=== PATIENT | female | born 1995 | race Caucasian/White ===

== ENCOUNTER 2024-12-03 14:04 | Outpatient (OUT) | payer MEDICAID, SELFPAY ==
[2024-12-03 14:57] LABS: Basophils Absolute Auto 0.1 10^3/uL (0.0-0.1); Basophils Percent Auto 0.5 % (0.2-2.0); Eosinophils Absolute Auto 0.1 10^3/uL (0.0-0.7); Eosinophils Percent Auto 0.5 % (0.9-7.0); Hematocrit 40.4 % (36.0-48.0); Hemoglobin 13.7 g/dL (12.0-16.0); Immature Granulocytes Abs Auto 0.03 10^3/uL (0.00-0.03); Immature Granulocytes Pct Auto 0.3 % (0.0-0.5); Lymphocytes Absolute Auto 2.5 10^3/uL (1.2-3.8); Lymphocytes Percent Auto 26.3 % (20.5-60.0); Mean Corpuscular HGB Conc 33.9 g/dL (29.9-35.2); Mean Corpuscular Hemoglobin 31.1 pg (26.7-34.0); Mean Corpuscular Volume 91.6 fL (81.0-99.0); Mean Platelet Volume 10.9 fL (9.5-13.5); Monocytes Absolute Auto 0.6 10^3/uL (0.3-0.8); Monocytes Percent Auto 6.2 % (1.7-12.0); Neutrophils Absolute Auto 6.2 10^3/uL (1.4-6.5); Neutrophils Percent Auto 66.2 % (43.0-75.0); Platelet Count 264 10^3/uL (150-450); Red Blood Count 4.41 10^6/uL (4.20-5.40); Red Cell Distribution Width 11.9 % (11.0-15.0); White Blood Count 9.4 10^3/uL (4.0-11.0)
[2024-12-03 15:10] LABS: Estimated Average Glucose 120 mg/dL; Glycohemoglobin A1C 5.8 % (4.5-6.2)
[2024-12-03 15:41] LABS: Thyroid Stimulating Hormone 0.869 uIU/mL (0.358-3.740)
[2024-12-03 15:42] LABS: HCG Quantitative <1 mIU/mL
[2024-12-03 15:48] LABS: Free T4 1.06 ng/dL (0.76-1.46)
[2024-12-04 04:07] LABS: FSH 3.6 mIU/mL (.); Luteinizing Hormone(LH) 10.1 mIU/mL (.)
[2024-12-07 02:07] LABS: Anti-Mullerian Hormone (AMH) 3.98 ng/mL (.)
== END 2024-12-03 14:05 | disposition home or self-care (01) ==
LOC: LAB 14:10
PROVIDERS: Visit Provider Obstetrics & Gynecology
DX: Z31.89 Encounter for other procreative management (principal); N97.0 Female infertility associated with anovulation
CPT/HCPCS: 36415; 82397; 82626; 82627; 83001; 83002; 83036; 84439; 84443; 84702; 85025

== ENCOUNTER 2024-12-09 13:02 | Outpatient (OUT) | payer MEDICAID, SELFPAY ==
[2024-12-10 04:08] LABS: Progesterone 12.5 ng/mL (.)
== END 2024-12-09 13:03 | disposition home or self-care (01) ==
LOC: LAB 13:02
PROVIDERS: Visit Provider Obstetrics & Gynecology
DX: N97.0 Female infertility associated with anovulation (principal); Z31.89 Encounter for other procreative management
CPT/HCPCS: 36415; 84144

== ENCOUNTER 2025-01-20 13:19 | Outpatient (OUT) | payer MEDICAID, SELFPAY ==
--- OUTSIDE RECORDS SUMMARY | 2025-01-20 11:10 | XMS_ITS | Encounter Summary ---
Author Organization [facility] Address [address] [place] [address] Care Team Providers Care Tight Barrel Inspector Name Role Phone Virginia Oviedo MD Primary Care Provider [phone] Reason for Visit * Reason Comments Pre-op Visit Encounter Details Date Type Department Care Team (Late st Contact Info) Description 01/20/2025 11:10 AM EDT Consult [facility] [address] [facility] [place] [address] Hung Thompson [address] [place], [facility]11 Pre-op examination; PCOS (polycystic ovarian syndrome); Anovulation; Endometrial polyp Social History Tobacco Use Types Packs/Day Years Used Date Smoking Tobacco: Never Assessed Comments Unknown Sex and Gender Information Value Date Recorded Sex Assigned at Not on file Legal Sex Female 7:28 PM EDT Gender Identity Not on file Sexual Orientation Not on file documented as of this encounter Last Filed Vital Signs Vital Sign Reading Time Taken Comments Blood Pressure 118/70 01/20/2025 11:52 AM EDT Pulse - - Temperature - - Respiratory Rate - - Oxygen Saturation - - Inhaled Oxygen Concentration - - Weight 71.6 kg (157 lb 12.8 oz) 11:52 AM EDT Height - - Body Mass Index 24.71 11/17/2022 12:00 PM EDT documented in this encounter Plan of Treatment Upcoming Encounters Date Type Department Care Team (Late st Contact Info) Description 02/16/2025 2:20 PM EDT Office Visit [facility] [address] [facility] [id number] Hung Thompson, DO [address] [facility] [address] [place], [place] [id number] documented as of this encounter Visit Diagnoses Diagnosis Pre-op examination PCOS (polycystic ovarian syndrome) Polycystic ovaries Anovulation Female infertility associated with anovulation Endometrial polyp Polyp of corpus uteri documented in this encounter Care Teams Tight Barrel Inspector Relationship Specialty Start Date End Date Virginia Oviedo MD [address] [place] [address] PCP - General Family Medicine 11/17/24 documented as of this encounter
--- OUTSIDE RECORDS SUMMARY | 2025-01-20 13:21 | XMS_ITS | Encounter Summary ---
Author Organization [facility] [employer] [facility] tem Address [id number] [address] [place] [address] Care Team Providers Care Government Contracts Manager Name Role Phone Tg Vicente APRN-[facility] Primary Care Provider [phone] Reason for Referral * Diagnostic Imaging (Routine) - Closed Specialty Diagnoses / Procedures Referred By Contac t Referred To Contact Maternal and Medicine Diagnoses Pyelectasis of fetus on ultrasound Procedures US MFM with or without consult Zion Hunter MD [address] [address] Phone: tel: fax: Maternal- Medicine at [address] [address] Phone: tel: fax: Referral ID Status Reason Start Date Expiration Date Visits Re quested Visits Authorized [id number] Closed 11/16/2020 11/16/2021 1 1 Encounter Details Date Type Department Care Team (Late st Contact Info) Description 11/16/2020 Orders Only Maternal- Medicine at [facility] [address] [place] [id number] Zion Hunter MD [address] [address] Pyelectasis of fetus on ultrasound (Primary Dx) Social History Tobacco Use Types Packs/Day Years Used Date Smoking Tobacco: Never Childcare Answer Date Recorded Childcare Unknown 09/28/2020 Employment Answer Date Recorded Employment Unknown 09/28/2020 Purpose - Life Answer Date Recorded Purpose and direction in life Unknown Comments Yes Sex and Gender Information Value Date Recorded Sex Assigned at Not on file Legal Sex Female 2:55 PM EST Gender Identity Not on file Sexual Orientation Not on file COVID-19 Exposure Response Date Recorded In the last month, have you been in contact with someone who was confirmed or suspected to have Coronavirus / COVID-19? No / Unsure 11/16/2020 12:42 PM EDT documented as of this encounter Plan of Treatment Not on file documented as of this encounter Results * [facility] OB FOLLOW-UP, 1 FETUS (02/08/2021 4:26 PM EDT) Anatomical Region Laterality Modality Pelvis Ultrasound 02/08/2021 4:08 PM EDT Impressions 02/08/2021 4:29 PM EDT IMPRESSION: 1. Single intrauterine gestation with EFW at the 87th percentile. AC measures at the 94th percentile. 2. Amniotic fluid volume assessment is normal. 3. Previously identified left pyelectasis not seen on today's exam. Narrative 02/08/2021 4:29 PM EDT OBSTETRICS REPORT (Signed Final 02/08/2021 16:29) PATIENT INFO: ID #: [id number] : [birth year] (25 yrs)(F) Name: JOSE MARIA CORONA Visit Date: 02/08/2021 16:08 PERFORMED BY: Performed By: Arlene Farooq RDMS Attending: Hema Harding MD Referred By: Hung Thompson DO Ref. Address: [address] [place] [address] [place] [address] Location: Maternal Medicine [facility] SERVICE(S) PROVIDED: OB Follow-up, 1 fetus [id number] INDICATIONS: Screening for follow-up survey Z36.2 EVALUATION: Num Of Fetuses: 1 Heart Rate(bpm): 155 Cardiac Activity: Present & appears normal Presentation: Cephalic Placenta: Posterior, away from cervical os Amniotic Fluid EDUAR FV: Subjectively within normal limits EDUAR Sum(cm) %Tile Largest Pocket(cm) 19.96 75 5.88 RUQ(cm) RLQ(cm) LUQ(cm) LLQ(cm) 4.64 5.4 5.88 4.04 BIOMETRY: BPD: 91.5 mm G.Age: 37w 1d > 99 % OFD: 110.9 mm HC: 322.8 mm G.Age: 36w 3d 97 % AC: 304.8 mm G.Age: 34w 3d 94 % FL: 60.1 mm G.Age: 31w 2d 12 % HUM: 54.9 mm G.Age: 32w 0d 44 % CER: 43 mm G.Age: 33w 6d 77 % LV: 3.6 mm CM: 9.3 mm TIB: 55.9 mm G.Age: 32w 6d 65 % CI: 82.5 % 70 - 86 FL/HC: 18.6 % 19.1 - 21.3 HC/AC: 1.06 0.96 - 1.17 FL/BPD: 65.7 % 71 - 87 FL/AC: 19.7 % 20 - 24 Est. FW: 2330 gm 5 lb 2 oz 87 % OB HISTORY: : 1 GESTATIONAL AGE: LMP: 32w 3d Date: 06/26/20 OSCAR: 04/02/21 U/S Today: 34w 6d OSCAR: 03/16/21 Best: 32w 3d Det. By: LMP (06/26/20) OSCAR: 04/02/21 ANATOMY: Cranium: Appears normal Cavum: Appears normal Ventricles: Appear normal Cerebellum: Appears normal Posterior Fossa: Appears normal Heart: Not well visualized RVOT: Not well visualized LVOT: Not well visualized Diaphragm: Appears normal Stomach: Appears normal, left sided Abdomen: Appears normal Cord Vessels: Appears normal (3 vessel cord) Kidneys: Appear normal Bladder: Appears normal CERVIX UTERUS ADNEXA: Cervix Not visualized due to late gest. age Uterus Gravid uterus Left Ovary Not visualized Right Ovary Not visualized Adnexa No adnexal masses identified RECOMMENDATIONS: 1. Subsequent follow up or other follow up as clinically determined by primary OB provider unless otherwise specified by MFM. 2. Results forwarded to ordering provider so they can follow up with the patient as necessary. Hema Harding MD Electronically Signed Final Report 02/08/2021 16:29 Procedure Hema Huffman MD - 02/08/2021 OBSTETRICS REPORT (Signed Final 02/08/2021 16:29) PATIENT INFO: ID #: [id number] : [birth year] (25 yrs)(F) Name: JOSE MARIA Reyna CJ Visit Date: 02/08/2021 16:08 PERFORMED BY: Performed By: Arlene Farooq RDMS Attending: Hema Harding MD Referred By: Hung Thompson DO Ref. Address: [address] [place] [address] [place] [address] Location: Maternal Medicine [facility] SERVICE(S) PROVIDED: OB Follow-up, 1 fetus [id number] INDICATIONS: Screening for follow-up survey Z36.2 EVALUATION: Num Of Fetuses: 1 Heart Rate(bpm): 155 Cardiac Activity: Present & appears normal Presentation: Cephalic Placenta: Posterior, away from cervical os Amniotic Fluid EDUAR FV: Subjectively within normal limits EDUAR Sum(cm) %Tile Largest Pocket(cm) 19.96 75 5.88 RUQ(cm) RLQ(cm) LUQ(cm) LLQ(cm) 4.64 5.4 5.88 4.04 BIOMETRY: BPD: 91.5 mm G.Age: 37w 1d > 99 % OFD: 110.9 mm HC: 322.8 mm G.Age: 36w 3d 97 % AC: 304.8 mm G.Age: 34w 3d 94 % FL: 60.1 mm G.Age: 31w 2d 12 % HUM: 54.9 mm G.Age: 32w 0d 44 % CER: 43 mm G.Age: 33w 6d 77 % LV: 3.6 mm CM: 9.3 mm TIB: 55.9 mm G.Age: 32w 6d 65 % CI: 82.5 % 70 - 86 FL/HC: 18.6 % 19.1 - 21.3 HC/AC: 1.06 0.96 - 1.17 FL/BPD: 65.7 % 71 - 87 FL/AC: 19.7 % 20 - 24 Est. FW: 2330 gm 5 lb 2 oz 87 % OB HISTORY: : 1 GESTATIONAL AGE: LMP: 32w 3d Date: 06/26/20 OSCAR: 04/02/21 U/S Today: 34w 6d OSCAR: 03/16/21 Best: 32w 3d Det. By: LMP (06/26/20) OSCAR: 04/02/21 ANATOMY: Cranium: Appears normal Cavum: Appears normal Ventricles: Appear normal Cerebellum: Appears normal Posterior Fossa: Appears normal Heart: Not well visualized RVOT: Not well visualized LVOT: Not well visualized Diaphragm: Appears normal Stomach: Appears normal, left sided Abdomen: Appears normal Cord Vessels: Appears normal (3 vessel cord) Kidneys: Appear normal Bladder: Appears normal CERVIX UTERUS ADNEXA: Cervix Not visualized due to late gest. age Uterus Gravid uterus Left Ovary Not visualized Right Ovary Not visualized Adnexa No adnexal masses identified RECOMMENDATIONS: 1. Subsequent follow up or other follow up as clinically determined by primary OB provider unless otherwise specified by MFM. 2. Results forwarded to ordering provider so they can follow up with the patient as necessary. Hema Harding MD Electronically Signed Final Report 02/08/2021 16:29 IMPRESSION: IMPRESSION: 1. Single intrauterine gestation with EFW at the 87th percentile. AC measures at the 94th percentile. 2. Amniotic fluid volume assessment is normal. 3. Previously identified left pyelectasis not seen on today's exam. us Zion Hunter MD IMG US ORDERABLES Final Resul t documented in this encounter Visit Diagnoses Diagnosis Pyelectasis of fetus on ultrasound- Primary Pyelectasis of fetus on ultrasound Encounter for other screening follow-up documented in this encounter Care Teams Government Contracts Manager Relationship Specialty Start Date End Date Tg Vicente APRN-[facility] [address] [place] [address] PCP - General Nurse Practitioner 11/16/20 documented as of this encounter
--- OUTSIDE RECORDS SUMMARY | 2025-01-20 13:21 | XMS_ITS | Clinical Summary ---
Author Organization [facility] Address [address] [place] [address] Care Team Providers Care Sr. Strategic Sourcing Manager Name Role Phone Virginia Oviedo MD Primary Care Provider [phone] Allergies Active Allergy Reactions Criticality Noted Date Comments Doxycycline Hives Medium 08/25/2023 Other Reaction(s): hives Tetracycline 09/29/2020 Medications metFORMIN XR (Glucophage-XR) 500 MG 24 hr tabletIndication s:Anovulation,In sulin resistance Take 1 tablet (500 mg) by mouth in the evening. Take with meals Do not crush, chew, or split. 30 tablet 11 12/05/2024 Active Encounters Date Type Department Care Team Description 01/20/2025 11:10 AM EDT Consult [facility] [address] [place] [address] Hung Thompson DO Pre-op examination; PCOS (polycystic ovarian syndrome); Anovulation; Endometrial polyp 12/11/2024 Results Follow-Up [facility] [address] [place] [address] Nelli Felipe LPN 12/09/2024 Clinisync Result Encounter [facility] External Department Unsolicited Hung Thompson DO 12/05/2024 Telephone [facility] [address] [place] [address] Felicita Pinto LPN 12/03/2024 1:00 PM EDT Ancillary Procedure [facility] [address] [place] [phone] Encounter for fertility planning; Anovulation 12/03/2024 Clinisync Result Encounter [facility] External Department Unsolicited Hung Thompson DO 11/24/[address] [facility] [address] [place] [phone] Felicita Pinto LPN Follow-up 11/17/2024 11:20 AM EDT Office Visit [facility] [address] [place] [phone] Hung Thompson DO Encounter for fertility planning; PCOS (polycystic ovarian syndrome); Anovulation 11/17/2024 Bamboo flowsheet [facility] [address] [place] [phone] Hung Thompson DO from Last 3 Months Social History Tobacco Use Types Packs/Day Years Used Date Smoking Tobacco: Never Assessed Comments Unknown Sex and Gender Information Value Date Recorded Sex Assigned at Not on file Legal Sex Female 7:28 PM EDT Gender Identity Not on file Sexual Orientation Not on file Last Filed Vital Signs Vital Sign Reading Time Taken Comments Blood Pressure 118/70 01/20/2025 11:52 AM EDT Pulse - - Temperature - - Respiratory Rate - - Oxygen Saturation - - Inhaled Oxygen Concentration - - Weight 71.6 kg (157 lb 12.8 oz) 025 11:52 AM EDT Height 170.2 cm (5' 7 ) 11/17/2022 12:0 0 PM EDT Body Mass Index 24.71 11/17/2022 12:00 PM EDT Plan of Treatment Upcoming Encounters Date Type Department Care Team (Late st Contact Info) Description 02/16/2025 2:20 PM EDT Office Visit [facility] [address] [place] [phone] Hung Thompson, [address] [place] [address] [place] [address] Health Maintenance Due Date Last Done Comments Influenza Vaccine (#1) 2025 04/20/2008, 2006 Procedures Procedure Name Priority Date/Time Associated Diagnosis Comments ALL PROGESTERONE Routine 12/09/2024 1:11 PM EDT ALL DEHYDROEPIANDROSTERONE Routine 12/03 2:28 PM EDT ALL ANTI-MULLERIAN HORMONE Routine 12/03 2:28 PM EDT ALL FOLLICLE STIMULATING HORMONE Routine 12/03/2024 2:28 PM EDT ALL LUTEINIZING HORMONE Routine 12/04/19 2:28 PM EDT ALL DHEA SULFATE Routine 12/03/2024 2:28 PM EDT ALL THYROXINE (T4) FREE Routine 12/04/19 2:28 PM EDT [facility] PREG QUANT HCG Routine 12/03/2024 2: 28 PM EDT ALL THYROID STIM HORMONE Routine 025 2:28 PM EDT MLR HEMOGLOBIN A1C Routine 12/03/2024 2: 28 PM EDT ALL CBC WITH AUTO DIFF Routine 2:28 PM EDT US PELVIC COMPLETE W/ TV Routine 025 1:42 PM EDT Encounter for fertility planning Anovulation from Last 3 Months Results * ALL PROGESTERONE (12/09/2024 1:11 PM EDT) PROGESTERONE 12.5 . ng/mL [facility] Comment: Follicular phase 0.1 - 0.9 Luteal phase 1.8 - 23.9 Ovulation phase 0.1 - 12.0 First trimester 11.0 - 44.3 Second trimester 25.4 - 83.3 Third trimester 58.7 - 214.0 Postmenopausal 0.0 - 0.1 Performed at: [facility] [id number] Snow Plow Operator: Barrington Reyes PhD, Phone: [phone] 12/09/2024 1:11 PM EDT 12/09/2024 1:14 PM EDT Narrative CLINISYNC - 12/10/2024 4:08 AM EDT Hung Jay DO CLINISYNC Final Result Performing Organization Address [facility] Co de Phone Number [facility] * [facility] PREG QUANT HCG (12/03/2024 2:28 PM EDT) Pathologist [facility] HCG QUANTITATIVE <1 mIU/mL [facility] Comment: 5-50 0.2-1 WEEK 50-500 1-2 WEEKS 100-5,000 2-3 WEEKS 500-10,000 3-4 WEEKS 1,000-50,000 4-5 WEEKS 10,000-100,000 5-6 WEEKS 15,000-200,000 6-8 WEEKS 10,000-100,000 2-3 MONTHS 12/03/2024 2:28 PM EDT 12/03/2024 2:30 PM EDT Narrative CLINISYNC - 12/03/2024 3:42 PM EDT Hung Jay DO CLINISYNC Final Result Performing Organization Address [facility] Co de Phone Number [facility] * MLR HEMOGLOBIN A1C (12/03/2024 2:28 PM EDT) [facility] GLYCOHEMOGLOBIN A1C 5.8 4.5 - 6.2 % [facility] Comment: ADA RECOMMENDED LIMIT 4.0 - 6.0 ADA THERAPEUTIC TARGET < 7.0 ACTION SUGGESTED > 7.0 ESTIMATED AVERAGE GLUCOSE 120 mg/dL TB 12/03/2024 2:28 PM EDT 12/03/2024 2:30 PM EDT Narrative CLINISYNC - 12/03/2024 3:18 PM EDT [facility] Jay DO CLINISYNC Final Result Performing Organization Address [facility] Co de Phone Number [facility] * ALL THYROXINE (T4) FREE (12/03/2024 2:28 PM EDT) FREE T4 1.06 0.76 - 1.46 ng/dL [facility] 12/03/2024 2:28 PM EDT 12/03/2024 2:30 PM EDT Narrative CLINISYNC - 12/03/2024 3:51 PM EDT Hung Jay DO CLINISYNC Final Result Performing Organization Address [facility] Phone Number [facility] * ALL THYROID STIM HORMONE (12/03/2024 2:28 PM EDT) THYROID STIMULATING HORMONE 0.869 0.358 - 3.740 uIU/mL [facility] 12/03/2024 2:28 PM EDT 12/03/2024 2:30 PM EDT Narrative CLINISYNC - 12/03/2024 3:42 PM EDT Hunghuong Ayalao DO CLINISYNC Final Result Performing Organization Address [facility] Number [facility] * ALL LUTEINIZING HORMONE (12/03/2024 2:28 PM EDT) LUTEINIZING HORMONE(LH) 10.1 . mIU/mL [facility] Comment: Adult Female Range Follicular phase 2.4 - 12.6 Ovulation phase 14.0 - 95.6 Luteal phase 1.0 - 11.4 Postmenopausal 7.7 - 58.5 12/03/2024 2:28 PM EDT 12/03/2024 2:30 PM EDT Narrative CLINISYNC - 12/04/2024 4:07 AM EDT Hung Jay DO CLINISYNC Final Result Performing Organization Address [facility] Co de Phone Number [facility] * ALL FOLLICLE STIMULATING HORMONE (12/03/2024 2:28 PM EDT) FSH 3.6 . mIU/mL [facility] Comment: Adult Female Range Follicular phase 3.5 - 12.5 Ovulation phase 4.7 - 21.5 Luteal phase 1.7 - 7.7 Postmenopausal 25.8 - 134.8 Performed at: [address] [id number] Snow Plow Operator: Barrington Reyes PhD, Phone: [phone] 12/03/2024 2:28 PM EDT 12/03/2024 2:30 PM EDT Narrative CLINISYNC - 12/04/2024 4:07 AM EDT Hung Jay DO CLINISYNC Final Result [facility] * ALL DHEA SULFATE (12/03/2024 2:28 PM EDT) DHEA-SULFATE 211.0 84.8 - 378.0 ug/dL [facility] 12/03/2024 2:28 PM EDT 12/03/2024 2:30 PM EDT Narrative CLINISYNC - 12/04/2024 4:07 AM EDT [facility] Jay DO CLINISYNC Final Result [facility] * ALL DEHYDROEPIANDROSTERONE (12/03/2024 2:28 PM EDT) DHEA, SERUM 256 31 - 701 ng/dL [facility] Comment: This test was developed and its performance characteristics determined by [facility]. It has not been cleared or approved by the Food and Drug Administration. Performed at: [address] [id number] Snow Plow Operator: Nilo Campbell MD, Phone: [phone] 12/03/2024 2:28 PM EDT 12/03/2024 2:30 PM EDT Narrative CLINISYNC - 12/12/2024 10:07 PM EDT us Hung Jay DO CLINISYNC Final Result [facility] * (ABNORMAL) ALL CBC WITH AUTO DIFF (12/03/2024 2:28 PM EDT) [facility] WBC 9.4 4.0 - 11.0 10 3/uL [facility] TBH RBC 4.41 4.20 - 5.40 10 6/uL [facility] TBH HGB 13.7 12.0 - 16.0 g/dL [facility] TBH HCT 40.4 36.0 - 48.0 % [facility] TBH MCV 91.6 81.0 - 99.0 fL TBH TBH MCH 31.1 26.7 - 34.0 pg TBH TBH MCHC 33.9 29.9 - 35.2 g/dL [facility] TBH RDW 11.9 11.0 - 15.0 % TBH TBH PLT 264 150 - 450 10 3/uL TBH TBH MPV 10.9 9.5 - 13.5 fL [facility]H NEUTROPHILS PERCENT AUTO 66.2 43.0 - 75.0 % TB[facility] LYMPHOCYTES PERCENT AUTO 26.3 20.5 - 60.0 % TB[facility] MONOCYTES PERCENT AUTO 6.2 1.7 - 12.0 % [facility] TBH EO % 0.5(L) 0.9 - 7.0 % [facility]H BASOPHILS PERCENT AUTO 0.5 0.2 - 2.0 % [facility] IMMATURE GRANULOCYTES PCT AUTO 0.3 0.0 - 0.5 % TBH NEUTROPHILS ABSOLUTE AUTO 6.2 1.4 - 6.5 10 3/uL TB[facility] LYMPHOCYTES ABSOLUTE AUTO 2.5 1.2 - 3.8 10 3/uL TB[facility] MONOCYTES ABSOLUTE AUTO 0.6 0.3 - 0.8 10 3/uL [facility] TBH EO # 0.1 0.0 - 0.7 10 3/uL TBH BASOPHILS ABSOLUTE AUTO 0.1 0.0 - 0.1 10 3/uL [facility] IMMATURE GRANULOCYTES ABS AUTO 0.03 0.00 - 0.03 10 3/uL [facility] 12/03/2024 2:28 PM EDT 12/03/2024 2:30 PM EDT Narrative CLINISYNC - 12/03/2024 2:58 PM EDT [facility] Jay DO CLINISYNC Final Result Performing Organization Address City/[facility] Co de Phone Number [facility] * ALL ANTI-MULLERIAN HORMONE (12/03/2024 2:28 PM EDT) ANTI-MULLERIAN HORMONE (AMH) 3.98 . ng/mL [facility] Comment: For assays employing antibodies, the possibility exists for interference by heterophile antibodies in the samples.1 1.Rona Mello Interferences in Immunoassays - still a threat. Clin. Chem. 2000; 46: 7986-0934. This test was developed and its performance characteristics determined by [facility]. It has not been cleared or approved by the Food and Drug Administration. Reference Range: Females 26 - 30y: 1.03 - 11.10 Median 4.20 AMH concentrations of >= 1.06 ng/mL is correlated with a better response to ovarian stimulation, produced more retrievable oocytes and higher odds of live according to Alexer et al. Fertility and Sterility. 2010: 94:5136-2104. The current AMH test method correlates with the study method with a slope of 0.94. Females at risk of ovarian hyperstimulation syndrome or polycystic ovarian syndrome (PCOS) may exhibit elevated serum AMH concentrations. AMH levels from PCOS patients may be 2 to 5 fold higher than age-appropriate reference interval values. Granulosa cell tumors of the ovary may secrete AMH along with other tumor markers. Elevated AMH is not specific for malignancy, and the assay should not be used exclusively to diagnose or exclude an AMH-secreting ovarian tumor. Performed at: [facility] [address] [place] [id number] Snow Plow Operator: Loco Gill MD, Phone: [phone] 12/03/2024 2:28 PM EDT 12/03/2024 2:30 PM EDT Narrative CLINISYNC - 12/07/2024 2:07 AM EDT Hung Jay DO CLINISYNC Final Result CLINISYNC [facility] * US Pelvis w/ TV (12/03/2024 1:42 PM EDT) Anatomical Region Laterality Modality Pelvis Ultrasound 12/06/2024 8:55 AM EDT Narrative 12/06/2024 8:55 AM EDT EXAM: Pelvic Ultrasound, Transabdominal and Transvaginal: REASON FOR EXAM: Anovulation. COMPARISON: None. TECHNIQUE: Longitudinal and transverse grayscale, and color Doppler images of the pelvis obtained transabdominally and endovaginally. FINDINGS: The bladder is normal where visualized. No pelvic free fluid. The uterus is of normal size and position. The endometrium is prominent near the uterine fundus. Trilaminar heterogeneous appearance. There is a bulbous hypoechoic/hyperechoic nodule anterior body adjacent to the fundal endometrium measuring 1.22 x 1.54 cm. The ovaries are of normal size and morphology. Scattered follicles present in both ovaries. Color Doppler in both ovaries noted. Measurements: Uterus: 9.0 x 4.3 x 6.3 cm Volume: 129.8 mL EM: 4 mm Right Ovary: 3.6 x 2.1 x 3.8 cm Volume: 15.3 mL Left Ovary: 2.6 x 1.7 x 3.3 cm Volume: 7.8 mL IMPRESSION, Transabdominal Exam: Asymmetric echogenic and hypoechoic nodule anterior to the endometrium. IMPRESSION, Endovaginal Exam: There is an asymmetric area of altered echogenicity of the anterior submucosal endometrium. Not classic for a polyp. The differential includes focal endometrial thickening, endometrial polyp, submucosal fibroid or arcuate uterine morphology. Correlate with hysterosonography. This report is generated using voice recognition reporting ([employer]). On occasion, [employer] erroneously drops words from the report or replaces the spoken word with a similar sounding word. Please call with any questions/concerns regarding the report. Dictated and transcribed 12/05/2024/[email or web address] This report has been electronically signed and approved by the interpreting radiologist. Procedure Note Mendez Zaldivar MD - 12/06/2024 EXAM: Pelvic Ultrasound, Transabdominal and Transvaginal: REASON FOR EXAM: Anovulation. COMPARISON: None. TECHNIQUE: Longitudinal and transverse grayscale, and color Doppler imagesof the pelvis obtained transabdominally and endovaginally. FINDINGS: The bladder is normal where visualized. No pelvic free fluid. The uterus is of normal size and position. The endometrium is prominent near the uterine fundus. Trilaminarheterogeneous appearance. There is a bulbous hypoechoic/hyperechoic noduleanterior body adjacent to the fundal endometrium measuring 1.22 x 1.54cm. The ovaries are of normal size and morphology. Scattered follicles present in both ovaries. Color Doppler in both ovariesnoted. Measurements: Uterus: 9.0 x 4.3 x 6.3 cm Volume: 129.8 mL EM: 4 mm Right Ovary: 3.6 x 2.1 x 3.8 cm Volume: 15.3 mL Left Ovary: 2.6 x 1.7 x 3.3 cm Volume: 7.8 mL IMPRESSION, Transabdominal Exam: Asymmetric echogenic and hypoechoic nodule anterior to the endometrium. IMPRESSION, Endovaginal Exam: There is an asymmetric area of altered echogenicity of the anteriorsubmucosal endometrium. Not classic for a polyp. The differential includesfocal endometrial thickening, endometrial polyp, submucosal fibroid orarcuate uterine morphology. Correlate with hysterosonography. This report is generated using voice recognition reporting ([employer]).On occasion, [employer] erroneously drops words from the report orreplaces the spoken word with a similar sounding word. Please call withany questions/concerns regarding the report. Dictated and transcribed 12/05/2024/[email or web address] This report has been electronically signed and approved by theinterpreting radiologist. Hung Thompson DO [facility] US PROCEDURES Final Result from Last 3 Months Insurance [facility] MEDICAID [place] Care Teams Sr. Strategic Sourcing Manager Relationship Specialty Start Date End Date Virginia Oviedo MD [address] [place] [address] PCP - General Family Medicine 11/17/24
--- OUTSIDE RECORDS SUMMARY | 2025-01-20 13:21 | XMS_ITS | Clinical Summary ---
Author Organization [facility] Address [address] [place] [address] Care Team Providers Care Software Technical Lead Name Role Phone Virginia Oviedo MD Primary Care Provider [phone] Allergies Active Allergy Reactions Criticality Noted Date Comments Doxycycline Hives Medium 08/25/2023 Medications pantoprazole (PROTONIX) 20 MG tablet Take 1 tablet by mouth every morning (before breakfast) 90 tablet 1 08/28/2023 Active naproxen (NAPROSYN) 375 MG tablet Take 1 tablet 2 times a days with food for 5 days, then 1 tablet 2 times a day as needed for pain 40 tablet 09/19/2023 Active Active Problems Problem Noted Date Diagnosed Date Transaminitis 08/25/2023 Resolved Problems Problem Noted Date Diagnosed Date Resolved Date Cholecystitis 08/27/2023 09/18/2023 Acute biliary pancreatitis w ithout infection or necrosis 08/25/2023 10/04/2023 Leukocytosis 08/25/2023 09/18/2023 Social History Tobacco Use Types Packs/Day Years Used Date Smoking Tobacco: Never Smokeless Tobacco: Never Tobacco Cessation:Counseling Given: Not Answered Alcohol Use Standard Drinks/Week Comments Never 0 (1 standard drink = 0.6 oz pur e alcohol) AUDIT-C Answer Date Recorded Q1: How often do you have a drink containing alcohol? Never 08/25/2023 Q2: How many drinks containi ng alcohol do you have on a typical day when you are drinking? Patient does not drink Q3: How often do you have si x or more drinks on one occasion? Never 08/25/2023 Interpersonal Safety Domain Source: IP Abuse Scr eening Answer Date Recorded Read-Only, Retired: Physical Abuse Denies 09/19/2023 Read-Only, Retired: Verbal Abuse Denies 09/19/2023 Read-Only, Retired: Emotional abuse Denies 09/19/2023 Read-Only, Retired: Financial Abuse Denies 09/19/2023 Read-Only, Retired: Sexual abuse Denies 09/19/2023 Comments No Sex and Gender Information Value Date Recorded Sex Assigned at Not on file Legal Sex Female 3:23 AM EST Gender Identity Not on file Sexual Orientation Not on file Last Filed Vital Signs Vital Sign Reading Time Taken Comments Blood Pressure 105/69 10/04/2023 9:11 AM EDT Pulse 100 10/04/2023 9:11 AM EDT Temperature 36.8 C (98.3 F) 10/04/2023 9:11 AM EDT Respiratory Rate 17 09/19/2023 4:00 PM EST Oxygen Saturation 99% 09/19/2023 4:00 PM EST Inhaled Oxygen Concentration - - Weight 65.3 kg (144 lb) 10/04/2023 9:11 AM EDT Height 172.7 cm (5' 8 ) 09/03/2023 1:21 PM EST Body Mass Index 21.9 09/03/2023 1:21 PM EST Plan of Treatment Health Maintenance Due Date Last Done Comments Depression Screen 2009 HIV screen 2012 Hepatitis C screen 2015 Pap smear 2018 COVID-19 Vaccine ( season) 2024 DTaP/Tdap/Td vaccine (8 - Td or Tdap) 11/14/2024 11/14/2014, 04/20/2008, 12/11/2001, Additional history exists Flu vaccine (#1) 02/20/2025 05/10/2009 Hepatitis B vaccine Completed 1997, 1997, 1997 Hib vaccine Completed 08/18/1998, 02/1998, 1997, Additional history exists Polio vaccine Completed 12/11/2001, 07/24, 1997, Additional history exists Varicella vaccine Completed 04/20/2008, 08/18/1998 HPV vaccine Completed 10/29/2008, 10/2007, 04/20/2008 Meningococcal (ACWY) vaccine Completed 01/08/2014, 04/20/2008 Hepatitis A vaccine Aged Out No longe r eligible based on patient's age to complete this topic Meningococcal B vaccine Aged Out No l onger eligible based on patient's age to complete this topic Pneumococcal 0-49 years Vaccine Aged Out No longer eligible based on patient's age to complete this topic Insurance MEDICAID [place] Advance Directives * Full Code (Latest Code Status on File) Date Activated Date Inactivated Comments 08/25/2023 3:03 PM 08/28/2023 6:07 PM Care Teams Software Technical Lead Relationship Specialty Start Date End Date Virginia Oviedo MD [address] [place] [address] PCP - General Family Medicine 08/25/23
--- OUTSIDE RECORDS SUMMARY | 2025-01-20 13:21 | XMS_ITS | Encounter Summary ---
Author Organization [facility] tem Address [id number] [address] [place] [address] Care Team Providers Care Oil House Attendant Name Role Phone Tg Vicente APRN-DIAMOND SORTER Primary Care Provider [phone] Encounter Details Date Type Department Care Team (Late st Contact Info) Description 09/29/2020 Orders Only Maternal- Medicine at [facility] [address] [facility] [place] [address] External, Scanning Provider Social History Tobacco Use Types Packs/Day Years [...] on file documented as of this encounter Plan of Treatment Not on file documented as of this encounter Procedures Procedure Name Priority Date/Time Associated Diagnosis Comments US PREG LMTD 1 OR MORE FETUS Routine 08/26/2020 documented in this encounter Results * Ultrasound limited 1 or more fetus (08/26/2020) Anatomical Region Laterality Modality OB-DATA PROCESSING CONTROL CLERK Ultrasound Narrative 08/26/2020 See attached report us Scanning Provider External IMG US ORDERABLES Oswald johnny Result - Final documented in this encounter Visit Diagnoses Not on filedocumented in this encounter Care Teams Oil House Attendant Relationship Specialty Start Date End Date Tg Vicente APRN-DIAMOND SORTER [address] [place] [address] PCP - General Nurse Practitioner 11/16/20 documented as of this encounter
--- OUTSIDE RECORDS SUMMARY | 2025-01-20 13:21 | XMS_ITS | Clinical Summary ---
Author Organization [facility] tem Address [facility] [id number] [address] [place] [address] Care Team Providers Care Datacap Developer Name Role Phone VicenteDavidash MARTINEZ-HUMAN RESOURCE ADVISER Primary Care Provider [phone] Allergies Active Allergy Reactions Criticality Noted Date Comments Tetracyclines 09/29/2020 Medications ondansetron ODT (ZOFRAN-ODT) 4 mg disintegrating tablet Dissolve 4 mg on tongue every 6 (six) hours as needed for nausea or vomiting. Active vit no.[id number] ( VITAMIN) 27 mg iron- 800 mcg tablet Take 1 tablet by mouth daily. Active Family History Medical History Relation Name Comments Diabetes Father Hypertension Father Aneurysm Maternal Grandmother brain Hypertension Mother Heart disease Sister Relation Name Status Comments Father Maternal Grandmother Mother Sister Social History Tobacco Use Types Packs/Day Years Used Date Smoking Tobacco: Never Childcare Answer Date Recorded Childcare Unknown 09/28/2020 Employment Answer Date Recorded Employment Unknown 09/28/2020 Purpose - Life Answer Date Recorded Purpose and direction in life Unknown Comments No Sex and Gender Information Value Date Recorded Sex Assigned at Not on file Legal Sex Female 2:55 PM EST Gender Identity Not on file Sexual Orientation Not on file Plan of Treatment Health Maintenance Due Date Last Done Comments Depression Screening 2009 Tobacco Screening 2009 Adult BMI Screening 2015 Pap Smear 2018 DTaP,Tdap and Td Vaccines (2 - Td or Tdap) 11/14/2024 11/14/2014 Influenza Vaccine 03/23/2025 Medical Devices [place] [address] [employer] Care Teams Datacap Developer Relationship Specialty Start Date End Date Tg Vicente APRN-RONALD [address] [place], [place] [id number] PCP - General Nurse Practitioner 11/16/20
--- NOTE | 2025-01-20 13:52 | PM.PRESUREVA ---
History of Present Illness History of Present Illness Chief complaint: Endometrial Polyp, Thickened Endometrium Narrative: Patient presents for presurgical testing. The patient states she had a visit with Dr. Thompson because she is having trouble conceiving. She had an ultrasound which demonstrated an endometrial thickening which could be a polyp. The patient denies any abdominal pain, abnormal uterine bleeding, dysuria, hematuria, fever, or any other complaints. Review of Systems ROS Narrative REVIEW OF SYSTEMS: Negative except as stated in HPI, ten or more systems reviewed. Constitutional: No fever, chills, weakness ENT: No sore throat or epistaxis Cardiovascular: No edema, chest pain, palpitations, or activity intolerance Respiratory: No shortness of breath, cough, or wheezing Musculoskeletal: No joint pain or swelling Gastrointestinal: No abdominal pain, constipation, diarrhea, or vomiting Genitourinary: No dysuria or hematuria Neurological: No numbness, tingling, weakness, or headache Psychiatric: No mood changes PFSH PFSH Medical History (Updated 01/20/25 @ 13:43 by Luz Geiger NP) Anemia ?D64.9 - Anemia, unspecified (ICD-10) Migraine ?G43.909 - Migraine, unspecified, not intractable, without status migrainosus (ICD-10) Endometrial polyp ?N84.0 - Polyp of corpus uteri (ICD-10) PCOS (polycystic ovarian syndrome) ?E28.2 - Polycystic ovarian syndrome (ICD-10) Anovulation ?N97.0 - Female infertility associated with anovulation (ICD-10) Surgical History (Updated 01/20/25 @ 13:43 by Luz Geiger NP) History of esophagogastroduodenoscopy (EGD) ?Z98.890 - Other specified postprocedural states (ICD-10) History of cholecystectomy ?Z90.49 - Acquired absence of other specified parts of digestive tract (ICD-10) Family History (Updated 01/20/25 @ 13:43 by Luz Geiger NP) Other Family history of aneurysm Family history of cancer Family history of colon cancer Family history of diabetes mellitus Family history of hypertension POTS (postural orthostatic tachycardia syndrome) Social History (Updated 01/20/25 @ 13:36 by Luz Geiger NP) Within the past year, how often did you have a drink containing alcohol: monthly or less Smoking status: Never smoker Non-prescribed substance use: denies use Previous occupational history: Daycare Highest level of school completed/degree received: Bachelor's degree Meds Home Medications and Allergies Home Medications ?Medication ?Instructions ?Recorded ?Confirmed ?Type coenzyme Q10 30 mg capsule (Co 30 mg PO DAILY 01/20/25 01/20/25 History Q-10) metformin 500 mg tablet,extended 500 mg PO DAILY 01/20/25 01/20/25 History release 24 hr vit no.95-ferrous 1 tab PO DAILY 01/20/25 01/20/25 History fumarate 28 mg-folic acid 800 mcg tablet ( Multivitamins) Allergies Allergy/AdvReac Type Severity Reaction Status Date / Time doxycycline Allergy Hives Verified 01/20/25 13:34 Exam Narrative Exam Narrative: Constitutional: Awake, alert, comfortable, well-appearing, nontoxic, interactive, vital signs as charted Head: Normocephalic, atraumatic Neck: Supple, normal appearance, normal range of motion, no meningeal signs, no lymphadenopathy Respiratory: No respiratory distress, breath sounds clear Cardiovascular: Regular rate and rhythm, strong and regular heart tones Abdomen: Nontender, normal bowel sounds, soft, no CVA tenderness Musculoskeletal: Normal gait, no swelling or edema Skin: No rashes or induration, no lesions, only visible skin inspected Neuro: No neurological deficits, normal sensation Psychiatric: Oriented ?3, normal affect Assessment and Plan Assessment and Plan (1) Anovulation: (2) PCOS (polycystic ovarian syndrome): (3) Endometrial polyp: Plan D&C, hysteroscopy, possible MyoSure scheduled with Dr. Thompson February 06, 2025.
== END 2025-01-20 13:20 | disposition home or self-care (01) ==
LOC: PST 13:20
PROVIDERS: Visit Provider Obstetrics & Gynecology
DX: Z01.818 Encounter for other preprocedural examination (principal); E28.2 Polycystic ovarian syndrome; N97.0 Female infertility associated with anovulation
CPT/HCPCS: G0463

== ENCOUNTER 2025-02-06 06:11 | Day surgery (SDC) | payer MEDICAID, SELFPAY ==
[2025-01-20 13:49] VITALS: BP 126/84; PULSE 77; TEMP 36.3; O2SAT 99; BMI 24.6
[2025-02-06] VITALS (7 sets, daily range): BP systolic 108–123; BP diastolic 64–70; PULSE 77–110; TEMP 36.2–36.3; O2SAT 97–99
--- OUTSIDE RECORDS SUMMARY | 2025-02-06 06:13 | XMS_ITS | Encounter Summary ---
Author Organization [facility] Address [address] [place] [address] Care Team Providers Care Camera Control Operator Name Role Phone Virginia Oviedo MD Primary Care Provider [phone] Encounter Details Date Type Department Care Team (Late Contact Info) Description 12/19/2024 Abstract [facility] [address] [facility] [place] [address] Hung Thompson, DO [address] [place] [address] [place] [address] Social History Tobacco Use Types Packs/Day Years Used Date Smoking Tobacco: Never Assessed Comments Unknown Sex and Gender Information Value Date Recorded Sex Assigned at Not on file Legal Sex Female 7:28 PM EDT Gender Identity Not on file Sexual Orientation Not on file documented as of this encounter Plan of Treatment Upcoming Encounters Date Type Department Care Team (Late Contact Info) Description 02/16/2025 2:20 PM EDT Office Visit [facility] [address] [facility] [place] [address] Hung Thompson DO [address] [place] [id number] documented as of this encounter Visit Diagnoses Not on filedocumented in this encounter Care Teams Camera Control Operator Relationship Specialty Start Date End Date Virginia Oviedo MD [address] [place], [place] [id number] PCP - General Family Medicine 11/17/24 documented as of this encounter
--- OUTSIDE RECORDS SUMMARY | 2025-02-06 06:13 | XMS_ITS | Clinical Summary ---
Author Organization [facility] Address [address], [address] [place] [address] Care Team Providers Care Nut Steamer Name Role Phone Virginia Oviedo MD Primary Care Provider [phone] Allergies Active Allergy Reactions Criticality Noted Date [...] 3:03 PM 08/28/2023 6:07 PM Care Teams Nut Steamer Relationship Specialty Start Date End Date Virginia Oviedo MD [address] [place] [address] PCP - General Family Medicine 08/25/23
--- OUTSIDE RECORDS SUMMARY | 2025-02-06 06:13 | XMS_ITS | Clinical Summary ---
Author Organization [facility] Address [address] [place] [address] Care Team Providers Care Forensic Materials Engineer Name Role Phone Virginia Oviedo MD Primary Care Provider [phone] Allergies Active Allergy Reactions Criticality Noted Date [...] Description 01/20/2025 11:10 AM EDT Consult [facility] [address] [place] [address] Hung Thompson DO Pre-op examination; PCOS (polycystic ovarian syndrome); Anovulation; Endometrial polyp 12/19/2024 Abstract [facility] [place] [address] [place] [address] Hung Thompson DO 12/11/2024 Results Follow-Up [facility] [place] [address] [place] [address] Nelli Felipe LPN 12/09/2024 Clinisync Result Encounter [facility] External Department Unsolicited Hung Thompson DO 12/05/2024 Telephone [facility] [place] [facility] [place] [address] Felicita Pinto LPN 12/03/2024 1:00 PM EDT Ancillary Procedure [facility] [address] [place] [address] Encounter for fertility planning; Anovulation 12/03/2024 Clinisync Result Encounter [facility] External Department Unsolicited Hung Thompson DO 11/24/[address] [facility] [address] [place] [address] Felicita Pinto LPN Follow-up 11/17/2024 11:20 AM EDT Office Visit [facility] [address] [place] [address] Hung Thompson DO Encounter for fertility planning; PCOS (polycystic ovarian syndrome); Anovulation 11/17/2024 Bamboo flowsheet [facility] [address] [place] [address] Hung Thompson DO from Last 3 Months [...] 02/16/2025 2:20 PM EDT Office Visit [facility] [address] [place] [address] Hung Thompson DO [address] [place] [address] [place] [address] Health Maintenance Due Date Last Done Comments [...] EDT ALL THYROXINE (T4) FREE Routine 12/04/19 25 2:28 PM EDT [facility] PREG QUANT HCG [...] 214.0 Postmenopausal 0.0 - 0.1 Performed at: [address] [id number] Dressmaker Helper: Barrington Reyes PhD, Phone: [phone] 12/09/2024 1:11 PM EDT 12/09/2024 1:14 PM EDT Narrative CLINISYNC - 12/10/2024 4:08 AM EDT [facility] Jay DO CLINISYNC Final Result Performing Organization Address [facility] Co de Phone Number [facility] * [facility] PREG QUANT HCG (12/03/2024 2:28 PM EDT) Pathologist [facility] HCG QUANTITATIVE <1 mIU/mL TB Comment: 5-50 0.2-1 WEEK 50-500 1-2 WEEKS 100-5,000 2-3 WEEKS 500-10,000 3-4 WEEKS 1,000-50,000 4-5 WEEKS 10,000-100,000 5-6 WEEKS 15,000-200,000 6-8 WEEKS 10,000-100,000 2-3 MONTHS 12/03/2024 2:28 PM EDT 12/03/2024 2:30 PM EDT Narrative CLINISYNC - 12/03/2024 3:42 PM EDT [facility] DO CLINISY[facility] Final Result Performing Organization Address [facility]/State/ZIP Co de Phone Number [facility] * MLR HEMOGLOBIN A1C (12/03/2024 2:28 PM EDT) GLYCOHEMOGLOBIN A1C 5.8 4.5 - 6.2 % [facility] Comment: ADA RECOMMENDED LIMIT 4.0 - 6.0 ADA THERAPEUTIC TARGET < 7.0 ACTION SUGGESTED > 7.0 ESTIMATED AVERAGE GLUCOSE 120 mg/dL TB 12/03/2024 2:28 PM EDT 12/03/2024 2:30 PM EDT Narrative CLINISYNC - 12/03/2024 3:18 PM EDT Hung Jay DO CLINISYNC Final Result Performing Organization Address City/[facility]/ZIP Co de Phone Number [facility] * ALL THYROXINE (T4) FREE (12/03/2024 2:28 PM EDT) FREE T4 1.06 0.76 - 1.46 ng/dL TBH 12/03/2024 2:28 PM EDT 12/03/2024 2:30 PM EDT Narrative CLINISYNC - 12/03/2024 3:51 PM EDT [facility] Jay DO CLINISYNJ Final Result Performing Organization Address [facility] Co de Phone Number [facility] * ALL THYROID STIM HORMONE (12/03/2024 2:28 PM EDT) THYROID STIMULATING HORMONE 0.869 0.358 - 3.740 uIU/mL TBH 12/03/2024 2:28 PM EDT 12/03/2024 2:30 PM EDT Narrative CLINISYNC - 12/03/2024 3:42 PM EDT [facility] Jay DO [facility] Final Result Performing Organization Address [facility]/ZIP Co de Phone Number [facility] * ALL LUTEINIZING HORMONE (12/03/2024 2:28 PM EDT) LUTEINIZING HORMONE(LH) 10.1 . mIU/mL TBH Comment: Adult Female Range Follicular phase 2.4 - 12.6 Ovulation phase 14.0 - 95.6 Luteal phase 1.0 - 11.4 Postmenopausal 7.7 - 58.5 12/03/2024 2:28 PM EDT 12/03/2024 2:30 PM EDT Narrative CLINISYNC - 12/04/2024 4:07 AM EDT Hung Jay DO CLINISYNC Final Result Performing Organization Address [facility] de Phone Number [facility] * ALL FOLLICLE STIMULATING HORMONE (12/03/2024 2:28 PM EDT) FSH 3.6 . mIU/mL [facility] Comment: Adult Female Range Follicular phase 3.5 - 12.5 Ovulation phase 4.7 - 21.5 Luteal phase 1.7 - 7.7 Postmenopausal 25.8 - 134.8 Performed at: [address] [id number] Dressmaker Helper: Barrington Reyes PhD, Phone: [phone] 12/03/2024 2:28 PM EDT 12/03/2024 2:30 PM EDT Narrative CLINISYNC - 12/04/2024 4:07 AM EDT [facility] Jay DO CLINISYNC Final Result Performing Organization Address [facility] de Phone Number [facility] * ALL DHEA SULFATE (12/03/2024 2:28 PM EDT) DHEA-SULFATE 211.0 84.8 - 378.0 ug/dL [facility] 12/03/2024 2:28 PM EDT 12/03/2024 2:30 PM EDT Narrative CLINISYNC - 12/04/2024 4:07 AM EDT [facility] Jay DO CLINISYNC Final Result Performing Organization Address [facility] Phone Number [facility] * ALL DEHYDROEPIANDROSTERONE (12/03/2024 2:28 PM EDT) DHEA, SERUM 256 31 - 701 ng/dL [facility] Comment: This test was developed and its performance characteristics determined by [facility]. It has not been cleared or approved by the Food and Drug Administration. Performed at: [address] [id number] Dressmaker Helper: Nilo Campbell MD, Phone: [phone] 12/03/2024 2:28 PM EDT 12/03/2024 2:30 PM EDT Narrative CLINISYNC - 12/12/2024 10:07 PM EDT Hung Thompson DO CLINISYNC Final Result [facility] * (ABNORMAL) ALL CBC WITH AUTO DIFF (12/03/2024 2:28 PM EDT) Pathologist [facility] TB WBC 9.4 4.0 - 11.0 10 3/uL [...] Narrative CLINISYNC - 12/03/2024 2:58 PM EDT Hung Jay DO CLINISYNC Final Result [facility] * ALL ANTI-MULLERIAN HORMONE (12/03/2024 2:28 PM EDT) ANTI-MULLERIAN HORMONE (AMH) 3.98 . ng/mL [facility] Comment: For assays employing antibodies, the possibility exists for interference by heterophile antibodies in the samples.1 1.Rona Mello Interferences in Immunoassays - still a threat. Clin. Chem. 2000; 46: 2567-4131. This test was developed and its performance characteristics determined by [employer]. It has not been cleared or approved by the Food and Drug Administration. Reference Range: Females 26 - 30y: 1.03 - 11.10 Median 4.20 AMH concentrations of >= 1.06 ng/mL is correlated with a better response to ovarian stimulation, produced more retrievable oocytes and higher odds of live according to Alexer et al. Fertility and Sterility. 2010: 94:7433-0256. The current AMH test method correlates with [...] exclude an AMH-secreting ovarian tumor. Performed at: [facility] [address] [place] [id number] Dressmaker Helper: Loco Gill MD, Phone: [phone] 12/03/2024 2:28 PM EDT 12/03/2024 2:30 PM EDT Narrative CLINISYNC - 12/07/2024 2:07 AM EDT us Hung Thompson DO CHANA Final Result [facility] * US Pelvis w/ TV (12/03/2024 [...] report is generated using voice recognition reporting ([employer]). On occasion, [employer] erroneously drops words from the report or [...] report is generated using voice recognition reporting ([employer]).On occasion, [employer] erroneously drops words from the report orreplaces the spoken word with a similar sounding word. Please call withany questions/concerns regarding the report. Dictated and transcribed 12/05/2024/jimena This report has been electronically signed and approved by theinterpreting radiologist. us Hung Thompson DO IMG US PROCEDURES Final Result from Last 3 Months Insurance [employer] MEDICAID [place] Care Teams Forensic Materials Engineer Relationship Specialty Start Date End Date Virginia Oviedo MD [address] [place] [address] PCP - General Family Medicine 11/17/24
--- OUTSIDE RECORDS SUMMARY | 2025-02-06 06:13 | XMS_ITS | Encounter Summary ---
Author Organization [facility] [facility] tem Address [facility] [address] [place] [address] Care Team Providers Care Clinical Manager Name Role Phone Tg Vicente APRN-[facility] Primary Care Provider [phone] Reason for Referral * Diagnostic Imaging (Routine) - Closed Specialty Diagnoses / Procedures Referred By Contac t Referred To Contact Maternal and Medicine Diagnoses Pyelectasis of fetus on ultrasound Procedures US MFM with or without consult Zion Hunter MD [address] [address] Phone: tel: fax: Maternal- Medicine at [address] [address] Phone: tel: fax: Referral ID Status Reason Start Date Expiration Date Visits Re quested Visits Authorized [id number] Closed 11/16/2020 11/16/2021 1 1 Encounter Details Date Type Department Care Team (Late st Contact Info) Description 11/16/2020 Orders Only Maternal- Medicine at [facility] [address] [place] [phone] Zion Hunter MD [address] [address] Pyelectasis of fetus on ultrasound (Primary Dx) [...] documented as of this encounter Results * [facility] OB FOLLOW-UP, 1 FETUS (02/08/2021 4:26 PM [...] Final 02/08/2021 16:29) PATIENT INFO: ID #: [id number] : [birth year] (25 yrs)(F) Name: JOSE MARIA CORONA Visit Date: 02/08/2021 16:08 PERFORMED BY: Performed By: Arlene Farooq RDMS Attending: Hema Harding MD Referred By: Hung Thompson DO Ref. Address: [address] [place] [address] [place] [address] Location: Maternal Medicine Chan SERVICE(S) PROVIDED: OB Follow-up, 1 fetus [id number] INDICATIONS: Screening for follow-up survey Z36.2 EVALUATION: [...] Final 02/08/2021 16:29) PATIENT INFO: ID #: [id number] : [birth year] (25 yrs)(F) Name: JOSE MARIA Reyna CJ Visit Date: 02/08/2021 16:08 PERFORMED BY: Performed By: Arlene Farooq RDMS Attending: Hema Harding MD Referred By: Hung Thompson DO Ref. Address: [address] [place] [address] [place] [address] Location: Maternal Medicine Chan SERVICE(S) PROVIDED: OB Follow-up, 1 fetus [id number] INDICATIONS: Screening for follow-up survey Z36.2 EVALUATION: [...] follow-up documented in this encounter Care Teams Clinical Manager Relationship Specialty Start Date End Date Tg Vicente APRN-[facility]AL[facility] [address] [place] [address] PCP - General Nurse Practitioner 11/16/20 documented as of this encounter
--- OUTSIDE RECORDS SUMMARY | 2025-02-06 06:14 | XMS_ITS | Clinical Summary ---
Author Organization [facility] tem Address [facility] [place] [address] Care Team Providers Care Choir Director Name Role Phone VicenteDavidash MARTINEZ-BROKE BEATER Primary Care Provider [phone] Allergies Active Allergy Reactions Criticality Noted Date Comments Tetracyclines 09/29/2020 Medications ondansetron ODT (ZOFRAN-ODT) 4 mg disintegrating tablet Dissolve 4 mg on tongue every 6 (six) hours as needed for nausea or vomiting. Active vit no.571-fmnx-upmrn ( VITAMIN) 27 mg iron- 800 mcg [...] Devices Not on [place] [address] [employer] Care Teams Choir Director Relationship Specialty Start Date End Date Tg Vicente APRN-RONALD [address] [place], [place] [id number] PCP - General Nurse Practitioner 11/16/20
--- OUTSIDE RECORDS SUMMARY | 2025-02-06 06:14 | XMS_ITS | Encounter Summary ---
Author Organization [facility] tem Address [id number] [address] [place] [address] Care Team Providers Care Coal Pipeline Operator Name Role Phone Tg Vicente APRN-[employer]ER Primary Care Provider [phone] Encounter Details Date Type Department Care Team (Late st Contact Info) Description 09/29/2020 Orders Only Maternal- Medicine at [facility] [address] [facility] [place] [address] External, Scanning Provider Social History [...] more fetus (08/26/2020) Anatomical Region Laterality Modality OB-PERSONAL LINES APPRAISER Ultrasound Narrative 08/26/2020 See attached report us Scanning Provider External IMG US ORDERABLES Oswald johnny Result - Final documented in this encounter Visit Diagnoses Not on filedocumented in this encounter Care Teams Coal Pipeline Operator Relationship Specialty Start Date End Date Tg Vicente APRN-VEST PRESSER [address] [place] [address] PCP - General Nurse Practitioner 11/16/20 documented as of this encounter
[2025-02-06 06:24] LABS: Hematocrit 38.2 % (36.0-48.0); Hemoglobin 13.1 g/dL (12.0-16.0); Immature Granulocytes Abs Auto 0.02 10^3/uL (0.00-0.03); Immature Granulocytes Pct Auto 0.2 % (0.0-0.5); Lymphocytes Absolute Auto 3.3 10^3/uL (1.2-3.8); Mean Corpuscular HGB Conc 34.3 g/dL (29.9-35.2); Mean Corpuscular Hemoglobin 31.4 pg (26.7-34.0); Mean Corpuscular Volume 91.6 fL (81.0-99.0); Platelet Count 274 10^3/uL (150-450); Red Blood Count 4.17 10^6/uL (4.20-5.40); White Blood Count 8.3 10^3/uL (4.0-11.0)
--- NOTE | 2025-02-06 08:15 | PM.ONB ---
Brief Operative Note Date of procedure: 02/06/25 Pre-op diagnosis general: menorrhagia Post-op diagnosis: same as pre-op Procedure: NAME OF PROCEDURE: [d&c hysteroscopy] PROCEDURE: The patient was taken back to the Operating Room where she was prepped and draped in normal sterile fashion after being placed under general anesthesia without difficulty. She was also placed in the dorsal lithotomy position. A weighted speculum was placed in the patient?s vagina. The anterior lip of the cervix was identified and grasped with a single tooth tenaculum. The patient?s uterus was then sounded roughly to [? ] cm. The patient was then gently dilated using Hegar dilators. The hysteroscope was passed through the patient?s cervix into the uterus. Both ostia were identified. Normal appearing endometrium. No gross evidence of polyps, fibroids or malignancy. The hysteroscope was then removed from the patient's uterus.? At that point, gentle curettage was performed until a gritty texture was noted. The endometrial curettings were sent out to pathology.? The single tooth tenaculum was then removed from the patient's anterior lip of the cervix where excellent hemostasis was noted. Anesthesia: MAC Surgeon: Hung Thompson Estimated blood loss (mL): 5 Pathology: other (endometrial currettings) Condition: stable Disposition: PACU Urinary Catheter Management Urinary Catheter Management Straight: Cath placed during this visit: no
--- NOTE | 2025-02-06 09:46 | PC.NURSE ---
PINK TINGED URINE
== END 2025-02-06 09:35 | disposition home or self-care (01) ==
LOC: SURGOUT 06:12
PROVIDERS: Visit Provider Obstetrics & Gynecology
PROC: (CPT 952; principal; 2025-02-06 07:30)
DX: E28.2 Polycystic ovarian syndrome (principal); N97.0 Female infertility associated with anovulation; Z90.49 Acquired absence of other specified parts of digestive tract; N84.0 Polyp of corpus uteri
CPT/HCPCS: 58558; 36415; 82948; 84702; 88305

== ENCOUNTER 2025-05-13 14:51 | Outpatient (OUT) | payer MEDICAID, SELFPAY ==
--- OUTSIDE RECORDS SUMMARY | 2025-05-13 14:57 | XMS_ITS | Encounter Summary ---
Author Organization [facility] Address [address] [place] [address] Care Team Providers Care Beating Machine Operator Name Role Phone Virginia Oviedo MD Primary Care Provider [phone] Encounter Details DateTypeDepartmentCare Team (Latest Contact Info)Cuwtaioenrz91/09/2025bstract [facility] [address] [place] [address] Sera Cabezas, NOVELTY DIPPER [address] [place] [address] Social History Tobacco UseTypesPacks/DayYears UsedDateSmoking Tobacco: Never Assessed Estimated Date of TbjfhwcaOqojycyqSgw87/26/2026ased on Ultrasound, FHR: 175Sex and Gender InformationValueDate RecordedSex Assigned at BirthNot on fileLegal JxmZjptdc04/15/2023 7:28 PM EDTGender IdentityNot on fileSexual OrientationNot on filedocumented as of this encounter Plan of Treatment DateTypeDepartmentCare Team (Latest Contact Info)Bbmnizshhes33/27/2025 10:10 AM EDTRoutine [facility] [address] [facility] [place] [address] Hung Thompson DO [address] [facility] [address] [place], [place] [id number] documented as of this encounter Visit Diagnoses Not on filedocumented in this encounter Care Teams Team MemberRelationshipSpecialtyStart DateEnd Date Virginia Oviedo MD [address] [place] [address] PCP - GeneralFamily Medicine11/17/24documented as of this encounter
--- OUTSIDE RECORDS SUMMARY | 2025-05-13 14:57 | XMS_ITS | Clinical Summary ---
Author Organization [facility] tem Address [facility] [place] [address] Care Team Providers Care Directory Operator Name Role Phone VicenteDavidash MARTINEZ-APPEALS WRITER Primary Care Provider [phone] Allergies Active AllergyReactionsCriticalityNoted FhlnFysevnwcVysholfnijjld67/10/2021 Medications MedicationSigDispense QuantityRefillsLast FilledStart DateEnd DateStatus ondansetron ODT (ZOFRAN-ODT) 4 mg disintegrating tablet Dissolve 4 mg on tongue every 6 (six) hours as needed for nausea or vomiting. Active vit no.892-llcu-hmakw ( VITAMIN) 27 mg iron- 800 mcg tablet Take 1 tablet by mouth daily.Active Family History Medical HistoryRelationNameCommentsDiabetesFatherHypertensionFatherAneurysm Maternal GrandmotherbrainHypertensionMotherHeart diseaseSisterRelationNameStatus CommentsFatherMaternal GrandmotherMotherSister Social History Tobacco UseTypesPacks/DayYears UsedDateSmoking Tobacco: NeverChildcareAnswerDate FgatuxyoAccvsbcaeHruucmu55/09/2021EmploymentAnswerDate RecordedEmploymentUnknown 1Purpose - LifeAnswerDate RecordedPurpose and direction in lifeUnknown 1CommentsNoSex and Gender InformationValueDate RecordedSex Assigned at BirthNot on fileLegal VkmByagpe96/09/2021 2:55 PM ESTGender Identity Not on fileSexual OrientationNot on file Plan of Treatment Health MaintenanceDue DateLast DoneCommentsDepression Athdtaytq06/26/2009Tobacco Tsrcuzuxw26/26/2009dult BMI Spppqmmsu97/26/2015Pap Smear2018DTaP,Tdap and Td Vaccines (2 - Td or Tdap)5011/14/2014Influenza Ehzascd9203/23/2025 Medical Devices [place] [address] MemberSubscriberPlan / Payer (Effective 2019-Present)Name:Jose Maria Corona Relation to Subscriber:ChildName:DANYELLE CORONA Date of :1974 (Home) Address: [address] [place] [address] Payer ID:Not on file Type:Not on file Address: [place] [id number] Care Teams Team MemberRelationshipSpecialtyStart DateEnd Date Tg Vicente APRN-RONALD [address] [place] [address] PCP - GeneralNurse Practitioner11/16/20
--- OUTSIDE RECORDS SUMMARY | 2025-05-13 14:57 | XMS_ITS | Clinical Summary ---
Author Organization [facility] Address [address], [address] [place] [address] Care Team Providers Care Creel Cleaner Name Role Phone Virginia Oviedo MD Primary Care Provider [phone] Allergies Active AllergyReactionsCriticalityNoted DateCommentsDoxycyclineHivesMedium 08/25/2023 Medications MedicationSigDispense QuantityRefillsLast FilledStart DateEnd DateStatus pantoprazole (PROTONIX) 20 MG tablet Take 1 tablet by mouth every morning (before breakfast) 90 tablet ctive naproxen (NAPROSYN) 375 MG tablet Take 1 tablet 2 times a days with food for 5 days, then 1 tablet 2 times a day as needed for pain 40 tablet 09/19/2023ctive Active Problems ProblemNoted DateDiagnosed DdbiDvrwjyepqgwqi20/03/2024 Resolved Problems ProblemNoted DateDiagnosed DateResolved XbzrEdmxqbldwnudu73/05/202402/ Acute biliary pancreatitis without infection or uwwhbrbk45/ Vwshfbdjtdcb72/03/202402/ Social History Tobacco UseTypesPacks/DayYears UsedDateSmoking Tobacco: NeverSmokeless Tobacco: Never Tobacco Cessation:Counseling Given: Not Answered Alcohol UseStandard Drinks/WeekCommentsNever0 (1 standard drink = 0.6 oz pure alcohol)AUDIT-CAnswerDate RecordedQ1: How often do you have a drink containing alcohol?Never08/25/2023Q2: How many drinks containing alcohol do you have on a typical day when you are drinking?Patient does not drink08/25/2023Q3: How often do you have six or more drinks on one occasion?Never08/25/2023Interpersonal Safety Domain Source: IP Abuse ScreeningAnswerDate RecordedRead-Only, Retired: Physical ItbppLyqpyn49/28/2024Read-Only, Retired: Verbal IxuoyWyiyfq27/28/2024 Read-Only, Retired: Emotional bakhlGyijie55/28/2024Read-Only, Retired: Financial OflobTwiunp99/28/2024ead-Only, Retired: Sexual illqwLowvbe91/28/2024 CommentsNoSex and Gender InformationValueDate RecordedSex Assigned at BirthNot on fileLegal OkeJgslvb10/03/2024 3:23 AM ESTGender IdentityNot on fileSexual OrientationNot on file Last Filed Vital Signs Vital SignReadingTime TakenCommentsBlood Nhmnmryl960/69010/04/2023 9:11 AM EDT Kvwwf72474/14/2024 9:11 AM ZWBFeidkhureiu46.8 ??C (98.3 ??F)10/04/2023 9:11 AM EDTRespiratory Jdsq498009/19/2023 4:00 PM ESTOxygen Nbatbbeslj47%09/19/2023 4:00 PM ESTInhaled Oxygen Concentration--Fkhjrd79.3 kg (144 lb)10/04/2023 9:11 AM EDT Vrqanm423.7 cm (5' 8 )09/03/2023 1:21 PM ESTBody Mass Index21.902 1:21 PM EST Plan of Treatment Health MaintenanceDue DateLast DoneCommentsDepression Vfntrw1104/17/2009HIV screen 2012Hepatitis C dekinh8804/17/2015Pap smear2018DTaP/Tdap/Td vaccine (8 - Td or Tdap)5011/14/2014, 04/20/2008, 12/11/2001, Additional history existsFlu vaccine (#1)51COVID-19 Vaccine ( - season) 2025Hepatitis B nvpedqnKbxqmfmaf05/08/1998, 1997, 1997Hib bdspslkDrgcfciix46/27/1999, 1997, 1997, Additional history exists Polio fxexuucLpqasdipu18/22/2002, 08/18/1998, 1997, Additional history existsVaricella tqfrqzxBcdqocrkf03/29/2008, 08/18/1998HPV vaccineCompleted 10/29/2008, 06/25/2008, 04/20/2008Meningococcal (ACWY) vaccineCompleted 01/08/2014, 04/20/2008Hepatitis A vaccineAged OutNo longer eligible based on patient's age to complete this topicMeningococcal B vaccineAged OutNo longer eligible based on patient's age to complete this topicPneumococcal 0-49 years VaccineAged OutNo longer eligible based on patient's age to complete this topic Insurance Advance Directives * Full Code (Latest Code Status on File) Date ActivatedDate InactivatedComments08/25/2023 3:03 08/28/2023 6:07 PM Care Teams Team MemberRelationshipSpecialtyStart DateEnd Date Virginia Oviedo MD [address] [place] [address] PCP - GeneralFamily Medicine08/25/23
--- OUTSIDE RECORDS SUMMARY | 2025-05-13 14:57 | XMS_ITS | Clinical Summary ---
Author Organization [facility] Address [address] [place] [address] Care Team Providers Care Ice Platform Supervisor Name Role Phone Virginia Oviedo MD Primary Care Provider [phone] Allergies Active AllergyReactionsCriticalityNoted DateCommentsDoxycyclineHivesMedium 08/25/2023 Other Reaction(s): hives Ejmytvmghfus73/10/2021 Medications MedicationSigDispense QuantityRefillsLast FilledStart DateEnd DateStatus Vit-Fe Fumarate-FA ( VITAMIN PO) Take by mouth DailyActive ondansetron ODT (Zofran-ODT) 4 MG disintegrating tablet Indications:NauseaTake 1 tablet (4 mg) by mouth every 6 (six) hours if needed for nausea or vomiting 30 tablet tive aspirin 81 MG EC tablet Take 81 mg by mouth DailyActive docusate sodium (Colace) 250 MG capsule Take 250 mg by mouth DailyActive co-enzyme Q-10 30 MG capsule Take 30 mg by mouth Daily04/16/2025Discontinued dextromethorphan-guaiFENesin (Mucinex DM) 30-600 MG 12 hr tablet Take 1 tablet by mouth every 12 (twelve) hours Do not crush, chew, or split. 04/16/2025Discontinued metFORMIN XR (Glucophage-XR) 500 MG 24 hr tablet Indications:PCOS (polycystic ovarian syndrome),Anovulation,Insulin resistance Take 1 tablet (500 mg) by mouth in the evening. Take with meals Do not crush, chew, or split. 30 tablet 1107/28/678656/25/2025Discontinued Encounters DateTypeDepartmentCare KwxlXiqadvotzmf50/16/2025Patient Outreach [facility] [address] [place] [address] Sera Cabezas LPN 04/30/2025bstract [facility] [address] [place] [address] Sera Cabezas LPN 04/16/2025 1:30 PM EDTInitial [facility] [address] [place] [address] [place] [address] [place]: 94d04/16/2025 1:00 PM EDTAncillary Procedure [facility] [address] [place] [address] Missed menses; Positive urine test ([facility])04/13/2025Telephone [facility] [address] [place] [address] [place] [address] Hung Thompson DO 03/17/2025bstract [facility] [address] [place] [address] [place] [address] Hung Thompson, 03/09/2025Telephone [facility] [address] [place] [address] [place] [address] Felicita Pinto LPN 03/06/2025bstract [facility] [address] [place] [address] [place] [address] Hung Thompson DO 02/16/2025 2:20 PM EDTOffice Visit [facility] [address] [place] [address] Hung Thompson, DO PCOS (polycystic ovarian syndrome); Anovulation; Insulin jvmvawhbrs73/28/2025amboo flowsheet [facility] [address] [place] [address] Hung Thompson DO 02/13/2025Telephone [facility] [address] [place] [address] [place] [address] Licha Casanova MA from Last 3 Months Social History Tobacco UseTypesPacks/DayYears UsedDateSmoking Tobacco: Never Assessed Estimated Date of MyhfhptjEcvbgklvHxj60/26/2026ased on Ultrasound, FHR: 175Sex and Gender InformationValueDate RecordedSex Assigned at BirthNot on fileLegal MlkJflckc21/15/2023 7:28 PM EDTGender IdentityNot on fileSexual OrientationNot on file Last Filed Vital Signs Vital SignReadingTime TakenCommentsBlood Sdjgkuxc652/70004/16/2025 3:07 PM EDT Pulse--Temperature--Respiratory Rate--Oxygen Saturation--Inhaled Oxygen Concentration--Umqfpx62.5 kg (155 lb 8 oz)04/16/2025 3:07 PM TGRQrsxls403.2 cm (5' 7 )11/17/2022 12:00 PM EDTBody Mass Index24.35011/17/2022 12:00 PM EDT Plan of Treatment DateTypeDepartmentCare Team (Latest Contact Info)Erpmrwbjxiy02/27/2025 10:10 AM EDTRoutine [facility] [address] [place] [address] [place] [address] Hung Thompson, [address] [place], [place] [id number] Health MaintenanceDue DateLast DoneCommentsInfluenza Vaccine (#1)03/23/2025 04/20/2008, 04/24/2007 Procedures Procedure NamePriorityDate/TimeAssociated DiagnosisCommentsPOCT , URINE Gihrqem4104/16/2025 2:48 PM EDT Missed menses POCT URINALYSIS OTTWVYPPQgnnocq28/25/2025 2:47 PM EDT Missed menses US OB CGUYHKHXOEULTejpcok17/25/2025 1:36 PM EDT Missed menses Positive urine test ([facility]) from Last 3 Months Results * (ABNORMAL) POCT , urine manually resulted (04/16/2025 2:48 PM EDT) ComponentValueRef RangeTest MethodAnalysis TimePerformed AtPathologist SignaturePreg Test, UrPositiveNegativeSpecimen (Source)Anatomical Location / LateralityCollection Method / VolumeCollection TimeReceived TimeUrine 04/16/2025 2:48 PM EDT Narrative Authorizing ProviderResult TypeResult StatusCorey Jay DOPOINT OF CARE TEST ENTER/EDIT ORDERABLESFinal Result * (ABNORMAL) POCT urinalysis dipstick manually resulted (04/16/2025 2:47 PM EDT) ComponentValueRef RangeTest MethodAnalysis TimePerformed AtPathologist SignatureColor, UAYellowClarity, UAClearGlucose, UANegativeNegative - 2000(110) ++++ mg/dLBilirubin, UANegativeNegative - 4(70) +++ mg/dLKetones, UA NegativeNegative - 160(16) ++++ mg/dLSpec Grav, UA1.0151 - 1.03Blood, UA NegativeNegative - 50 Rajendra/mcLpH, UA6.05 - 9Protein, UAPositiveNegative - 2000(20) ++++ mg/dLComment:TraceUrobilinogen, UA0.20.2 - 12 mg/dLLeukocytes, UAPositiveNegative - 500+++ Laura/mcLComment:3+Nitrite, UANegativeNegative - PositiveSpecimen (Source)Anatomical Location / LateralityCollection Method / VolumeCollection TimeReceived SxqsAlddw07/25/2025 2:47 PM EDT Narrative Authorizing ProviderResult TypeResult StatusCorey Jay DOPOINT OF CARE TEST ENTER/EDIT ORDERABLESFinal Result * OB transvaginal (04/16/2025 1:36 PM EDT)Anatomical RegionLateralityModality BodyUltrasoundSpecimen (Source)Anatomical Location / LateralityCollection Method / VolumeCollection TimeReceived Time04/16/2025 2:37 PM EDT Impressions 04/16/2025 3:07 PM EDT Findings consistent with a live intrauterine gestation, current sonographic age of 9 weeks and 4 days resulting in an estimated date of delivery of November 15, 2025. TRANSCRIBED BY: ? ELECTRONICALLY SIGNED BY: Akil Orta MD Narrative 04/16/2025 3:07 PM EDT FINDINGS: A single intrauterine gestational sac is present. ??No subchorionic hemorrhage. ??A single pole is present. Normal heart rate at 175 beats per minute. ??Yolk sac also is seen. ?? Current sonographic age is 9 weeks and 4 days based on the crown-rump length measurement of 2.7 cm. ??Based on this age, current estimated date of delivery is November 15, 2025. ??No pelvic fluid or adnexal masspresent. ??Cervix is closed, 4.4 cm. Procedure Note Akil Orta MD - 04/16/2025 FINDINGS: A single intrauterine gestational sac is present. No subchorionichemorrhage. A single pole is present. Normal heart rate at175 beats per minute. Yolk sac also is seen. Current sonographic age is9 weeks and 4 days based on the crown-rump length measurement of 2.7 cm.Based on this age, current estimated date of delivery is November 15, 2025.No pelvic fluid or adnexal mass present. Cervix is closed, 4.4 cm. IMPRESSION: Findings consistent with a live intrauterine gestation, currentsonographic age of 9 weeks and 4 days resulting in an estimated date ofdelivery of November 15, 2025. TRANSCRIBED BY: ELECTRONICALLY SIGNED BY: Akil Orta MD Authorizing ProviderResult TypeResult StatusCorey Jay DOIMG OB US PROCEDURES Final Result from Last 3 Months Insurance Care Teams Team MemberRelationshipSpecialtyStart DateEnd Date Virginia Oviedo MD [address] [place] [address] [facility]11/17/24
--- OUTSIDE RECORDS SUMMARY | 2025-05-13 14:57 | XMS_ITS | Encounter Summary ---
Author Organization [facility] Address [address] [place] [address] Care Team Providers Care Computer Forensic Specialist Name Role Phone Virginia Oviedo MD Primary Care Provider [phone] Encounter Details DateTypeDepartmentCare Team (Latest Contact Info)Pddwnnkeosa71/16/2025Patient Outreach [facility] [address] [place] [address] Sera Cabezas LPN [address] [place] [address] Social History Tobacco UseTypesPacks/DayYears UsedDateSmoking Tobacco: Never Assessed Estimated Date of GrwpaylsCagrwiotOvn98/26/2026Based on Ultrasound, FHR: 175Sex and Gender InformationValueDate RecordedSex Assigned at BirthNot on fileLegal UqwIrnghp79/15/2023 7:28 PM EDTGender IdentityNot on fileSexual OrientationNot on filedocumented as of this encounter Progress Notes * Sera Cabezas LPN - 05/07/2025 10:01 AM EDT Initial outreach. Call to pt [place], GYPSYM. Teresa communication sent. documented in this encounter Plan of Treatment DateTypeDepartmentCare Team (Latest Contact Info)Sblflriadlh25/27/2025 10:10 AM EDTRoutine [facility] [address] [place] [address] [place] [address] Hung Thompson, [address] [place] [address] documented as of this encounter Visit Diagnoses Not on filedocumented in this encounter Care Teams Team MemberRelationshipSpecialtyStart DateEnd Date Virginia Oviedo MD [address] [place] [address] PCP - GeneralFamily Medicine11/17/24documented as of this encounter
--- OUTSIDE RECORDS SUMMARY | 2025-05-13 14:57 | XMS_ITS ---
Author Organization [facility] Address [address] [place] [address] Care Team Providers Care Charge Master Coordinator Name Role Phone Virginia Oviedo MD Primary Care Provider [phone] [facility] ([facility]) Status:Closed (Closed) Start date:04/29/2025 Enrollment date:05/07/2025 Enrollment reason:Identified by Health Plan End date:05/07/2025 Close reason:Unable to reach patient Continued Care and Services Coordination
[2025-05-13 15:52] LABS: Hematocrit 40.1 % (36.0-48.0); Hemoglobin 13.8 g/dL (12.0-16.0); Immature Granulocytes Abs Auto 0.12 10^3/uL (0.00-0.03); Immature Granulocytes Pct Auto 0.9 % (0.0-0.5); Lymphocytes Absolute Auto 2.4 10^3/uL (1.2-3.8); Mean Corpuscular HGB Conc 34.4 g/dL (29.9-35.2); Mean Corpuscular Hemoglobin 31.7 pg (26.7-34.0); Mean Corpuscular Volume 92.0 fL (81.0-99.0); Platelet Count 274 10^3/uL (150-450); Red Blood Count 4.36 10^6/uL (4.20-5.40); White Blood Count 13.0 10^3/uL (4.0-11.0)
[2025-05-13 16:23] LABS: Cannabinoid Screen Urine NEGATIVE (NEGATIVE); Methamphetamines Screen Urine NEGATIVE (NEGATIVE); Tricyclic Antidepressant Urine NEGATIVE (NEGATIVE)
[2025-05-14 06:08] LABS: Rubella Antibodies, IgG 1.91 index (Immune >0.99)
== END 2025-05-13 14:52 | disposition home or self-care (01) ==
LOC: LAB 14:52
PROVIDERS: Visit Provider Obstetrics & Gynecology
DX: Z34.01 Encounter for supervision of normal first pregnancy, first trimester (principal); N92.6 Irregular menstruation, unspecified
CPT/HCPCS: 36415; 80307; 83036; 85025; 86592; 86762; 86803; 86850; 86900; 86901; 87086; 87340; 87389

== ENCOUNTER 2025-06-06 12:03 | Outpatient (OUT) | payer MEDICAID, SELFPAY ==
--- OUTSIDE RECORDS SUMMARY | 2025-06-06 12:08 | XMS_ITS | Clinical Summary ---
Author Organization [facility] Address [address] [place] [address] Care Team Providers Care Head Resident Name Role Phone Virginia Oviedo MD Primary Care Provider [phone] Allergies Active AllergyReactionsCriticalityNoted DateCommentsDoxycyclineHivesMedium 08/25/2023 Other Reaction(s): hives Ysmibmsbnblc45/10/2021 Medications MedicationSigDispense QuantityRefillsLast FilledStart DateEnd DateStatus Vit-Fe Fumarate-FA ( VITAMIN PO) Take by mouth DailyActive aspirin 81 MG EC tablet Take 81 mg by mouth DailyActive docusate sodium (Colace) 250 MG capsule Take 250 mg by mouth DailyActive ondansetron ODT (Zofran-ODT) 4 MG disintegrating tablet Indications:NauseaTake 1 tablet (4 mg) by mouth every 6 (six) hours if needed for nausea or vomiting 30 tablet Expired Encounters DateTypeDepartmentCare PaisHgiwqecnhex99/27/2025 10:10 AM EDTRoutine [facility] [address] [place] [address] Hung Thompson DO Second trimester ([facility]); 14 weeks gestation of ([facility]); Diabetes mellitus milfbkifd17/27/2025Telephone [facility] [address] [place] [address] Catherine Canales MA 05/18/2025amboo flowsheet [facility] [address] [place] [address] Hung Thompson, DO 05/13/2025bstract [facility] [address] [place] [address] Hung Thompson, DO 05/13/2025linisync Result Encounter [facility] External Department Unsolicited Hung Thompson, DO 05/07/2025Patient Outreach [facility] [address] [place] [address] Sera Cabezas LPN 04/30/2025bstract [facility] [address] [place] [address] Sera Cabezas LPN 04/16/2025 1:30 PM EDTInitial [facility] [address] [place] [address] [place]: 04/16/2025 1:00 PM EDTAncillary Procedure [facility] [address] [place] [address] Missed menses; Positive urine test ([facility])04/13/2025Telephone [facility] [address] [place] [address] Hung Thompson, DO 03/17/2025bstract [facility] [address] [place] [address] Hung Thompson, DO 03/12/2025bstract [facility] [address] [place] [address] Hung Thompson, DO 03/12/2025bstract [facility] [address] [place] [address] Hung Thompson, DO 03/10/2025bstract [facility] [address] [place] [address] [place] [address] Hung Thompson DO 03/09/2025Telephone [facility] [address] [place] [address] [place] [address] Felicita Pinto LPN 03/06/2025bstract [facility] [address] [place] [address] [place] [address] Hung Thompson DO from Last 3 Months Social History Tobacco UseTypesPacks/DayYears UsedDateSmoking Tobacco: Never Assessed Estimated Date of TomoxicgYcdmkvkjEab88/26/2026ased on Ultrasound, FHR: 175Sex and Gender InformationValueDate RecordedSex Assigned at BirthNot on fileLegal PrbLlyiqd44/15/2023 7:28 PM EDTGender IdentityNot on fileSexual OrientationNot on file Last Filed Vital Signs Vital SignReadingTime TakenCommentsBlood Exqbjzdy696/7005/18/2025 10:52 AM EDT Pulse--Temperature--Respiratory Rate--Oxygen Saturation--Inhaled Oxygen Concentration--Iifmlp04.8 kg (158 lb 4 oz)05/18/2025 10:52 AM UWBDljdhj682.2 cm (5' 7 )11/17/2022 12:00 PM EDTBody Mass Index24.7911/17/2022 12:00 PM EDT Plan of Treatment DateTypeDepartmentCare Team (Latest Contact Info)Qodrqpldrrl83/24/2025 10:40 AM ESTRoutine [facility] [address] [place] [address] Sera Lau PA [address] [place], [place] [id number] Health MaintenanceDue DateLast DoneCommentsCOVID-19 Vaccine ( season) 2025Influenza Vaccine (#1), 04/24/2007Pneumococcal Vaccine: Pediatrics (0 to 5 Years) and At-Risk Patients (6 to 64 Years)Aged Out No longer eligible based on patient's age to complete this topic Procedures Procedure NamePriorityDate/TimeAssociated DiagnosisCommentsPOCT URINALYSIS UKMUXOCBDkqwczn94/27/2025 10:57 AM EDT 14 weeks gestation of ([facility] TB[facility] DRUG SCREEN RAPID (URINE)Xueemco4305/13/2025 3:25 PM EDT URINE CULTURE, AVMICSSIdizvmg10/22/2025 3:25 PM EDT HBSAG RSBGHSHqtxnsq03/22/2025 3:10 PM EDT RAPID PLASMA REAGIN, UUSLBNdcbeye75/22/2025 3:10 PM EDT HCV ANTIBODY RFX TO QUANT PCREsiaoad82/22/2025 3:10 PM EDT ALL RUBELLA IGG LASiryfwd08/22/2025 3:10 PM EDT HIV AB/P24 AG WITH GTNQFGUaxhslf35/22/2025 3:10 PM EDT ALL TYPE AND ZVITCJOyvegdc40/22/2025 3:10 PM EDT ALL CBC WITH AUTO PTZCQkoqipj14/22/2025 3:10 PM EDT MLR HEMOGLOBIN H6JVyixqhz57/22/2025 3:10 PM EDT POCT , IVIXCKxwtrrm49/25/2025 2:48 PM EDT Missed menses POCT URINALYSIS SJZMTJGTRrhrugg03/25/2025 2:47 PM EDT Missed menses US OB PDGPCDEOMLFOWfutdmz18/25/2025 1:36 PM EDT Missed menses Positive urine test ([facility]) from Last 3 Months Results * (ABNORMAL) POCT urinalysis dipstick manually resulted (05/18/2025 10:57 AM EDT) Only the most recent of2 resultswithin the time period is included. ComponentValueRef RangeTest MethodAnalysis TimePerformed AtPathologist Signature Color, UAYellowClarity, UAClearGlucose, UANegativeNegative - 2000(110) ++++ mg/dLBilirubin, UANegativeNegative - 4(70) +++ mg/dLKetones, UANegativeNegative - 160(16) ++++ mg/dLSpec Grav, UA1.0151 - 1.03Blood, UANegativeNegative - 50 Rajendra/mcLpH, UA8.55 - 9Protein, UAPositiveNegative - 2000(20) ++++ mg/dLComment:1+ Urobilinogen, UA0.20.2 - 12 mg/dLLeukocytes, UAPositiveNegative - 500+++ Laura/mcL Comment:3+Nitrite, UANegativeNegative - PositiveSpecimen (Source)Anatomical Location / LateralityCollection Method / VolumeCollection TimeReceived TimeUrine 05/18/2025 10:57 AM EDT Narrative Authorizing ProviderResult TypeResult StatusCorey Jay DOPOINT OF CARE TEST ENTER/EDIT ORDERABLESFinal Result * URINE CULTURE, ROUTINE (05/13/2025 3:25 PM EDT)ComponentValueRef RangeTest MethodAnalysis TimePerformed AtPathologist SignatureURINE CULTURE, ROUTINE ??Urine Culture, Routine TBHURINE CULTURE, ROUTINEMixed urogenital floraTBHURINE CULTURE, UHVTHDT58,000- 25,000 colony forming units per mLTBHURINE CULTURE, ROUTINEPerformed at: - [facility] CenterTBHURINE CULT[facility], [id number] [place], [place] [id number] URINE CULTURE, ROUTINELab Director: Barrington Reyes PhD, Phone: [phone] Specimen (Source)Anatomical Location / LateralityCollection Method / Volume Collection TimeReceived Time05/13/2025 3:25 PM EDT1 3:25 PM EDT Narrative [facility] - 05/16/2025 7:07 AM EDT Authorizing ProviderResult TypeResult StatusCorey Jay DOLAB BLOOD ORDERABLES Final ResultPerforming OrganizationAddressCity/State/ZIP CodePhone Number [facility] * TB[facility] DRUG SCREEN RAPID (URINE) (05/13/2025 3:25 PM EDT)ComponentValueRef Range Test MethodAnalysis TimePerformed AtPathologist SignatureCANNABINOID SCREEN URINENEGATIVENEGATIVETBHPHENCYCLIDINE SCREEN URINENEGATIVENEGATIVETBHCOCAINE SCREEN URINENEGATIVENEGATIVETBHMETHAMPHETAMINES SCREEN URINENEGATIVENEGATIVE TBHOPIATE SCREEN URINENEGATIVENEGATIVETBHAMPHETAMINE SCREEN URINENEGATIVE NEGATIVETBHBENZODIAZEPINES SCREEN URINENEGATIVENEGATIVETBHTRICYCLIC ANTIDEPRESSANT URINENEGATIVENEGATIVETBHMETHADONE SCREEN URINENEGATIVENEGATIVE TBHBARBITURATES SCREEN URINENEGATIVENEGATIVETBHOXYCODONE SCREEN URINENEGATIVE NEGATIVETBHBUPRENORPHINE SCREEN URINENEGATIVENEGATIVETBHComment: DRUG CLASS TEST SYSTEM CUT-OFF CONCENTRATIONS ARE FOLLOWS: AMP (Amphetamine): 500 ng/mL BAR (Barbiturates): 200 ng/mL BZO (Benzodiazepines): 150 ng/mL BUP (Buprenorphine): 10 ng/mL LIZANDRO (Cocaine): 150 ng/mL mAMP (Methamphetamine): 500 ng/mL MTD (Methadone): 200 ng/mL OPI (Opiates): 100 ng/mL OXY (Oxycodone): 100 ng/mL PCP (Phencyclidine): 25 ng/mL THC (Cannabinoids): 50 ng/mL TCA (Trycyclic Antidepressants): 300 ng/mL Specimen (Source)Anatomical Location / LateralityCollection Method / Volume Collection TimeReceived Time05/13/2025 3:25 PM EDT1 3:25 PM EDT Narrative [facility] - 05/13/2025 4:23 PM EDT Authorizing ProviderResult TypeResult StatusCorey Jay DOCLINISYNCFinal Result Performing OrganizationAddressCity/State/ZIP CodePhone Number [facility] * HBSAG SCREEN (05/13/2025 3:10 PM EDT)ComponentValueRef RangeTest Method Analysis TimePerformed AtPathologist SignatureHBSAG SCREENTNP.TBHComment: Please refer to the following specimen for additional lab results. Please refer to [phone] for results. Specimen (Source)Anatomical Location / LateralityCollection Method / Volume Collection TimeReceived Time05/13/2025 3:10 PM EDT1 3:14 PM EDT Narrative [facility] - 05/14/2025 5:08 PM EDT Authorizing ProviderResult TypeResult StatusCorey Jay DOLAB BLOOD ORDERABLES Final ResultPerforming OrganizationAddressty/State/ZIP CodePhone Number [facility] * RAPID PLASMA REAGIN, QUANT (05/13/2025 3:10 PM EDT)ComponentValueRef RangeTest MethodAnalysis TimePerformed AtPathologist SignatureRAPID PLASMA REAGIN, QUANT TNP. titerTBHComment: Please refer to the following specimen for additional lab results. Please refer to [phone] for results. Please Note: This test does not meet current guidelines for screening and diagnosis of syphilis. This test is intended for following treatment response in patients being treated for syphilis infection. To screen for syphilis infection, a reflex cascade that includes both RPR and a treponema-specific assay should be utilized, such as Treponema pallidum (Syphilis) Screening [place] (371849) or Rapid Plasma Reagin (RPR) Test With Reflex to Quantitative RPR and Confirmatory Treponema pallidum Antibodies (777438). Specimen (Source)Anatomical Location / LateralityCollection Method / Volume Collection TimeReceived Time05/13/2025 3:10 PM EDT1 3:14 PM EDT Narrative [facility] - 05/14/2025 5:08 PM EDT Authorizing ProviderResult TypeResult StatusCorey Jay DOLAB BLOOD ORDERABLES Final ResultPerforming OrganizationAddressty/State/ZIP CodePhone Number [facility] * HIV AB/P24 AG WITH REFLEX (05/13/2025 3:10 PM EDT)ComponentValueRef RangeTest MethodAnalysis TimePerformed AtPathologist SignatureHIV AB/P24 AG SCREENNon ReactiveNon ReactiveTBHComment: HIV-1/HIV-2 antibodies and HIV-1 p24 antigen were NOT detected. There is no laboratory evidence of HIV infection. HIV Negative Performed at: ?? - [facility] [address] ??[id number] Pharmacy Technician Infusion: Barrington Reyes PhD, Phone: ??[phone] Specimen (Source)Anatomical Location / LateralityCollection Method / Volume Collection TimeReceived Time05/13/2025 3:10 PM EDT1 3:14 PM EDT Narrative [facility] - 05/14/2025 5:08 AM EDT Authorizing ProviderResult TypeResult StatusCorey Jay DOLAB BLOOD ORDERABLES Final ResultPerforming OrganizationAddressCity/State/ZIP CodePhone Number [facility] * HCV ANTIBODY RFX TO QUANT PCR (05/13/2025 3:10 PM EDT)ComponentValueRef Range Test MethodAnalysis TimePerformed AtPathologist SignatureHCV ABNon ReactiveNon ReactiveTBHINTERPRETATION:Comment.TBHComment: Not infected with HCV unless early or acute infection is suspected (which may be delayed in an immunocompromised individual), or other evidence exists to indicate HCV infection. Specimen (Source)Anatomical Location / LateralityCollection Method / Volume Collection TimeReceived Time05/13/2025 3:10 PM EDT1 3:14 PM EDT Narrative [facility] - 05/14/2025 6:08 AM EDT Authorizing ProviderResult TypeResult StatusCorey Jay DOLAB BLOOD ORDERABLES Final ResultPerforming OrganizationAddressty/State/ZIP CodePhone Number [facility] * MLR HEMOGLOBIN A1C (05/13/2025 3:10 PM EDT)ComponentValueRef RangeTest Method Analysis TimePerformed AtPathologist SignatureGLYCOHEMOGLOBIN A1C5.24.5 - 6.2 %TBHComment: ADA RECOMMENDED LIMIT 4.0 - 6.0 ADA THERAPEUTIC TARGET < 7.0 ACTION SUGGESTED > 7.0 ESTIMATED AVERAGE ADWQGVP436ui/dLTBHSpecimen (Source)Anatomical Location / LateralityCollection Method / VolumeCollection TimeReceived Time05/13/2025 3:10 PM EDT1 3:14 PM EDT Narrative [facility] - 05/13/2025 3:31 PM EDT Authorizing ProviderResult TypeResult StatusCorey Jay DOCLINISYNCFinal Result Performing OrganizationAddressCity/State/ZIP CodePhone Number [facility] * ALL TYPE AND SCREEN (05/13/2025 3:10 PM EDT)ComponentValueRef RangeTest Method Analysis TimePerformed AtPathologist SignatureBLOOD TYPEA PositiveTBHANTIBODY SCREENNEGATIVETBHSpecimen (Source)Anatomical Location / LateralityCollection Method / VolumeCollection TimeReceived Time05/13/2025 3:10 PM EDT1 3:14 PM EDT Narrative [facility] - 05/13/2025 4:47 PM EDT [facility] , Authorizing ProviderResult TypeResult StatusCorey Jay DOCLINISYNCFinal Result Performing OrganizationAddressCity/State/ZIP CodePhone Number [facility] * ALL RUBELLA IGG AB (05/13/2025 3:10 PM EDT)ComponentValueRef RangeTest Method Analysis TimePerformed AtPathologist SignatureRUBELLA ANTIBODIES, IGG1.91 Immune >0.99 indexTBHComment: Non-immune <0.90 ?Equivocal ??0.90 - 0.99 Immune >0.99 Performed at: ?? - [facility] [address] ??[id number] Pharmacy Technician Infusion: Barrington Reyes PhD, Phone: ??[phone] Specimen (Source)Anatomical Location / LateralityCollection Method / Volume Collection TimeReceived Time05/13/2025 3:10 PM EDT1 3:14 PM EDT Narrative [facility] - 05/14/2025 6:08 AM EDT Authorizing ProviderResult TypeResult StatusCorey Jay DOCLINISYNCFinal Result Performing OrganizationAddressCity/State/ZIP CodePhone Number [facility] * (ABNORMAL) ALL CBC WITH AUTO DIFF (05/13/2025 3:10 PM EDT)ComponentValueRef RangeTest MethodAnalysis TimePerformed AtPathologist SignatureTBH WBC13.0(H) 4.0 - 11.0 10 3/uLTBHTBH RBC4.364.20 - 5.40 10 6/uLTBHTBH HGB13.812.0 - 16.0 g/dLTBHTBH HCT40.136.0 - 48.0 %TBHTBH MCV92.081.0 - 99.0 fLTBHTB MCH31.726.7 - 34.0 pgTBHTBH MCHC34.429.9 - 35.2 g/dLTBHTBH RDW11.911.0 - 15.0 %TBHTBH PLT 772560 - 450 10 3/uLTBHTBH MPV11.09.5 - 13.5 fLTBHNEUTROPHILS PERCENT AUTO74.9 43.0 - 75.0 %TBHLYMPHOCYTES PERCENT AUTO18.5(L)20.5 - 60.0 %TBHMONOCYTES PERCENT AUTO4.71.7 - 12.0 %TBHTBH EO %0.5(L)0.9 - 7.0 %TBHBASOPHILS PERCENT AUTO0.50.2 - 2.0 %TBHIMMATURE GRANULOCYTES PCT AUTO0.9(H)0.0 - 0.5 %TBH NEUTROPHILS ABSOLUTE AUTO9.8(H)1.4 - 6.5 10 3/uLTBHLYMPHOCYTES ABSOLUTE AUTO 2.41.2 - 3.8 10 3/uLTBHMONOCYTES ABSOLUTE AUTO0.60.3 - 0.8 10 3/uLTBHTBH EO # 0.10.0 - 0.7 10 3/uLTBHBASOPHILS ABSOLUTE AUTO0.10.0 - 0.1 10 3/uLTBHIMMATURE GRANULOCYTES ABS AUTO0.12(H)0.00 - 0.03 10 3/uLTBHSpecimen (Source)Anatomical Location / LateralityCollection Method / VolumeCollection TimeReceived Time 05/13/2025 3:10 PM EDT1 3:14 PM EDT Narrative [facility] - 05/13/2025 3:54 PM EDT Authorizing ProviderResult TypeResult StatusCorey Jay DOCLINISYNCFinal Result Performing OrganizationAddressCity/State/ZIP CodePhone Number [facility] * (ABNORMAL) POCT , urine manually resulted (04/16/2025 2:48 PM EDT) ComponentValueRef RangeTest MethodAnalysis TimePerformed AtPathologist SignaturePreg Test, UrPositiveNegativeSpecimen (Source)Anatomical Location / LateralityCollection Method / VolumeCollection TimeReceived TimeUrine 04/16/2025 2:48 PM EDT Narrative Authorizing ProviderResult TypeResult StatusCorey Jay DOPOINT OF CARE TEST ENTER/EDIT ORDERABLESFinal Result * US OB transvaginal (04/16/2025 1:36 PM EDT)Anatomical RegionLateralityModality [...] Orta MD Authorizing ProviderResult TypeResult StatusCorey Jay SOTMOAYOR OB US PROCEDURES Final Result from Last 3 Months Insurance Care Teams Team MemberRelationshipSpecialtyStart DateEnd Date Virginia Oviedo MD [address] [place] [address] [facility]11/17/24
--- OUTSIDE RECORDS SUMMARY | 2025-06-06 12:08 | XMS_ITS | Clinical Summary ---
Author Organization [facility] Address [address], [address] [place] [address] Care Team Providers Care Tar Boiler Name Role Phone Virginai Oviedo MD Primary Care Provider [phone] Allergies Active AllergyReactionsCriticalityNoted DateCommentsDoxycyclineHivesMedium 08/25/2023 Medications MedicationSigDispense QuantityRefillsLast FilledStart DateEnd DateStatus pantoprazole (PROTONIX) 20 MG tablet Take 1 tablet by mouth every morning (before breakfast) 90 tablet ctive naproxen (NAPROSYN) 375 MG tablet Take 1 tablet 2 times a days with food for 5 days, then 1 tablet 2 times a day as needed for pain 40 tablet 09/19/2023ctive Active Problems ProblemNoted DateDiagnosed TrdrUzkbcowbwuapl38/03/2024 Resolved Problems ProblemNoted DateDiagnosed DateResolved TtmrKhgjoziufmytc62/05/202402/ Acute biliary pancreatitis without infection or ythtyuxe17/ Oblarzwvlxuk04/03/202402/ Social History Tobacco UseTypesPacks/DayYears UsedDateSmoking Tobacco: NeverSmokeless [...] Source: IP Abuse ScreeningAnswerDate RecordedRead-Only, Retired: Physical JbdavYffmhz98/28/2024Read-Only, Retired: Verbal YarumIcniwg13/28/2024 Read-Only, Retired: Emotional ynhrbKxpudz36/28/2024Read-Only, Retired: Financial ZagfcUrfsow82/28/2024ead-Only, Retired: Sexual eckpoPjapxx32/28/2024 CommentsNoSex and Gender InformationValueDate RecordedSex Assigned at BirthNot on fileLegal BnbBzrcym08/03/2024 3:23 AM ESTGender IdentityNot on fileSexual OrientationNot on file Last Filed Vital Signs Vital SignReadingTime TakenCommentsBlood Ljvnihes634/69010/04/2023 9:11 AM EDT Xwnpk85279/14/2024 9:11 AM HPWJxymaqwcrbm53.8 ??C (98.3 ??F)10/04/2023 9:11 AM EDTRespiratory Mcfe472309/19/2023 4:00 PM ESTOxygen Pehtkcyvhz05%09/19/2023 4:00 PM ESTInhaled Oxygen Concentration--Hdntmg39.3 kg (144 lb)10/04/2023 9:11 AM EDT Fixuym438.7 cm (5' 8 )09/03/2023 1:21 PM ESTBody Mass Index21.902 1:21 PM EST Plan of Treatment Health MaintenanceDue DateLast DoneCommentsDepression Yraksr5204/17/2009HIV screen 2012Hepatitis C pqjxgx6204/17/2015Pap smear2018DTaP/Tdap/Td vaccine (8 - Td or Tdap)5011/14/2014, 04/20/2008, 12/11/2001, Additional history existsFlu vaccine (#1)51COVID-19 Vaccine ( - season) 2025Hepatitis B umglhypDrzhpufwf20/08/1998, 1997, 1997Hib rsuwejcShpycncrz81/27/1999, 1997, 1997, Additional history exists Polio ejwtisrIcwtovfvn52/22/2002, 08/18/1998, 1997, Additional history existsVaricella nwdvrksKsjohiani49/29/2008, 08/18/1998HPV vaccineCompleted 10/29/2008, 06/25/2008, 04/20/2008Meningococcal (ACWY) vaccineCompleted [...] Date Virginia Oviedo MD [address] [place] [address] PCP - GeneralFamily Medicine08/25/23
--- OUTSIDE RECORDS SUMMARY | 2025-06-06 12:08 | XMS_ITS | Clinical Summary ---
Author Organization [facility] tem Address [id number] [address] [place] [address] Care Team Providers Care Green Building Engineer Name Role Phone David Vicenteash MARTINEZ-RUBBER [employer]ESS HAND Primary Care Provider [phone] Allergies Active AllergyReactionsCriticalityNoted XndkPmeybkvmOmavkcsynhmyo26/10/2021 Medications MedicationSigDispense QuantityRefillsLast FilledStart DateEnd DateStatus ondansetron ODT (ZOFRAN-ODT) 4 mg disintegrating tablet Dissolve 4 mg on tongue every 6 (six) hours as needed for nausea or vomiting. Active vit no.660-fstj-stltx ( VITAMIN) 27 mg iron- 800 mcg tablet Take 1 tablet by mouth daily.Active Family History Medical HistoryRelationNameCommentsDiabetesFatherHypertensionFatherAneurysm Maternal GrandmotherbrainHypertensionMotherHeart diseaseSisterRelationNameStatus CommentsFatherMaternal GrandmotherMotherSister Social History Tobacco UseTypesPacks/DayYears UsedDateSmoking Tobacco: NeverChildcareAnswerDate LdmqxkuoEjfitcweoEykrtng90/09/2021EmploymentAnswerDate RecordedEmploymentUnknown 1Purpose - LifeAnswerDate RecordedPurpose and direction in lifeUnknown 1CommentsNoSex and Gender InformationValueDate RecordedSex Assigned at BirthNot on fileLegal VpaPkjbds96/09/2021 2:55 PM ESTGender Identity Not on fileSexual OrientationNot on file Plan of Treatment Health MaintenanceDue DateLast DoneCommentsDepression Ptfhntskj51/26/2009Tobacco Hxpauhwem91/26/2009dult BMI Aqoyglmon72/26/2015Pap Smear2018DTaP,Tdap and Td Vaccines (2 - Td or Tdap)5011/14/2014Influenza Zxwvivn9603/23/2025 Medical Devices [place] [address] MemberSubscriberPlan / Payer (Effective 2019-Present)Name:Jose Maria Corona Relation to Subscriber:ChildName:DANYELLE CORONA Date of :1974 (Home) Address: [address] [place] [address] Payer ID:Not on file Type:Not on file Address: [place] [id number] Care Teams Team MemberRelationshipSpecialtyStart DateEnd Date Tg Vicente APRN-RONALD [address] [place] [address] PCP - GeneralNurse Practitioner11/16/20
[2025-06-06 13:43] LABS: Glucose 1 Hour 124 mg/dL (<130)
== END 2025-06-06 12:04 | disposition home or self-care (01) ==
LOC: LAB 12:04
PROVIDERS: Visit Provider Obstetrics & Gynecology
DX: Z13.1 Encounter for screening for diabetes mellitus (principal)
CPT/HCPCS: 36415; 82950

== ENCOUNTER 2025-07-06 21:35 | Outpatient (OUT) | payer MEDICAID, SELFPAY ==
--- OUTSIDE RECORDS SUMMARY | 2025-06-30 09:00 | XMS_ITS | Encounter Summary ---
Author Organization [facility] Address [address] [place] [address] Care Team Providers Care Swatch Folder Name Role Phone Virgniia Oviedo MD Primary Care Provider [phone] Encounter Details DateTypeDepartmentCare Team (Latest Contact Info)Lirszsnxwcd04/09/2025 9:00 AM ESTAncillary Procedure [facility] [address] [place] [address] Screening, , for anatomic survey ([facility]) Social History Tobacco UseTypesPacks/DayYears UsedDateSmoking Tobacco: Never Assessed Estimated Date of TnnozuxtSesuzvxoMrl69/26/2026Based on Ultrasound, FHR: 175Sex and Gender InformationValueDate RecordedSex Assigned at BirthNot on fileLegal VwuMgpcni28/15/2023 7:28 PM EDTGender IdentityNot on fileSexual OrientationNot on filedocumented as of this encounter Plan of Treatment DateTypeDepartmentCare Team (Latest Contact Info)Wkslcttlkck68/23/2025 9:50 AM ESTRoutine [facility] [address] [place] [address] Hung Thompson DO [address] [place], [place] [address] NameTypePriorityAssociated DiagnosesDate/TimeUS OB 14+ weeks anatomy scanImaging Routine Screening, , for anatomic survey ([facility]) 06/30/2025 10:09 AM ESTdocumented as of this encounter Visit Diagnoses Diagnosis Screening, , for anatomic survey ([facility]) Encounter for anatomic survey documented in this encounter Care Teams Team MemberRelationshipSpecialtyStart DateEnd Date Virginia Oviedo MD [address] [place] [address] PCP - GeneralFamily Medicine11/17/24documented as of this encounter
--- OUTSIDE RECORDS SUMMARY | 2025-07-06 21:40 | XMS_ITS | Clinical Summary ---
Author Organization [facility] Address [address] [place] [address] Care Team Providers Care Wire Puller Name Role Phone Virginia Oviedo MD Primary Care Provider [phone] Allergies Active AllergyReactionsCriticalityNoted DateCommentsDoxycyclineHivesMedium 08/25/2023 Other Reaction(s): hives Gyheqddhgjps17/10/2021 Medications MedicationSigDispense QuantityRefillsLast FilledStart DateEnd DateStatus Vit-Fe Fumarate-FA ( VITAMIN PO) Take by mouth DailyActive aspirin 81 MG EC tablet Take 81 mg by mouth DailyActive docusate sodium (Colace) 250 MG capsule Take 250 mg by mouth DailyActive Encounters DateTypeDepartmentCare TkxtCttmioppwkp94/09/2025 9:00 [place] [address] Screening, , for anatomic survey ([facility])06/15/2025 10:40 [place] [address] Sera Lau PA Diabetes mellitus screening; Second trimester ([facility]); 18 weeks gestation of ([facility]); STD exposure; Well woman exam with routine gynecological exam; Screening, , for anatomic survey ([facility]); Missed menses; , unspecified gestational age ([facility])06/15/2025[place] [address] Sera Lau PA 5Clinisync Result Encounter [facility] Unsolicited Hung Thompson, DO 05/18/2025 10:10 AM EDTRoutine [facility] [address] [place] [phone] Hung Thompson, DO Second trimester ([facility]); 14 weeks gestation of ([facility]); Diabetes mellitus atbiqspfg34/27/2025Telephone [facility] [address] [place] [address] Catherine Canales MA 05/18/2025amboo flowsheet [facility] [address] [place] [address] Hung Thompson, DO 05/13/2025bstract [facility] [address] [place] [address] Hung Thompson, 5Clinisync Result Encounter [facility] External Department Unsolicited Hung Thompson, 05/07/2025Patient Outreach [facility] [address] [place] [address] Sera Cabezas LPN 04/30/2025bstract [facility] [address] [place] [address] Sera Cabezas LPN 04/16/2025 1:30 PM EDTInitial [facility] [address] [place] [address] GA: 9w4d04/16/2025 1:00 PM EDTAncillary Procedure [facility] [address] [place] [address] Missed menses; Positive urine test ([facility])04/13/2025Telephone [facility] [address] [place] [address] Hung Thompson DO from Last 3 Months Social History Tobacco UseTypesPacks/DayYears UsedDateSmoking Tobacco: Never Assessed Estimated Date of CwifghqwWowdmwpjBxb46/26/2026ased on Ultrasound, FHR: 175Sex and Gender InformationValueDate RecordedSex Assigned at BirthNot on fileLegal OuiHazwwu46/15/2023 7:28 PM EDTGender IdentityNot on fileSexual OrientationNot on file Last Filed Vital Signs Vital SignReadingTime TakenCommentsBlood Qrraaoql125/6406/15/2025 11:08 AM EST Pulse--Temperature--Respiratory Rate--Oxygen Saturation--Inhaled Oxygen Concentration--Xwljqi97 kg (163 lb 4 oz)06/15/2025 11:08 AM TQFArienw581.2 cm (5' 7 )11/17/2022 12:00 PM EDTBody Mass Index25.57011/17/2022 12:00 PM EDT Plan of Treatment DateTypeDepartmentCare Team (Latest Contact Info)Utymcllyjnc04/23/2025 9:50 AM ESTRoutine [facility] [address] [place] [address] [place] [address] Hung Thompson, [address] [place] [address] Health MaintenanceDue DateLast DoneCommentsCOVID-19 Vaccine ( season) 2025Influenza Vaccine (#1)/, 04/24/2007Pneumococcal Vaccine: Pediatrics (0 to 5 Years) and At-Risk Patients (6 to 64 Years)Aged Out No longer eligible based on patient's age to complete this topic Procedures Procedure NamePriorityDate/TimeAssociated DiagnosisCommentsPOCT URINALYSIS AAHJLQWSWmjxfan06/24/2025 11:21 AM EST 18 weeks gestation of ([facility]) GLUCOSE 1 NAFKJpuzdan70/15/2025 1:02 PM EST POCT URINALYSIS AHVSODNFYluzxme46/27/2025 10:57 AM EDT 14 weeks gestation of ([facility]) TBH DRUG SCREEN RAPID (URINE)Voduuia9805/13/2025 3:25 PM EDT URINE CULTURE, DXJFADRJjxcwag91/22/2025 3:25 PM EDT HBSAG OBLLOQAfpmzeq31/22/2025 3:10 PM EDT RAPID PLASMA REAGIN, FHDPCHmkquek72/22/2025 3:10 PM EDT HCV ANTIBODY RFX TO QUANT IUMVmuober31/22/2025 3:10 PM EDT ALL RUBELLA IGG ZBPcuorrj61/22/2025 3:10 PM EDT HIV AB/P24 AG WITH TUGISWTcpckut66/22/2025 3:10 PM EDT ALL TYPE AND PZANKQQjrilyb36/22/2025 3:10 PM EDT ALL CBC WITH AUTO BYTNHjzsenh81/22/2025 3:10 PM EDT MLR HEMOGLOBIN F8GDfzcttp56/22/2025 3:10 PM EDT POCT , BRGYARugqmfe19/25/2025 2:48 PM EDT Missed menses POCT URINALYSIS BLULOFPBLofppsn49/25/2025 2:47 PM EDT Missed menses US OB DUCGYPSUUWWLHszywho74/25/2025 1:36 PM EDT Missed menses Positive urine test ([facility]) from Last 3 Months Results * POCT urinalysis dipstick manually resulted (06/15/2025 11:21 AM EST) Only the most recent of3 resultswithin the time period is included. ComponentValueRef RangeTest MethodAnalysis TimePerformed AtPathologist Signature Color, UAYellowClarity, UAClearGlucose, UANegativeNegative - 2000(110) ++++ mg/dLBilirubin, UANegativeNegative - 4(70) +++ mg/dLKetones, UANegativeNegative - 160(16) ++++ mg/dLSpec Grav, UA1.0151 - 1.03Blood, UANegativeNegative - 50 Rajendra/mcLpH, UA8.05 - 9Protein, UANegativeNegative - 2000(20) ++++ mg/dL Urobilinogen, UA0.20.2 - 12 mg/dLLeukocytes, UANegativeNegative - 500+++ Laura/mcL Nitrite, UANegativeNegative - PositiveSpecimen (Source)Anatomical Location / LateralityCollection Method / VolumeCollection TimeReceived XmwvMkgsl47/24/2025 11:21 AM EST Narrative Authorizing ProviderResult TypeResult StatusAmy [facility] TEST ENTER/EDIT ORDERABLESFinal Result * GLUCOSE 1 HOUR (06/06/2025 1:02 PM EST)ComponentValueRef RangeTest Method Analysis TimePerformed AtPathologist SignatureGLUCOSE 1 HFHI535<130 mg/dLTBH Specimen (Source)Anatomical Location / LateralityCollection Method / Volume Collection TimeReceived Time06/06/2025 1:02 PM EST06/06/2025 1:07 PM EST Narrative [facility] - 06/06/2025 1:49 PM EST Authorizing ProviderResult TypeResult StatusCorey Jay DOLAB BLOOD ORDERABLES Final ResultPerforming OrganizationAddressCity/State/ZIP CodePhone Number [facility] * URINE CULTURE, ROUTINE (05/13/2025 3:25 PM EDT)ComponentValueRef RangeTest MethodAnalysis TimePerformed AtPathologist SignatureURINE CULTURE, ROUTINE ??Urine Culture, Routine TBHURINE CULTURE, ROUTINEMixed urogenital floraTBHURINE CULTURE, SHQHDFM83,000- 25,000 colony forming units per mLTBHURINE CULTURE, ROUTINEPerformed at: CB - [facility] CanyonTBHURINE CULTURE, [id number] [place], [place] [id number] URINE CULTURE, ROUTINELab Director: Barrington Reyes PhD, Phone: [phone] Specimen (Source)Anatomical Location / LateralityCollection Method / Volume Collection TimeReceived Time05/13/2025 3:25 PM EDT1 3:25 PM EDT Narrative [facility] - 05/16/2025 7:07 AM EDT Authorizing ProviderResult TypeResult StatusCorey Jay DOLAB BLOOD ORDERABLES Final ResultPerforming OrganizationAddressCity/State/ZIP CodePhone Number [facility] * [facility] DRUG SCREEN RAPID (URINE) (05/13/2025 3:25 PM [...] 3:25 PM EDT1 3:25 PM EDT Narrative [facility] - 05/13/2025 4:23 PM EDT Authorizing ProviderResult TypeResult StatusCorey Jay DOCLINISYNCFinal Result Performing OrganizationAddressCity/State/ZIP CodePhone Number [facility] * HBSAG SCREEN (05/13/2025 3:10 PM EDT)ComponentValueRef RangeTest Method Analysis TimePerformed AtPathologist SignatureHBSAG SCREENTNP.TBHComment: Please refer to the following specimen for additional lab results. Please refer to [phone] for results. Specimen (Source)Anatomical Location / LateralityCollection Method / Volume Collection TimeReceived Time05/13/2025 3:10 PM EDT1 3:14 PM EDT Narrative [facility] - 05/14/2025 5:08 PM EDT Authorizing ProviderResult TypeResult StatusCorey Jay DOLAB BLOOD ORDERABLES Final ResultPerforming OrganizationAddressCity/State/ZIP CodePhone Number [facility] * RAPID PLASMA REAGIN, QUANT (05/13/2025 3:10 PM EDT)ComponentValueRef RangeTest MethodAnalysis TimePerformed AtPathologist SignatureRAPID PLASMA REAGIN, QUANT TNP. titerTBHComment: Please refer to the following specimen for additional lab results. Please refer to [phone] for results. Please Note: This test does not meet current guidelines for screening and diagnosis of syphilis. This test is intended for following treatment response in patients being treated for syphilis infection. To screen for syphilis infection, a reflex cascade that includes both RPR and a treponema-specific assay should be utilized, such as Treponema pallidum (Syphilis) Screening [place] (370873) or Rapid Plasma Reagin (RPR) Test With Reflex to Quantitative RPR and Confirmatory Treponema pallidum Antibodies (813058). Specimen (Source)Anatomical Location / LateralityCollection Method / Volume Collection TimeReceived Time05/13/2025 3:10 PM EDT1 3:14 PM EDT Narrative [facility] - 05/14/2025 5:08 PM EDT Authorizing ProviderResult TypeResult StatusCorey Jay DOLAB BLOOD ORDERABLES Final ResultPerforming OrganizationAddThe [facility] Foundationty/State/ZIP CodePhone Number [facility] * HIV AB/P24 AG WITH REFLEX (05/13/2025 3:10 PM EDT)ComponentValueRef RangeTest MethodAnalysis TimePerformed AtPathologist SignatureHIV AB/P24 AG SCREENNon ReactiveNon ReactiveTBHComment: HIV-1/HIV-2 antibodies and HIV-1 p24 antigen were NOT detected. There is no laboratory evidence of HIV infection. HIV Negative Performed at: ?? - [facility] [address] ??[id number] Scrap Cutter: Barrington Reyes PhD, Phone: ??[phone] Specimen (Source)Anatomical Location / LateralityCollection Method / Volume Collection TimeReceived Time05/13/2025 3:10 PM EDT1 3:14 PM EDT Narrative [facility] - 05/14/2025 5:08 AM EDT Authorizing ProviderResult TypeResult StatusCorey Jay DOLAB BLOOD ORDERABLES Final ResultPerforming OrganizationAddThe [facility] Foundationty/State/ZIP CodePhone Number [facility] [place] * HCV ANTIBODY RFX TO QUANT PCR [...] BLOOD ORDERABLES Final ResultPerforming OrganizationAddressty/State/ZIP CodePhone Number [facility] [place] * MLR HEMOGLOBIN A1C (05/13/2025 3:10 PM EDT)ComponentValueRef RangeTest Method Analysis TimePerformed AtPathologist SignatureGLYCOHEMOGLOBIN A1C5.24.5 - 6.2 %TBHComment: ADA RECOMMENDED LIMIT 4.0 - 6.0 ADA THERAPEUTIC TARGET < 7.0 ACTION SUGGESTED > 7.0 ESTIMATED AVERAGE VWQKOJT837yj/dLTBHSpecimen (Source)Anatomical Location / LateralityCollection Method / VolumeCollection TimeReceived Time05/13/2025 3:10 PM EDT1 3:14 PM EDT Narrative [facility] - 05/13/2025 3:31 PM EDT Authorizing ProviderResult TypeResult StatusCorey Jay DOCLINISYNCFinal Result Performing OrganizationAddressty/State/ZIP CodePhone Number [facility] * ALL TYPE AND SCREEN (05/13/2025 3:10 PM EDT)ComponentValueRef RangeTest Method Analysis TimePerformed AtPathologist SignatureBLOOD TYPEA PositiveTBHANTIBODY SCREENNEGATIVETBHSpecimen (Source)Anatomical Location / LateralityCollection Method / VolumeCollection TimeReceived Time05/13/2025 3:10 PM EDT1 3:14 PM EDT Narrative [facility] - 05/13/2025 4:47 PM EDT [facility] , Authorizing ProviderResult TypeResult StatusCorey Jay DOCLINISYNCFinal Result Performing OrganizationAddressCity/State/ZIP CodePhone Number [facility] * ALL RUBELLA IGG AB (05/13/2025 3:10 PM EDT)ComponentValueRef RangeTest Method Analysis TimePerformed AtPathologist SignatureRUBELLA ANTIBODIES, IGG1.91 Immune >0.99 indexTBHComment: Non-immune <0.90 ?Equivocal ??0.90 - 0.99 Immune >0.99 Performed at: ?? - [facility] [address] ??[id number] Scrap Cutter: Barrington Reyes PhD, Phone: ??[phone] Specimen (Source)Anatomical Location / LateralityCollection Method / Volume Collection TimeReceived Time05/13/2025 3:10 PM EDT1 3:14 PM EDT Narrative [facility] - 05/14/2025 6:08 AM EDT Authorizing ProviderResult TypeResult StatusCorey Jay DOCLINISYNCFinal Result Performing OrganizationAddressCity/State/ZIP CodePhone Number [facility] * (ABNORMAL) ALL CBC WITH AUTO DIFF (05/13/2025 3:10 PM EDT)ComponentValueRef RangeTest MethodAnalysis TimePerformed AtPathologist SignatureTBH WBC13.0(H) 4.0 - 11.0 10 3/uLTBHTBH RBC4.364.20 - 5.40 10 6/uLTBHTBH HGB13.812.0 - 16.0 g/dLTBHTBH HCT40.136.0 - 48.0 %TBHTBH MCV92.081.0 - 99.0 fLTBHTBH MCH31.726.7 - 34.0 pgTBHTBH MCHC34.429.9 - 35.2 g/dLTBHTBH RDW11.911.0 - 15.0 %TBHTBH PLT 358982 - 450 10 3/uLTBHTBH MPV11.09.5 - 13.5 [...] 3:10 PM EDT1 3:14 PM EDT Narrative [facility] - 05/13/2025 3:54 PM EDT Authorizing ProviderResult TypeResult StatusCorey Jay DOCLINISYNCFinal Result Performing OrganizationAddressCity/State/ZIP CodePhone Number [facility] * (ABNORMAL) POCT , urine manually resulted [...] Orta MD Authorizing ProviderResult TypeResult StatusCorey Jay GUZMANMG OB US PROCEDURES Final Result from Last 3 Months Insurance Care Teams Team MemberRelationshipSpecialtyStart DateEnd Date Virginia Oviedo MD [address] [place] [address] PCP - GeneralFamily Medicine11/17/24
--- OUTSIDE RECORDS SUMMARY | 2025-07-06 21:40 | XMS_ITS | Clinical Summary ---
Author Organization [facility] Address [address], [address] [place] [address] Care Team Providers Care Railroad Car Cleaner Name Role Phone Virginia Oviedo MD Primary Care Provider [phone] Allergies Active AllergyReactionsCriticalityNoted DateCommentsDoxycyclineHivesMedium 08/25/2023 Medications MedicationSigDispense QuantityRefillsLast FilledStart DateEnd DateStatus pantoprazole (PROTONIX) 20 MG tablet Take 1 tablet by mouth every morning (before breakfast) 90 tablet ctive naproxen (NAPROSYN) 375 MG tablet Take 1 tablet 2 times a days with food for 5 days, then 1 tablet 2 times a day as needed for pain 40 tablet 09/19/2023ctive Active Problems ProblemNoted DateDiagnosed IipjKbodcbvspqmmb77/03/2024 Resolved Problems ProblemNoted DateDiagnosed DateResolved UuhwNoqknbzawacwt11/05/202402/ Acute biliary pancreatitis without infection or / Fapekfoujmfp04/03/202402/ Social History Tobacco UseTypesPacks/DayYears UsedDateSmoking Tobacco: NeverSmokeless [...] Source: IP Abuse ScreeningAnswerDate RecordedRead-Only, Retired: Physical IqjbgZsibmq29/28/2024Read-Only, Retired: Verbal PbnptOikhzx90/28/2024 Read-Only, Retired: Emotional ilyqkFjiktq06/28/2024Read-Only, Retired: Financial JlnktPbaleq81/28/2024ead-Only, Retired: Sexual hdqliEkozsz54/28/2024 CommentsNoSex and Gender InformationValueDate RecordedSex Assigned at BirthNot on fileLegal QgmUnuobk83/03/2024 3:23 AM ESTGender IdentityNot on fileSexual OrientationNot on file Last Filed Vital Signs Vital SignReadingTime TakenCommentsBlood Lvoaopgg199/69010/04/2023 9:11 AM EDT Vfpau76736/14/2024 9:11 AM JXAXrqdbzgnvxv66.8 ??C (98.3 ??F)10/04/2023 9:11 AM EDTRespiratory Vmcy718609/19/2023 4:00 PM ESTOxygen Vwxdjkbsqk52%09/19/2023 4:00 PM ESTInhaled Oxygen Concentration--Eioisk70.3 kg (144 lb)10/04/2023 9:11 AM EDT Zasytm780.7 cm (5' 8 )09/03/2023 1:21 PM ESTBody Mass Index21.902 1:21 PM EST Plan of Treatment Health MaintenanceDue DateLast DoneCommentsDepression Lodsde5204/17/2009HIV screen 2012Hepatitis C hfayow4604/17/2015Pap smear2018DTaP/Tdap/Td vaccine (8 - Td or Tdap)5011/14/2014, 04/20/2008, 12/11/2001, Additional history existsFlu vaccine (#1)51COVID-19 Vaccine ( - season) 2025Hepatitis B empzsqeFpuiwpzdd42/08/1998, 1997, 1997Hib acpkjudThnqjhxim29/27/1999, 1997, 1997, Additional history exists Polio dlzafzlJsgjiqbxd82/22/2002, 08/18/1998, 1997, Additional history existsVaricella lvjvsleChehtgtxf59/29/2008, 08/18/1998HPV vaccineCompleted 10/29/2008, 06/25/2008, 04/20/2008Meningococcal (ACWY) vaccineCompleted [...] Date Virginia Oviedo MD [address] [place] [address] PCP - GeneralFamily Medicine08/25/23
--- OUTSIDE RECORDS SUMMARY | 2025-07-06 21:40 | XMS_ITS | Clinical Summary ---
Author Organization [facility] tem Address [facility] [address] [place] [address] Care Team Providers Care Classification Officer Name Role Phone David Vicenteash MARTINEZ-FAST FOOD SERVER Primary Care Provider [phone] Allergies Active AllergyReactionsCriticalityNoted BkasBzfjwyogBlrnqatorrldm83/10/2021 Medications MedicationSigDispense QuantityRefillsLast FilledStart DateEnd DateStatus ondansetron ODT (ZOFRAN-ODT) 4 mg disintegrating tablet Dissolve 4 mg on tongue every 6 (six) hours as needed for nausea or vomiting. Active vit no.662-dtsf-bqmes ( VITAMIN) 27 mg iron- 800 mcg tablet Take 1 tablet by mouth daily.Active Family History Medical HistoryRelationNameCommentsDiabetesFatherHypertensionFatherAneurysm Maternal GrandmotherbrainHypertensionMotherHeart diseaseSisterRelationNameStatus CommentsFatherMaternal GrandmotherMotherSister Social History Tobacco UseTypesPacks/DayYears UsedDateSmoking Tobacco: NeverChildcareAnswerDate KipodsvxWuyyetfpkSnmeljz70/09/2021EmploymentAnswerDate RecordedEmploymentUnknown 1Purpose - LifeAnswerDate RecordedPurpose and direction in lifeUnknown 1CommentsNoSex and Gender InformationValueDate RecordedSex Assigned at BirthNot on fileLegal HfjMseqza27/09/2021 2:55 PM ESTGender Identity Not on fileSexual OrientationNot on file Plan of Treatment Health MaintenanceDue DateLast DoneCommentsDepression Fmkpvtvwo40/26/2009Tobacco Nefqzzntd26/26/2009dult BMI Ourlbxgxs66/26/2015Pap Smear2018DTaP,Tdap and Td Vaccines (2 - Td or Tdap)5011/14/2014Influenza Nuxufeq6303/23/2025 Medical Devices [place] [address] MemberSubscriberPlan / Payer (Effective 2019-Present)Name:Jose Maria Corona Relation to Subscriber:ChildName:DANYELLE CORONA Date of :1974 (Home) Address: [address] [place] [address] Payer ID:Not on file Type:Not on file Address: [place] [id number] Care Teams Team MemberRelationshipSpecialtyStart DateEnd Date Tg Vicente APRN-RONALD [address] [place] [address] PCP - GeneralNurse Practitioner11/16/20
[2025-07-06 22:15] LABS: Glucose Urine UA NEGATIVE (NEGATIVE)
[2025-07-06 22:23] LABS: Cast Seen? NONE SEEN #/LPF (NONE SEEN); Crystals Seen? None Seen #/HPF (None Seen); Urine Culture Indicated YES-FRMC
--- NOTE | 2025-07-06 22:45 | US_ITS ---
[address] [address] Patient Name: DAYSI HATFIELD MRN: [id number] date: 1995 Sex: F Assigned Patient Location: [facility] Current Patient Location: [facility] Accession/Order Number: [id number] Exam Date: 07/06/2025 23:15 Report Date: 07/06/2025 23:52 At the request of: SOFÍA BRISENO DO Procedure: US OB cervical length US OB cervical length 07/06/2025 11:40 PM SIGNS AND SYMPTOMS: ^Vaginal discharge PROTOCOL: Transvaginal and transabdominal imaging of the gravid uterus COMPARISON: None FINDINGS: heart rate: 148 bpm. There is a subjectively normal amount of amniotic fluid. The placenta wrist 1.7 cm above the internal os of the cervix. The cervix measures 6.4 cm in length. The internal os cervix is closed. US/US OB cervical length IMPRESSION: The cervix measures 6.4 cm in length. The internal os cervix is closed. Impression dictated by: Kenroy Alaniz M.D. 07/06/2025 11:52 PM Dictation Location: [employer] Electronically authenticated by: [id number] Y Date: 07/06/2025 23:52
[2025-07-06 22:51] VITALS: BP 111/59; PULSE 86
== END 2025-07-06 23:35 | disposition home or self-care (01) ==
LOC: FBCO 21:37 → FBC 21:38
PROVIDERS: Visit Provider Obstetrics & Gynecology
DX: O26.892 Other specified pregnancy related conditions, second trimester (principal); Z3A.21 21 weeks gestation of pregnancy
CPT/HCPCS: 76817; 81001; 87086

== ENCOUNTER 2025-07-14 11:18 | Outpatient (OUT) | payer MEDICAID, SELFPAY ==
--- OUTSIDE RECORDS SUMMARY | 2025-06-30 09:00 | XMS_ITS | Encounter Summary ---
Author Organization [facility] Address [address] [place] [address] Care Team Providers Care Academic Support Director Name Role Phone Virginia Oviedo MD Primary Care Provider [phone] Encounter Details DateTypeDepartmentCare Team (Latest Contact Info)Lommjxiegzh25/09/2025 9:00 AM ESTAncillary Procedure [facility] [address] [place] [address] Screening, , for anatomic survey ([facility]) Social History Tobacco UseTypesPacks/DayYears UsedDateSmoking Tobacco: Never Assessed Estimated Date of PpneniiyMpdkxygsMty22/26/2026Based on Ultrasound, FHR: 175Sex and Gender InformationValueDate RecordedSex Assigned at BirthNot on fileLegal WzpGrbcsw69/15/2023 7:28 PM EDTGender IdentityNot on fileSexual OrientationNot on filedocumented as of this encounter Plan of Treatment DateTypeDepartmentCare Team (Latest Contact Info)Kxyrdcaeutn98/06/2026 11:30 AM ESTAncillary Procedure [facility] [address] [place] [address] 08/12/2025 9:30 AM ESTRoutine [facility] [address] [place] [address] Chante Queen, STRATEGIC ACCOUNT DIRECTOR [address] [place] [address] documented as of this encounter Procedures Procedure NamePriorityDate/TimeAssociated DiagnosisCommentsUS OB 14+ WEEKS ANATOMY IXVHHdbqpuw10/09/2025 10:09 AM EST Screening, , for anatomic survey ([facility]) documented in this encounter Results * US OB 14+ weeks anatomy scan (06/30/2025 10:09 AM EST)Anatomical Region LateralityModalityBodyUltrasoundSpecimen (Source)Anatomical Location / LateralityCollection Method / VolumeCollection TimeReceived Time07/11/2025 10:53 AM EST Impressions 07/13/2025 7:55 AM EST Single, live intrauterine , current sonographic age of 20 weeks and 3 days, with an estimated date of delivery of November 14, 2025. * ??Estimated Weight (g) by Percentile is based upon an accurate estimated age based onlast menstrual period. ?? TRANSCRIBED BY: ? ELECTRONICALLY SIGNED BY: Akil Orta MD Narrative 07/13/2025 7:55 AM EST FINDINGS: A single, live intrauterine is present with normal cardiac rate of 142 ??beats per minute. Normal activity and amniotic fluid volume. Amniotic fluid index is ?? cm. ??Morphologyis grossly normal. The cervix is long and closed, ?? 3.8 cm. ??The placenta is anterior, inferior aspect 4.5 cm from the closed cervical os. ??The current sonographic age is 20 weeks and 3 ??days, based on the following measurements: ?BPD ? 4.6 cm (20 ??weeks, 0 days) ?Head Circumference ? 17.5cm (20 weeks,0 ??days) ?Abdominal Circumference ? 16.0cm (21 weeks, 1 days) ?Femur Length ? 3.3cm (20 weeks, 2 days) ?Presentation ? Breech ?Placenta ? Anterior ? Weight (g) by Percentile ??67.1 % These measurements result in an estimated date of delivery of ??November 14, 2025. ?? The current estimated weight is ??369 ??grams ( ??pound, 13 ??ounces). ?? Procedure Note Akil Orta MD - 07/13/2025 FINDINGS: A single, live intrauterine is present with normal cardiacrate of 142 beats per minute. Normal activity and amniotic fluidvolume. Amniotic fluid index is cm. Morphology is grossly normal. Thecervix is long and closed, 3.8 cm. The placenta is anterior, inferioraspect 4.5 cm from the closed cervical os. The current sonographic age is20 weeks and 3 days, based on the following measurements: BPD 4.6 cm (20 weeks, 0 days) Head Circumference 17.5cm (20 weeks,0 days) Abdominal Circumference 16.0cm (21 weeks, 1 days) Femur Length 3.3cm (20 weeks, 2 days) Presentation Breech Placenta Anterior Weight (g) by Percentile 67.1 % These measurements result in an estimated date of delivery of October. The current estimated weight is 369 grams ( pound, 13ounces). IMPRESSION: Single, live intrauterine , current sonographic age of 20 weeksand 3 days, with an estimated date of delivery of November 14, 2025. * Estimated Weight (g) by Percentile is based upon an accurateestimated age based on last menstrual period. TRANSCRIBED BY: ELECTRONICALLY SIGNED BY: Akil Orta MD Authorizing ProviderResult TypeResult StatusAmy [facility] US PROCEDURES Final Result documented in this encounter Visit Diagnoses Diagnosis Screening, , for anatomic survey ([facility]) Encounter for anatomic survey documented in this encounter Care Teams Team MemberRelationshipSpecialtyStart DateEnd Date Virginia Oviedo MD [address] [place] [address] PCP - GeneralFamily Medicine11/17/24documented as of this encounter
--- OUTSIDE RECORDS SUMMARY | 2025-07-14 09:50 | XMS_ITS | Encounter Summary ---
Author Organization [facility] Address [address] [place] [address] Care Team Providers Care Skin Care Instructor Name Role Phone Virginia Oviedo MD Primary Care Provider [phone] Reason for Visit * ReasonCommentsRoutine VisitWell Women VisitSTI Screening Encounter Details DateTypeDepartmentCare Team (Latest Contact Info)Bxgzhvygzvj68/23/2025 9:50 AM ESTRoutine [facility] [address] [place] [phone] Hung Thompson DO [address] [facility] [address] [place] [phone] Screening, , for anatomic survey ([facility]); Well woman exam with routine gynecological exam; Second trimester ([facility]); 22 weeks gestation of ([facility]); Vaginal discharge; STD exposure; Upper respiratory tract infection, unspecified type Social History Tobacco UseTypesPacks/DayYears UsedDateSmoking Tobacco: Never Assessed Estimated Date of EnbuyuiqOibcihrzQoz52/26/2026Based on Ultrasound, FHR: 175Sex and Gender InformationValueDate RecordedSex Assigned at BirthNot on fileLegal AeaFahuui60/15/2023 7:28 PM EDTGender IdentityNot on fileSexual OrientationNot on filedocumented as of this encounter Last Filed Vital Signs Vital SignReadingTime TakenCommentsBlood Qypdkplu915/7007/14/2025 10:27 AM EST Pulse--Temperature--Respiratory Rate--Oxygen Saturation--Inhaled Oxygen Concentration--Ngqgff92.7 kg (169 lb 1.9 oz)07/14/2025 10:27 AM ESTHeight--Body Mass Index26.49011/17/2022 12:00 PM EDTdocumented in this encounter Plan of Treatment DateTypeDepartmentCare Team (Latest Contact Info)Aumychhpikq51/06/2026 11:30 AM ESTAncillary Procedure [facility] [address] [place] [address] 08/12/2025 9:30 AM ESTRoutine [facility] [address] [place] [address] Chante Queen, DES [address] [facility] [place] [address] NameTypePriorityAssociated DiagnosesOrder ScheduleSURESWAB(R) ADVANCED VAGINITIS PLUS, TMAPathology and CytologyRoutine Vaginal discharge Ordered: 07/14/2025HLAMYDIA TRACHOMATIS (GENITO/STI)LabRoutine STD exposure Ordered: 07/14/2025Neisseria gonorrhea DNA probe, directLabRoutine STD exposure Ordered: 07/14/2025Pap SmearPathology and CytologyRoutine Well woman exam with routine gynecological exam Ordered: 07/14/2025US OB 14+ weeks anatomy scanImagingRoutine Screening, , for anatomic survey ([facility]) Expected: 07/14/2025, Expires: 6Alpha fetoprotein, maternalLabRoutine Second trimester ([facility]) 22 weeks gestation of ([facility]) Expected: 07/14/2025 (Approximate), Expires: 01/12/2026documented as of this encounter Procedures Procedure NamePriorityDate/TimeAssociated DiagnosisCommentsPOCT URINALYSIS NRITEKLJMimzxxn69/23/2025 10:38 AM EST Second trimester ([facility]) 22 weeks gestation of ([facility]) documented in this encounter Results * (ABNORMAL) POCT urinalysis dipstick manually resulted (07/14/2025 10:38 AM EST)ComponentValueRef RangeTest MethodAnalysis TimePerformed AtPathologist SignatureColor, UAYellowClarity, UAClearGlucose, UANegativeNegative - 1999(110) ++++ mg/dLBilirubin, UANegativeNegative - 4(70) +++ mg/dLKetones, UA NegativeNegative - 160(16) ++++ mg/dLSpec Grav, UA1.0101 - 1.03Blood, UA NegativeNegative - 50 Rajendra/mcLpH, UA8.05 - 9Protein, UANegativeNegative - 2000(20) ++++ mg/dLUrobilinogen, UA1.00.2 - 12 mg/dLLeukocytes, UAPositive Negative - 500+++ Laura/mcLNitrite, UANegativeNegative - PositiveSpecimen (Source)Anatomical Location / LateralityCollection Method / VolumeCollection TimeReceived QhjcWderv25/23/2025 10:38 AM EST Narrative Authorizing ProviderResult TypeResult StatusCorey Jay DOPOINT OF CARE TEST ENTER/EDIT ORDERABLESFinal Result documented in this encounter Visit Diagnoses Diagnosis Screening, , for anatomic survey ([facility]) Encounter for anatomic survey Well woman exam with routine gynecological exam Routine gynecological examination Second trimester ([facility]) state, incidental 22 weeks gestation of ([facility]) Vaginal discharge Leukorrhea, not specified as infective STD exposure Upper respiratory tract infection, unspecified type documented in this encounter Care Teams Team MemberRelationshipSpecialtyStart DateEnd Virginia Oviedo MD [address] [place] [address] PCP - GeneralFamily Medicine11/17/24documented as of this encounter
--- OUTSIDE RECORDS SUMMARY | 2025-07-14 11:22 | XMS_ITS | Clinical Summary ---
Author Organization [facility] Address [address] [place] [address] Care Team Providers Care Fleet Sales Associate Name Role Phone Virginia Oviedo MD Primary Care Provider [phone] Allergies Active AllergyReactionsCriticalityNoted DateCommentsDoxycyclineHivesMedium 08/25/2023 Other Reaction(s): hives Bqtpkhthrjlc61/10/2021Tetracyclines & Nxszzqm5109/29/2020 Medications MedicationSigDispense QuantityRefillsLast FilledStart DateEnd DateStatus Vit-Fe Fumarate-FA ( VITAMIN PO) Take by mouth DailyActive aspirin 81 MG EC tablet Take 81 mg by mouth DailyActive docusate sodium (Colace) 250 MG capsule Take 250 mg by mouth DailyActive azithromycin (Zithromax Z-Krystian) 250 MG tablet Indications:Upper respiratory tract infection, unspecified typeAs directed 6 tablet 5Active Encounters DateTypeDepartmentCare TqguSocpxojporc78/23/2025 9:50 [place] [address] Sofía Thompson DO Screening, , for anatomic survey ([facility]); Well woman exam with routine gynecological exam; Second trimester ([facility]); 22 weeks gestation of ([facility]); Vaginal discharge; STD exposure; Upper respiratory tract infection, unspecified type07/14/2025amboo flowsheet [facility] [place] [address] [place] [address] Sofía Thompson DO 07/08/2025Telephone [facility] [address] [place] [address] Sofía Thompson, DO 07/06/2025External Result Encounter [facility] External Department Unsolicited Sofía Thompson, DO 07/06/2025linisync Result Encounter NOMS External Department Unsolicited Sofía Thompson, DO 07/06/2025linisync Result Encounter [facility]OMS External Department Unsolicited Sofía Thompson, DO 06/30/2025 9:00 AM ESTAncillary Procedure [facility] [address] [place] [phone] Screening, , for anatomic survey ([facility])06/15/2025 10:40 AM EST Routine [facility] [place] [facility] [address] [place] [phone] Sera Lau PA Diabetes mellitus screening; Second trimester ([facility]); 18 weeks gestation of ([facility]); STD exposure; Well woman exam with routine gynecological exam; Screening, , for anatomic survey ([facility]); Missed menses; , unspecified gestational age ([facility])06/15/2025amboo flowsheet [facility] [place] [facility] [address] [place] [phone] Sera Lau PA 06/06/2025linisync Result Encounter NOMS External Department Unsolicited Sofía Thompson, DO 05/18/2025 10:10 AM EDTRoutine [facility] [address] [place] [address] Sofía Thompson, DO Second trimester ([facility]); 14 weeks gestation of ([facility]); Diabetes mellitus lnljchyyz02/27/2025Telephone [facility] [place] [facility] [address] [facility] [place] [address] Catherine Canales MA 05/18/2025amboo flowsheet [facility] [place] [facility] [place] [phone] Sofía Thompson, 05/13/2025bstract [facility] [place] [facility] [place] [address] [place] [address] Sofía Thompson, 05/13/2025linisync Result Encounter [facility]OM[facility] External Department Unsolicited Sofía Thompson, 05/07/2025Patient Outreach [facility] [address] [place] [address] Sera Cabezas LPN 04/30/2025bstract [facility] [address] [place] [address] Sera Cabezas LPN 04/16/2025 1:30 PM EDTInitial [facility] [place] [address] [place]: 9w4d04/16/2025 1:00 PM EDTAncillary Procedure [facility] [place] [address] Missed menses; Positive urine test ([facility])from Last 3 Months Social History Tobacco UseTypesPacks/DayYears UsedDateSmoking Tobacco: Never Assessed Estimated Date of CjwqlmamIwvycmryBis67/26/2026ased on Ultrasound, FHR: 175Sex and Gender InformationValueDate RecordedSex Assigned at BirthNot on fileLegal ZpaYxehki33/15/2023 7:28 PM EDTGender IdentityNot on fileSexual OrientationNot on file Last Filed Vital Signs Vital SignReadingTime TakenCommentsBlood Pjpbesdh398/7007/14/2025 10:27 AM EST Pulse--Temperature--Respiratory Rate--Oxygen Saturation--Inhaled Oxygen Concentration--Ezmnew03.7 kg (169 lb 1.9 oz)07/14/2025 10:27 AM WFYDkxwvp921.2 cm (5' 7 )11/17/2022 12:00 PM EDTBody Mass Index26.49011/17/2022 12:00 PM EDT Plan of Treatment DateTypeDepartmentCare Team (Latest Contact Info)Njpnyrnzijd03/06/2026 11:30 AM ESTAncillary Procedure [facility] [place] [address] [place] [phone] 08/12/2025 9:30 AM ESTRoutine [facility] [place] [address] [place] [address] Chante Queen, IVORY CARVER [address] [facility] [place] [address] Health MaintenanceDue DateLast DoneCommentsInfluenza Vaccine (#1)03/23/2025 04/20/2008, 04/24/2007Pneumococcal Vaccine: Pediatrics (0 to 5 Years) and At- Risk Patients (6 to 64 Years)Aged OutNo longer eligible based on patient's age to complete this topic Procedures Procedure NamePriorityDate/TimeAssociated DiagnosisCommentsPOCT URINALYSIS TDPTPUEXFigwekl22/23/2025 10:38 AM EST Second trimester ([facility]) 22 weeks gestation of ([facility]) US OB CERVICAL WZTDGX2407/06/2025 11:52 PM EST URINE CULTURE - OVIIHmusnsi65/15/2025 10:00 PM EST [facility] UA (CLEAN/CATCH) SOIL CONSERVATION TECHNICIAN/MICRO IF IND.Nmyjlau8407/06/2025 10:00 PM EST CULTURE, URINE, YCJNVTZQgwgpsd60/15/2025 10:00 PM EST US OB 14+ WEEKS ANATOMY VRXQXkzlfvw27/09/2025 10:09 AM EST Screening, , for anatomic survey ([facility]) POCT URINALYSIS JSQDBIQSLrijguy45/24/2025 11:21 AM EST 18 weeks gestation of ([facility]) GLUCOSE 1 SFOKMjfwiby62/15/2025 1:02 PM EST POCT URINALYSIS ESZOTUHJYtvasgm69/27/2025 10:57 AM EDT 14 weeks gestation of ([facility]) [facility] DRUG SCREEN RAPID (URINE)Atqpbeu7705/13/2025 3:25 PM EDT URINE CULTURE, BRGRHYCGbugfod84/22/2025 3:25 PM EDT HBSAG NVASVZGxjhpfq31/22/2025 3:10 PM EDT RAPID PLASMA REAGIN, TQJSMPuxrrsi99/22/2025 3:10 PM EDT HCV ANTIBODY RFX TO QUANT FHUBnduszh12/22/2025 3:10 PM EDT ALL RUBELLA IGG OQRajqzbg54/22/2025 3:10 PM EDT HIV AB/P24 AG WITH LZTWTUNieplqf71/22/2025 3:10 PM EDT ALL TYPE AND EVXDOAMvztqrf45/22/2025 3:10 PM EDT ALL CBC WITH AUTO OXFVVvluqlb07/22/2025 3:10 PM EDT MLR HEMOGLOBIN S6TQlgtaug23/22/2025 3:10 PM EDT POCT , OKVHSDbtaiwo13/25/2025 2:48 PM EDT Missed menses POCT URINALYSIS MWUWBPCORdrwmzw79/25/2025 2:47 PM EDT Missed menses US OB HYDVCYMKIBPNOlplptl89/25/2025 1:36 PM EDT Missed menses Positive urine test ([facility]) from Last 3 Months Results * (ABNORMAL) POCT urinalysis dipstick manually resulted (07/14/2025 10:38 AM EST) Only the most recent of4 resultswithin the time period is included. ComponentValueRef RangeTest MethodAnalysis TimePerformed AtPathologist Signature Color, UAYellowClarity, UAClearGlucose, UANegativeNegative - 2000(110) ++++ mg/dLBilirubin, UANegativeNegative - 4(70) +++ mg/dLKetones, UANegativeNegative - 160(16) ++++ mg/dLSpec Grav, UA1.0101 - 1.03Blood, UANegativeNegative - 50 Rajendra/mcLpH, UA8.05 - 9Protein, UANegativeNegative - 2000(20) ++++ mg/dL Urobilinogen, UA1.00.2 - 12 mg/dLLeukocytes, UAPositiveNegative - 500+++ Laura/mcL Nitrite, UANegativeNegative - PositiveSpecimen (Source)Anatomical Location / LateralityCollection Method / VolumeCollection TimeReceived KlsuXarqi41/23/2025 10:38 AM EST Narrative Authorizing ProviderResult TypeResult StatusCorey Jay DOPOINT OF CARE TEST ENTER/EDIT ORDERABLESFinal Result * US OB CERVICAL LENGTH (07/06/2025 11:52 PM EST)Anatomical RegionLaterality ModalityOtherSpecimen (Source)Anatomical Location / LateralityCollection Method / VolumeCollection TimeReceived Time07/06/2025 11:52 PM EST Narrative 07/06/2025 11:55 PM EST [facility] ?[address] ? [place] [address] ? Ultrasound Report ? Signed ? Patient: JOSE MARIA CORONA S M ?MR#: [id number] ?? : 1995 ?Acct:[id number] ?? Age/Sex: 30 / F ?ADM Date: 07/06/25 ?? Loc: FBCO ? Attending Dr: Sofía Thompson D.O. ? Ordering Physician: Sofía Tohmpson D.O. ?? Date of Service: 07/06/25 ?? Procedure(s): US OB cervical length ?? Accession Number(s): [id number] ? cc: Sofía Thompson D.O.; Physician,Non-Staff MWojciechDWojciech ? [facility] ? [address] ? [place] [address] ? Patient Name: ?? JOSE MARIA CORONA ? MRN: [facility]:[id number] ? date: 1995 ?Sex: F ?? Assigned Patient Location: FB ?? Current Patient Location: FB ?? Accession/Order Number: [id number] ?? Exam Date: 07/06/2025 ??23:15 ?Report Date: 07/06/2025 ??23:52 ? At the request of: ?? SOFÍA ??JAY ??DO ? Procedure: ??US OB cervical length ? US OB cervical length ??07/06/2025 11:40 PM ? SIGNS AND SYMPTOMS: ?? Vaginal discharge ? PROTOCOL: Transvaginal and transabdominal imaging of the gravid uterus ? COMPARISON: None ? FINDINGS: ? heart rate: 148 bpm. ? There is a subjectively normal amount of amniotic fluid. ? The placenta wrist 1.7 cm above the internal os of the cervix. ??The cervix ?? measures 6.4 cm in length. ??The internal os cervix is closed. ? US/US OB cervical length ?? IMPRESSION: ? The cervix measures 6.4 cm in length. ??The internal os cervix is closed. ? Impression dictated by: Kenroy Alaniz M.D. ??07/06/2025 11:52 PM ? Dictation Location: [place] [address] ? Electronically authenticated by: [id number] ??Y ?? Date: 07/06/2025 ??23:52 ? Dictated By: ?Kenroy Alaniz M.D. ? Signed By: ?07/06/25 2355 ? DD/ 2352 ? TD/TT: ? Banquet Prep Cook: Procedure Note Radiology, Radiologist, MD - 07/06/[address] [address] Ultrasound Report Signed Patient: JOSE MARIA CORONA MMR#: [id number] : 1995Acct:[id number] Age/Sex: 30 / FADM Date: 07/06/25 Loc: FBCO Attending Dr: Sofía Thompson D.O. Ordering Physician: Sofía Thompson D.O. Date of Service: 07/06/25 Procedure(s): US OB cervical length Accession Number(s): [id number] cc: Sofía Thompson D.O.; Physician,Non-Staff [address] [place] [address] Patient Name: JOSE MARIA CORONA MRN: [facility]:[id number] date: 1995 Sex: F Assigned Patient Location: [facility] Current Patient Location: [facility] Accession/Order Number: [id number] Exam Date: 07/06/2025 23:15 Report Date: 07/06/2025 23:52 At the request of: SOFÍA THOMPSON DO Procedure: US OB cervical length US OB cervical length 07/06/2025 11:40 PM SIGNS AND SYMPTOMS: Vaginal discharge PROTOCOL: Transvaginal and transabdominal imaging of the gravid uterus COMPARISON: None FINDINGS: heart rate: 148 bpm. There is a subjectively normal amount of amniotic fluid. The placenta wrist 1.7 cm above the internal os of the cervix. The cervix measures 6.4 cm in length. The internal os cervix is closed. US/US OB cervical length IMPRESSION: The cervix measures 6.4 cm in length. The internal os cervix is closed. Impression dictated by: Kenroy Alaniz M.D. 07/06/2025 11:52 PM Dictation Location: [place] [address] Electronically authenticated by: [id number] Y Date: 3:52 Dictated By: Kenroy Alaniz M.D. Signed By:07/06/252354 DD/ 51 TD/TT: Banquet Prep Cook: Authorizing ProviderResult TypeResult StatusCorey Jay DOCLINISYNC IMAGINGFinal Result * URINE CULTURE - [facility] (07/06/2025 10:00 PM EST)ComponentValueRef RangeTest MethodAnalysis TimePerformed AtPathologist SignatureURINE CULTURE - [facility] ??Urine Culture - [facility] SEE[facility] RESULT^[facility] RESULT TBHUR[facility] SEE SCANNED REPORT, NORMAL^SEE SCANNED REPORT, NORMALTBHSpecimen (Source)Anatomical Location / LateralityCollection Method / VolumeCollection TimeReceived Time07/06/2025 10:00 PM EST07/06/2025 10:13 PM EST Narrative [facility] - 07/09/2025 1:32 PM EST Authorizing ProviderResult TypeResult StatusCorey Jay DOLAB BLOOD ORDERABLES Final ResultPerforming OrganizationAddressCity/State/ZIP CodePhone Number [facility] * (ABNORMAL) [facility] UA (CLEAN/CATCH) SOIL CONSERVATION TECHNICIAN/MICRO IF IND. (07/06/2025 10:00 PM EST) ComponentValueRef RangeTest MethodAnalysis TimePerformed AtPathologist SignatureCOLOR URINELT. YELLOWYELLOWTBHCLARITY URINECLEARCLEARTBHSPECIFIC GRAVITY URINE1.0251.005 - 1.025TBHPH URINE6.05.0 - 9.0TBHPROTEIN URINENEGATIVE NEG/TRACE mg/dLTBHGLUCOSE URINE UANEGATIVENEGATIVE mg/dLTBHBILIRUBIN URINE NEGATIVENEGATIVETBHKETONES URINETRACE(A)NEGATIVE mg/dLTBHBLOOD URINENEGATIVE NEGATIVETBHNITRITE URINENEGATIVENEGATIVETBHUROBILINOGEN URINE0.20.2 - 1.0 EU/dLTBHLEUKOCYTE ESTERASE URINEMODERATE(A)NEGATIVETBHURINE MICROSCOPIC INDICATEDYESTBHSpecimen (Source)Anatomical Location / LateralityCollection Method / VolumeCollection TimeReceived Time07/06/2025 10:00 PM EST07/06/2025 10:13 PM EST Narrative [facility] - 07/06/2025 10:16 PM EST Authorizing ProviderResult TypeResult StatusCorey Jay DOCLINISYNCFinal Result Performing OrganizationAddressCity/State/ZIP CodePhone Number [facility] * Urine culture (07/06/2025 10:00 PM EST)ComponentValueRef RangeTest Method Analysis TimePerformed AtPathologist SignatureFR NOTE?20,000 colonies/ml mixed ?bacterial skin contaminants ?2 Days 07/09/2025 11:26 AM [facility] CtrSpecimen (Source)Anatomical Location / LateralityCollection Method / VolumeCollection TimeReceived TimeUrine Urine specimen obtained by clean catch procedure / Iumptax0807/06/2025 10:00 PM EST07/07/2025 1:28 PM ESTComment:Clean-Voided Midstream Narrative [facility] - 07/09/2025 11:26 AM EST Diagnosis: Bleeding Comment: Authorizing ProviderResult TypeResult StatusCorey Jay DOLAB MICROBIOLOGY - GENERAL ORDERABLESFinal ResultPerforming OrganizationAddressCity/State/ZIP Code Phone Number [facility] [address] [place] [id number], [facility] [address] [place] [address] * OB 14+ weeks anatomy scan (06/30/2025 10:09 [...] BY: Akil Orta MD Authorizing ProviderResult TypeResult StatusSera PICKETT OB US PROCEDURES Final Result * GLUCOSE 1 HOUR (06/06/2025 1:02 PM EST)ComponentValueRef RangeTest Method Analysis TimePerformed AtPathologist SignatureGLUCOSE 1 NCFU631<130 mg/dLTB Specimen (Source)Anatomical Location / LateralityCollection Method / Volume Collection TimeReceived Time06/06/2025 1:02 PM EST06/06/2025 1:07 PM EST Narrative [facility] - 06/06/2025 1:49 PM EST Authorizing ProviderResult TypeResult StatusCorey Jay DOLAB BLOOD ORDERABLES Final ResultPerforming OrganizationAddressCity/State/ZIP CodePhone Number [facility] * URINE CULTURE, ROUTINE (05/13/2025 3:25 PM EDT)ComponentValueRef RangeTest MethodAnalysis TimePerformed AtPathologist SignatureURINE CULTURE, ROUTINE ??Urine Culture, Routine TBHURINE CULTURE, ROUTINEMixed urogenital floraTBHURINE CULTURE, LZVGBYX22,000- 25,000 colony forming units per mLTBHURINE CULTURE, ROUTINEPerformed at: [facility]o RegionTBHURINE CULTURE, [id number] [place], [place] [id number] URINE CULTURE, ROUTINELab Director: Barrington Reyes PhD, Phone: [phone] Specimen (Source)Anatomical Location / LateralityCollection Method / Volume Collection TimeReceived Time05/13/2025 3:25 PM EDT1 3:25 PM EDT Narrative [facility] - 05/16/2025 7:07 AM EDT Authorizing ProviderResult TypeResult StatusCorey Jay DOLAB BLOOD ORDERABLES Final ResultPerforming OrganizationAddressCity/State/ZIP CodePhone Number [facility] * [facility] DRUG SCREEN RAPID (URINE) (05/13/2025 [...] DOCLINISYNCFinal Result Performing OrganizationAddressCity/State/ZIP CodePhone Number [facility] * HBSAG SCREEN (05/13/2025 3:10 PM EDT)ComponentValueRef RangeTest Method Analysis TimePerformed AtPathologist SignatureHBSAG SCREENTNP.TBHComment: Please refer to the following specimen for additional lab results. Please refer to [phone] for results. Specimen (Source)Anatomical Location / LateralityCollection Method / Volume Collection TimeReceived Time05/13/2025 3:10 PM EDT1 3:14 PM EDT Narrative [facility] - 05/14/2025 5:08 PM EDT Authorizing ProviderResult TypeResult StatusCorey Jay DOLAB BLOOD ORDERABLES Final ResultPerforming OrganizationAddressty/State/ZIP CodePhone Number [facility] * RAPID PLASMA REAGIN, QUANT (05/13/2025 3:10 PM EDT)ComponentValueRef RangeTest MethodAnalysis TimePerformed AtPathologist SignatureRAPID PLASMA REAGIN, QUANT TNP. titerTBHComment: Please refer to the following specimen for additional lab results. Please refer to [phone] for results. Please Note: This test does not meet current guidelines for screening and diagnosis of syphilis. This test is intended for following treatment response in patients being treated for syphilis infection. To screen for syphilis infection, a reflex cascade that includes both RPR and a treponema-specific assay should be utilized, such as Treponema pallidum (Syphilis) Screening Brigantine (160829) or Rapid Plasma Reagin (RPR) Test With Reflex to Quantitative RPR and Confirmatory Treponema pallidum Antibodies (981452). Specimen (Source)Anatomical Location / LateralityCollection Method / Volume Collection TimeReceived Time05/13/2025 3:10 PM EDT1 3:14 PM EDT Narrative [facility] - 05/14/2025 5:08 PM EDT Authorizing ProviderResult TypeResult StatusCorey Jay DOLAB BLOOD ORDERABLES Final ResultPerforming OrganizationAddressty/State/ZIP CodePhone Number [facility] * HIV AB/P24 AG WITH REFLEX (05/13/2025 3:10 PM EDT)ComponentValueRef RangeTest MethodAnalysis TimePerformed AtPathologist SignatureHIV AB/P24 AG SCREENNon ReactiveNon ReactiveTBHComment: HIV-1/HIV-2 antibodies and HIV-1 p24 antigen were NOT detected. There is no laboratory evidence of HIV infection. HIV Negative Performed at: ?? - [facility] [address] ??[id number] Lpn: Barrington Reyes PhD, Phone: ??[phone] Specimen (Source)Anatomical Location / LateralityCollection Method / Volume Collection TimeReceived Time05/13/2025 3:10 PM EDT1 3:14 PM EDT Narrative [facility] - 05/14/2025 5:08 AM EDT Authorizing ProviderResult TypeResult StatusCorey Jay DOLAB BLOOD ORDERABLES Final ResultPerforming OrganizationAddressty/State/ZIP CodePhone Number [facility] * HCV ANTIBODY RFX TO QUANT PCR [...] 3:10 PM EDT1 3:14 PM EDT Narrative [facility] - 05/14/2025 6:08 AM EDT Authorizing ProviderResult TypeResult StatusCorey Jay DOLAB BLOOD ORDERABLES Final ResultPerforming OrganizationAddressCity/State/ZIP CodePhone Number [facility] * MLR HEMOGLOBIN A1C (05/13/2025 3:10 PM EDT)ComponentValueRef RangeTest Method Analysis TimePerformed AtPathologist SignatureGLYCOHEMOGLOBIN A1C5.24.5 - 6.2 %TBHComment: ADA RECOMMENDED LIMIT 4.0 - 6.0 ADA THERAPEUTIC TARGET < 7.0 ACTION SUGGESTED > 7.0 ESTIMATED AVERAGE JVVKMCB815as/dLTBHSpecimen (Source)Anatomical Location / LateralityCollection Method / VolumeCollection TimeReceived Time05/13/2025 3:10 PM EDT1 3:14 PM EDT Narrative [facility] - 05/13/2025 3:31 PM EDT Authorizing ProviderResult TypeResult StatusCorey Jay DOCLINISYNCFinal Result Performing OrganizationAddressty/State/ZIP CodePhone Number [facility] * ALL TYPE AND SCREEN (05/13/2025 3:10 PM EDT)ComponentValueRef RangeTest Method Analysis TimePerformed AtPathologist SignatureBLOOD TYPEA PositiveTBHANTIBODY SCREENNEGATIVETBHSpecimen (Source)Anatomical Location / LateralityCollection Method / VolumeCollection TimeReceived Time05/13/2025 3:10 PM EDT1 3:14 PM EDT Narrative [facility] - 05/13/2025 4:47 PM EDT [facility] , Authorizing ProviderResult TypeResult StatusCorey Jay DOCLINISYNCFinal Result Performing OrganizationAddressCity/State/ZIP CodePhone Number [facility] * ALL RUBELLA IGG AB (05/13/2025 3:10 PM EDT)ComponentValueRef RangeTest Method Analysis TimePerformed AtPathologist SignatureRUBELLA ANTIBODIES, IGG1.91 Immune >0.99 indexTBHComment: Non-immune <0.90 ?Equivocal ??0.90 - 0.99 Immune >0.99 Performed at: ??CB - [facility] [address] ??[id number] Lpn: Barrington Reyes PhD, Phone: ??[phone] Specimen (Source)Anatomical Location / LateralityCollection Method / Volume Collection TimeReceived Time05/13/2025 3:10 PM EDT1 3:14 PM EDT Narrative [facility] - 05/14/2025 6:08 AM EDT Authorizing ProviderResult TypeResult StatusCorey Jay DOCLINISYNCFinal Result Performing OrganizationAddressty/State/ZIP CodePhone Number [facility] * (ABNORMAL) ALL CBC WITH AUTO DIFF (05/13/2025 3:10 PM EDT)ComponentValueRef RangeTest MethodAnalysis TimePerformed AtPathologist SignatureTBH WBC13.0(H) 4.0 - 11.0 10 3/uLTBHTBH RBC4.364.20 - 5.40 10 6/uLTBHTBH HGB13.812.0 - 16.0 g/dLTBHTBH HCT40.136.0 - 48.0 %TBHTBH MCV92.081.0 - 99.0 fLTBHTBH MCH31.726.7 - 34.0 pgTBHTBH MCHC34.429.9 - 35.2 g/dLTBHTBH RDW11.911.0 - 15.0 %TBHTBH PLT 878678 - 450 10 3/uLTBHTBH MPV11.09.5 - 13.5 [...] DOCLINISYNCFinal Result Performing OrganizationAddressCity/State/ZIP CodePhone Number [facility] * (ABNORMAL) POCT , urine manually resulted [...] Orta MD Authorizing ProviderResult TypeResult StatusCorey Jay SOTOMAYOR OB US PROCEDURES Final Result from Last 3 Months Insurance Care Teams Team MemberRelationshipSpecialtyStart DateEnd Date Virginia Oviedo MD [address] [place] [address] [facility] - [facility]11/17/24
--- OUTSIDE RECORDS SUMMARY | 2025-07-14 11:22 | XMS_ITS | Encounter Summary ---
Author Organization [facility] Address [address] [place] [address] Care Team Providers Care Information Manager Name Role Phone Virginia Oviedo MD Primary Care Provider [phone] Encounter Details DateTypeDepartmentCare Team (Latest Contact Info)Yxgagmdudmo46/15/2025Clinisync Result Encounter [facility] External Department Unsolicited Hung Thompson, [address] [facility] [address] [place], [facility]11 Social History Tobacco UseTypesPacks/DayYears UsedDateSmoking Tobacco: Never Assessed Estimated Date of LwahxqhyPbtuukacZst13/26/2026Based on Ultrasound, FHR: 175Sex and Gender InformationValueDate RecordedSex Assigned at BirthNot on fileLegal HvkKkrhai98/15/2023 7:28 PM EDTGender IdentityNot on fileSexual OrientationNot on filedocumented as of this encounter Plan of Treatment DateTypeDepartmentCare Team (Latest Contact Info)Ywpwxjjactf62/06/2026 11:30 AM ESTAncillary Procedure [facility] RODRÍGUEZ [address] [place] [address] 08/12/2025 9:30 AM ESTRoutine [facility] RODRÍGUEZ [address] [place] [address] Chante Queen, TACTICAL RESPONSE GROUP OFFICER [address] [place] [address] documented as of this encounter Procedures Procedure NamePriorityDate/TimeAssociated DiagnosisCommentsURINE CULTURE - [facility] Xwfdlpi4107/06/2025 10:00 PM EST [facility] UA (CLEAN/CATCH) SOCIAL AND HUMAN SERVICES ASSISTANT/MICRO IF IND.Xoxdfmj2907/06/2025 10:00 PM EST documented in this encounter Results * URINE CULTURE - [facility] (07/06/2025 10:00 PM EST)ComponentValueRef RangeTest MethodAnalysis TimePerformed AtPathologist SignatureURINE CULTURE - [facility] ??Urine Culture - [facility] SEEFRMC [facility] RESULT^[facility] RESULT TBHURINE CULTURE - [facility]MCSEEN SEE SCANNED REPORT, NORMAL^SEE SCANNED REPORT, NORMALTBHSpecimen (Source)Anatomical Location / LateralityCollection Method / VolumeCollection TimeReceived Time07/06/2025 10:00 PM EST07/06/2025 10:13 PM EST Narrative [facility] - 07/09/2025 1:32 PM EST Authorizing ProviderResult TypeResult StatusCorey Jay DOLAB BLOOD ORDERABLES Final ResultPerforming OrganizationAddressCity/State/ZIP CodePhone Number [facility] * (ABNORMAL) [facility] UA (CLEAN/CATCH) SOCIAL AND HUMAN SERVICES ASSISTANT/MICRO IF IND. (07/06/2025 10:00 PM EST) ComponentValueRef [...] DOCLINISYNCFinal Result Performing OrganizationAddressCity/State/ZIP CodePhone Number [facility] documented in this encounter Visit Diagnoses Not on filedocumented in this encounter Care Teams Team MemberRelationshipSpecialtyStart DateEnd Date Virginia Oviedo MD [address] [place] [address] PCP - GeneralFamily Medicine11/17/24documented as of this encounter
--- OUTSIDE RECORDS SUMMARY | 2025-07-14 11:22 | XMS_ITS | Clinical Summary ---
Author Organization [facility] tem Address [facility] [address] [place] [address] Care Team Providers Care Labor Representative Name Role Phone David Vicenteash MARTINEZ-ELECTRONIC SCALE TESTER Primary Care Provider [phone] Allergies Active AllergyReactionsCriticalityNoted IwqbZtfbvxdmKxeiyqhkpngmr99/10/2021 Medications MedicationSigDispense QuantityRefillsLast FilledStart DateEnd DateStatus ondansetron ODT (ZOFRAN-ODT) 4 mg disintegrating tablet Dissolve 4 mg on tongue every 6 (six) hours as needed for nausea or vomiting. Active vit no.417-dpqt-uznqv ( VITAMIN) 27 mg iron- 800 mcg tablet Take 1 tablet by mouth daily.Active Family History Medical HistoryRelationNameCommentsDiabetesFatherHypertensionFatherAneurysm Maternal GrandmotherbrainHypertensionMotherHeart diseaseSisterRelationNameStatus CommentsFatherMaternal GrandmotherMotherSister Social History Tobacco UseTypesPacks/DayYears UsedDateSmoking Tobacco: NeverChildcareAnswerDate PbxfkzakKnnpisdmrPbjycpi96/09/2021EmploymentAnswerDate RecordedEmploymentUnknown 1Purpose - LifeAnswerDate RecordedPurpose and direction in lifeUnknown 1CommentsNoSex and Gender InformationValueDate RecordedSex Assigned at BirthNot on fileLegal SsyGlmaff27/09/2021 2:55 PM ESTGender Identity Not on fileSexual OrientationNot on file Plan of Treatment Health MaintenanceDue DateLast DoneCommentsDepression Czgmhkvcj31/26/2009Tobacco Rutqhpvfm02/26/2009dult BMI Aajzmfdte15/26/2015Pap Smear2018DTaP,Tdap and Td Vaccines (2 - Td or Tdap)5011/14/2014Influenza Demtnas7703/23/2025 Medical Devices [place] [address] MemberSubscriberPlan / Payer (Effective 2019-Present)Name:Jose Maria Corona Relation to Subscriber:ChildName:DANYELLE CORONA Date of :1972 (Home) Address: [address] [place] [address] Payer ID:Not on file Type:Not on file Address: [place] [id number] Care Teams Team MemberRelationshipSpecialtyStart DateEnd Date Tg Vicente APRN-RONALD [address] [place] [address] PCP - GeneralNurse Practitioner11/16/20
--- OUTSIDE RECORDS SUMMARY | 2025-07-14 11:22 | XMS_ITS | Encounter Summary ---
Author Organization [facility] Address [address] [place] [address] Care Team Providers Care Molecular Physicist Name Role Phone Virginia Oviedo MD Primary Care Provider [phone] Encounter Details DateTypeDepartmentCare Team (Latest Contact Info)Vdziwygrdvs13/15/2025External Result Encounter [facility] External Department Unsolicited Hung Thompson DO [address] [facility] [address] [place], [facility]11 Social History Tobacco UseTypesPacks/DayYears UsedDateSmoking Tobacco: Never Assessed Estimated Date of VziluqxlOtqkabolVex44/26/2026Based on Ultrasound, FHR: 175Sex and Gender InformationValueDate RecordedSex Assigned at BirthNot on fileLegal TyvBjincb97/15/2023 7:28 PM EDTGender IdentityNot on fileSexual OrientationNot on filedocumented as of this encounter Plan of Treatment DateTypeDepartmentCare Team (Latest Contact Info)Agyywokmkrr06/06/2026 11:30 AM ESTAncillary Procedure [facility]Z [address] [facility] [place] [address] 08/12/2025 9:30 AM ESTRoutine [facility] RODR[address]Z [address] [place] [address] Chante Queen, ASSISTANT HEAD CASHIER [address] [place] [address] documented as of this encounter Procedures Procedure NamePriorityDate/TimeAssociated DiagnosisCommentsCULTURE, URINE, SCNRDDOZmbmtyo45/15/2025 10:00 PM EST documented in this encounter Results * Urine culture (07/06/2025 10:00 PM EST)ComponentValueRef RangeTest Method Analysis TimePerformed AtPathologist SignatureFR NOTE?20,000 colonies/ml mixed ?bacterial skin contaminants ?2 Days 07/09/2025 11:26 AM [facility] CtrSpecimen (Source)Anatomical Location / LateralityCollection Method / VolumeCollection TimeReceived TimeUrine Urine specimen obtained by clean catch procedure / Ympxzpl3007/06/2025 10:00 PM EST07/07/2025 1:28 PM ESTComment:Clean-Voided Midstream Narrative [facility] - 07/09/2025 11:26 AM EST Diagnosis: Bleeding Comment: Authorizing ProviderResult TypeResult StatusCorey Jay DOLAB MICROBIOLOGY - GENERAL ORDERABLESFinal ResultPerforming OrganizationAddressCity/State/ZIP Code Phone Number [facility] [address] [place] [address], [facility] [address] [place] [address] documented in this encounter Visit Diagnoses Not on filedocumented in this encounter Care Teams Team MemberRelationshipSpecialtyStart DateEnd Date Virginia Oviedo MD [address] [place] [id number] PCP - GeneralFamily Medicine11/17/24documented as of this encounter
--- OUTSIDE RECORDS SUMMARY | 2025-07-14 11:22 | XMS_ITS | Clinical Summary ---
Author Organization [facility] Address [address], [address] [place] [address] Care Team Providers Care Warehouse Incentive Selector Name Role Phone Virginia Oviedo MD Primary Care Provider [phone] Allergies Active AllergyReactionsCriticalityNoted DateCommentsDoxycyclineHivesMedium 08/25/2023 Medications MedicationSigDispense QuantityRefillsLast FilledStart DateEnd DateStatus pantoprazole (PROTONIX) 20 MG tablet Take 1 tablet by mouth every morning (before breakfast) 90 tablet ctive naproxen (NAPROSYN) 375 MG tablet Take 1 tablet 2 times a days with food for 5 days, then 1 tablet 2 times a day as needed for pain 40 tablet 09/19/2023ctive Active Problems ProblemNoted DateDiagnosed OczvPgldlqgvaycnl54/03/2024 Resolved Problems ProblemNoted DateDiagnosed DateResolved LvhoCnhphrojooxzo30/05/202402/ Acute biliary pancreatitis without infection or pbccvede64/ Fiqjwsgyqtyh18/03/202402/ Social History Tobacco UseTypesPacks/DayYears UsedDateSmoking Tobacco: NeverSmokeless [...] Source: IP Abuse ScreeningAnswerDate RecordedRead-Only, Retired: Physical NglqaAldfur08/28/2024Read-Only, Retired: Verbal BpuwbUapltj30/28/2024 Read-Only, Retired: Emotional qylymCuyxxf84/28/2024Read-Only, Retired: Financial ZntlxQvfwqp38/28/2024ead-Only, Retired: Sexual lwhegHalczb90/28/2024 CommentsNoSex and Gender InformationValueDate RecordedSex Assigned at BirthNot on fileLegal FlsKjobli46/03/2024 3:23 AM ESTGender IdentityNot on fileSexual OrientationNot on file Last Filed Vital Signs Vital SignReadingTime TakenCommentsBlood Hnnsjfvu546/69010/04/2023 9:11 AM EDT Qzmse43372/14/2024 9:11 AM LKSRburuzvdgkb88.8 ??C (98.3 ??F)10/04/2023 9:11 AM EDTRespiratory Aomt006809/19/2023 4:00 PM ESTOxygen Gsclqsusmp28%09/19/2023 4:00 PM ESTInhaled Oxygen Concentration--Ccjsdg65.3 kg (144 lb)10/04/2023 9:11 AM EDT Koupzr423.7 cm (5' 8 )09/03/2023 1:21 PM ESTBody Mass Index21.902 1:21 PM EST Plan of Treatment Health MaintenanceDue DateLast DoneCommentsDepression Aeslqy9104/17/2009HIV screen 2012Hepatitis C hqsjgf5804/17/2015Pap smear2018DTaP/Tdap/Td vaccine (8 - Td or Tdap)5011/14/2014, 04/20/2008, 12/11/2001, Additional history existsFlu vaccine (#1)51COVID-19 Vaccine ( - season) 2025Hepatitis B lcymgfnMigqvpmwu14/08/1998, 1997, 1997Hib nyqeuaeEgxcelbdd33/27/1999, 1997, 1997, Additional history exists Polio lftkrfyRvagfnnar75/22/2002, 08/18/1998, 1997, Additional history existsVaricella jgimwjvYegwunclk17/29/2008, 08/18/1998HPV vaccineCompleted 10/29/2008, 06/25/2008, 04/20/2008Meningococcal (ACWY) vaccineCompleted [...] Date Virginia Oviedo MD [address] [place] [address] PCP - GeneralFamily Medicine08/25/23
--- OUTSIDE RECORDS SUMMARY | 2025-07-14 11:22 | XMS_ITS | Encounter Summary ---
Author Organization [facility] Address [address] [place] [address] Care Team Providers Care Airplane Designer Name Role Phone Virginia Oviedo MD Primary Care Provider [phone] Encounter Details DateTypeDepartmentCare Team (Latest Contact Info)Reyhrovtbhn70/23/2025Bamboo flowsheet [facility] RODR[facility]GUEZ [address] [place] [address] Hung Thompson DO [address] [facility] [address] [place], [facility]11 Social History Tobacco UseTypesPacks/DayYears UsedDateSmoking Tobacco: Never Assessed Estimated Date of MavqwpfnTcknxeplJsp92/26/2026Based on Ultrasound, FHR: 175Sex and Gender InformationValueDate RecordedSex Assigned at BirthNot on fileLegal BsuKbhpda54/15/2023 7:28 PM EDTGender IdentityNot on fileSexual OrientationNot on filedocumented as of this encounter Plan of Treatment DateTypeDepartmentCare Team (Latest Contact Info)Vfmrrxegrnt80/06/2026 11:30 AM ESTAncillary Procedure [facility] RODR[facility]GUEZ [address] [place] [address] 08/12/2025 9:30 AM ESTRoutine NOMAxel RODRÍGUEZ [address] [place] [address] Chante Queen, DES [address] [place] [address] documented as of this encounter Visit Diagnoses Not on filedocumented in this encounter Care Teams Team MemberRelationshipSpecialtyStart DateEnd Date Virginia Oviedo MD [address] [place] [address] PCP - GeneralFamily Medicine11/17/24documented as of this encounter
--- OUTSIDE RECORDS SUMMARY | 2025-07-14 11:22 | XMS_ITS | Encounter Summary ---
Author Organization [facility] Address [address] [place] [address] Care Team Providers Care Patient Care Technician Name Role Phone Virginia Oviedo MD Primary Care Provider [phone] Encounter Details DateTypeDepartmentCare Team (Latest Contact Info)Ymesmdgornr25/17/2025Telephone [facility] [address] [place] [address] Hung Thompson, [address] [place], [facility]11 Social History Tobacco UseTypesPacks/DayYears UsedDateSmoking Tobacco: Never Assessed Estimated Date of YfaqkhpbQtmrnxssHlw21/26/2026ased on Ultrasound, FHR: 175Sex and Gender InformationValueDate RecordedSex Assigned at BirthNot on fileLegal YtxHlkehi95/15/2023 7:28 PM EDTGender IdentityNot on fileSexual OrientationNot on filedocumented as of this encounter Miscellaneous Notes * Telephone Encounter - Linda Belle LPN - 07/08/2025 3:58 PM EST Patient was called back and she was advised that Ultrasound is waiting for Radiologist to read report and he is on vacation and we reached to see if anything radiologist can read this. Patient statesshe does have appointment next week and wants to make sure this can be gone over with her. Patient advised we have reached out so hope to have results by that appointment. * Telephone Encounter - Linda Belle LPN - 07/08/2025 1:36 PM EST Patient was called to be advised of the results and was asking about the Anatomy scan. Patient was advised will have to verify with neurology technician on these results. Patient was advised we will have the placenta in 4 weeks when we get anatomy back and if need to do that we can schedule at that time. PVU and she was transferred to clerical to schedule. documented in this encounter Plan of Treatment DateTypeDepartmentCare Team (Latest Contact Info)Fnyirobsouv95/06/2026 11:30 AM ESTAncillary Procedure [facility] JIANGN [address] [place] [address] 08/12/2025 9:30 AM ESTRoutine [facility] JIANGN [address] [place] [address] Chante Queen, INSPECTOR PACKAGER [address] [place] [address] NameTypePriorityAssociated DiagnosesOrder ScheduleUS OB limited 1+ fetuses ImagingRoutine Low-lying placenta (HHS-HCC) Expected: 07/08/2025, Expires: 10/06/2025documented as of this encounter Visit Diagnoses Diagnosis Low-lying placenta (HHS-HCC) Hemorrhage from placenta previa, unspecified as to episode of care documented in this encounter Care Teams Team MemberRelationshipSpecialtyStart DateEnd Date Virginia Oviedo MD [address] [place] [address] PCP - GeneralFamily Medicine11/17/24documented as of this encounter
--- OUTSIDE RECORDS SUMMARY | 2025-07-14 11:22 | XMS_ITS | Encounter Summary ---
Author Organization [facility] Address [address] [place] [address] Care Team Providers Care Boiler Operators Supervisor Name Role Phone Virginia Oviedo MD Primary Care Provider [phone] Encounter Details DateTypeDepartmentCare Team (Latest Contact Info)Cbahvrbzxkn75/15/2025Clinisync Result Encounter [facility] External Department Unsolicited Sofía Thompson, [address] [facility] [address] [place], [facility]11 Social History Tobacco UseTypesPacks/DayYears UsedDateSmoking Tobacco: Never Assessed Estimated Date of ZxleamdyZhcwfaomZvy26/26/2026Based on Ultrasound, FHR: 175Sex and Gender InformationValueDate RecordedSex Assigned at BirthNot on fileLegal EncEirryk51/15/2023 7:28 PM EDTGender IdentityNot on fileSexual OrientationNot on filedocumented as of this encounter Plan of Treatment DateTypeDepartmentCare Team (Latest Contact Info)Xfocnsdkpku77/06/2026 11:30 AM ESTAncillary Procedure [facility] RODR[address]GUEZ [address] [place] [address] 08/12/2025 9:30 AM ESTRoutine [facility] RODR[facility]GUEZ [address] [facility] [place] [address] Chante Queen, VEHICLE SALES PROFESSIONAL [address] [place] [address] documented as of this encounter Procedures Procedure NamePriorityDate/TimeAssociated DiagnosisCommentsUS OB CERVICAL LENGTH 07/06/2025 11:52 PM EST documented in this encounter Results * US OB CERVICAL LENGTH (07/06/2025 11:52 PM EST)Anatomical RegionLaterality ModalityOtherSpecimen (Source)Anatomical Location / LateralityCollection Method / VolumeCollection TimeReceived Time07/06/2025 11:52 PM EST Narrative 07/06/2025 11:55 PM EST [facility] ?[address] ? [place] [address] ? Ultrasound Report ? Signed ? Patient: JOSE MARIA CORONA S M ?MR#: [id number] ?? : 1995 ?Acct:[id number] ?? Age/Sex: 30 / F ?ADM Date: 07/06/25 ?? Loc: [facility]O ? Attending Dr: Sofía Thompson D.O. ? Ordering Physician: Sofía Thompson D.O. ?? Date of Service: 07/06/25 ?? Procedure(s): US OB cervical length ?? Accession Number(s): [id number] ? cc: Sofía Thompson D.O.; Physician,Non-Staff M.DWojciech ? [facility] ? [facility]. [facility] ? [place] [address] ? Patient Name: ?? JOSE MARIA CORONA ? MRN: [facility]:[id number] ? date: 1995 ?Sex: F ?? Assigned Patient Location: [facility] ?? Current Patient Location: [facility] ?? Accession/Order Number: [id number] ?? Exam Date: 07/06/2025 ??23:15 ?Report Date: [...] M.D. ??07/06/2025 11:52 PM ? Dictation Location: [facility]--17 ? Electronically authenticated by: [id number] ??Y ?? Date: 07/06/2025 ??23:52 ? Dictated By: ?Kenroy Alaniz M.D. ? Signed By: ?07/06/255 ? DD/ 2352 ? TD/TT: ? Sky Diver: Procedure Note Radiology, Radiologist, MD - 07/06/2025 [place] [address] Ultrasound Report Signed Patient: JOSE MARIA CORONA MMR#: [id number] : 1995Acct:[id number] Age/Sex: 30 / FADM Date: 07/06/25 Loc: [facility]BNV Attending Dr: Sofía Thompson D.O. Ordering Physician: Sofía Thompson D.O. Date of Service: 07/06/25 Procedure(s): US OB cervical length Accession Number(s): [id number] cc: Sofía Thompson D.O.; Physician,Non-Staff M.Briana The [address] [address] Patient Name: JOSE MARIA CORONA MRN: [facility]:[id number] date: 1995 Sex: F Assigned Patient Location: [facility] Current Patient Location: [facility] Accession/Order Number: [id number] Exam Date: 07/06/2025 23:15 Report Date: 07/06/2025 [...] Alaniz M.D. 07/06/2025 11:52 PM Dictation Location: [employer] Electronically authenticated by: [id number] Y Date: 3:52 Dictated By: Kenroy Alaniz M.D. Signed By:07/06/255 DD/ 51 TD/TT: Sky Diver: Authorizing ProviderResult TypeResult StatusCorey Jay DOCLINISYNC IMAGINGFinal Result documented in this encounter Visit Diagnoses Not on filedocumented in this encounter Care Teams Team MemberRelationshipSpecialtyStart DateEnd Date Virginia Oviedo MD [address] [place] [address] PCP - GeneralFamily Medicine11/17/24documented as of this encounter
[2025-07-15 12:08] LABS: Rapid Plasma Reagin, Quant Non Reactive titer (NonRea<1:1)
[2025-07-17 18:08] LABS: Age Gdln ACOG Testing Note (.); IGP, rfx Aptima HPV ASCU Note (.)
== END 2025-07-14 11:19 | disposition home or self-care (01) ==
LOC: LAB 11:20
PROVIDERS: Visit Provider Physician Assistant
DX: Z34.90 Encounter for supervision of normal pregnancy, unspecified, unspecified trimester (principal); N92.6 Irregular menstruation, unspecified
CPT/HCPCS: 36415; 86592; 87340; 88175

== ENCOUNTER 2025-07-14 19:50 | Outpatient (REF) | payer MEDICAID, SELFPAY ==
--- OUTSIDE RECORDS SUMMARY | 2025-06-30 09:00 | XMS_ITS | Encounter Summary ---
Author Organization [facility] Address [address] [place] [address] Care Team Providers Care Epidemiology Internship Name Role Phone Virginia Oviedo MD Primary Care Provider [phone] Encounter Details DateTypeDepartmentCare Team (Latest Contact Info)Dgnngsqxgfy13/09/2025 9:00 AM ESTAncillary Procedure [facility] [address] [place] [address] Screening, , for anatomic survey ([facility]) Social History Tobacco UseTypesPacks/DayYears UsedDateSmoking Tobacco: Never Assessed Estimated Date of ZjvneqtxKfkimdrrXeq32/26/2026Based on Ultrasound, FHR: 175Sex and Gender InformationValueDate RecordedSex Assigned at BirthNot on fileLegal ZfhUxpkrj85/15/2023 7:28 PM EDTGender IdentityNot on fileSexual OrientationNot on filedocumented as of this encounter Plan of Treatment DateTypeDepartmentCare Team (Latest Contact Info)Jafofyydrrb30/06/2026 11:30 AM ESTAncillary Procedure [facility] [address] [place] [address] 08/12/2025 9:30 AM ESTRoutine [facility] [address] [place] [address] Chante Queen, TELEVISION SCRIPT WRITER [address] [place] [address] documented as of this encounter Procedures Procedure NamePriorityDate/TimeAssociated DiagnosisCommentsUS OB 14+ WEEKS ANATOMY LVGBQoixkxq67/09/2025 10:09 AM EST Screening, , for anatomic survey ([facility]) documented in this encounter Results * US [...] Akil Orta MD Authorizing ProviderResult TypeResult StatusAmy [facility] US PROCEDURES Final Result documented in this encounter Visit Diagnoses Diagnosis Screening, , for anatomic survey ([facility]) Encounter for anatomic survey documented in this encounter Care Teams Team MemberRelationshipSpecialtyStart DateEnd Date Virginia Oviedo MD [address] [place] [address] PCP - GeneralFamily Medicine11/17/24documented as of this encounter
--- OUTSIDE RECORDS SUMMARY | 2025-07-14 09:50 | XMS_ITS | Encounter Summary ---
Author Organization [facility] Address [address] [place] [address] Care Team Providers Care Certified Meeting Professional Name Role Phone Virginia Oviedo MD Primary Care Provider [phone] Reason for Visit * ReasonCommentsRoutine VisitWell Women VisitSTI Screening Encounter Details DateTypeDepartmentCare Team (Latest Contact Info)Rzkiktukvwa43/23/2025 9:50 AM ESTRoutine [facility] [address] [place] [phone] Hung Thompson DO [address] [facility] [address] [place] [phone] Screening, , for anatomic survey ([facility]); Well woman exam with routine gynecological exam; Second trimester ([facility]); 22 weeks gestation of ([facility]); Vaginal discharge; STD exposure; Upper respiratory tract infection, unspecified type Social History Tobacco UseTypesPacks/DayYears UsedDateSmoking Tobacco: Never Assessed Estimated Date of TtkgsemsIjfglbwzVgm57/26/2026Based on Ultrasound, FHR: 175Sex and Gender InformationValueDate RecordedSex Assigned at BirthNot on fileLegal MpzQccgbm53/15/2023 7:28 PM EDTGender IdentityNot on fileSexual OrientationNot on filedocumented as of this encounter Last Filed Vital Signs Vital SignReadingTime TakenCommentsBlood Ojzbtmfw967/7007/14/2025 10:27 AM EST Pulse--Temperature--Respiratory Rate--Oxygen Saturation--Inhaled Oxygen Concentration--Wygeqr18.7 kg (169 lb 1.9 oz)07/14/2025 10:27 AM ESTHeight--Body Mass Index26.4904 12:00 PM EDTdocumented in this encounter Progress Notes * Candida Lao LPN - 07/14/2025 9:50 AM EST Reason for Appointment: Patient ID: Jose Maria Corona is a 30 y.o. female who presents for Routine Visit, Well Women Visit, and STI Screening Patient presents today for Annual Exam., STD Check., and Return OB appointment. MEDICATIONS Current Outpatient Medications Medication Instructions aspirin 81 mg, Daily docusate sodium (COLACE) 250 mg, Daily Vit-Fe Fumarate-FA ( VITAMIN PO) Daily ALLERGIES Allergies Allergen Reactions Doxycycline Hives Other Reaction(s): hives Tetracycline Tetracyclines & Related PROBLEMS Active Ambulatory Problems Diagnosis Date Noted No Active Ambulatory Problems Resolved Ambulatory Problems Diagnosis Date Noted No Resolved Ambulatory Problems No Additional Past Medical History HISTORY PAST MEDICAL HISTORY SOCIAL HISTORY History reviewed. No pertinent past medical history. Social History Tobacco Use Smoking status: Not on file Smokeless tobacco: Not on file Substance Use Topics Alcohol use: Not on file Drug use: Not on file FAMILY HISTORY No family history on file. SURGICAL HISTORY Past Surgical History: Procedure Laterality Date DILATION AND CURETTAGE OF UTERUS 02/06/2025 D&C Hysteroscopy REVIEW OF SYSTEMS Review of Systems: Review of Systems Constitutional: Negative. HENT: Negative. Eyes: Negative. Respiratory: Negative. Cardiovascular: Negative. Gastrointestinal: Negative. Genitourinary: Negative. Musculoskeletal: Negative. Skin: Negative. Neurological: Negative. All other systems reviewed and are negative. Hematological: Negative. Endocrine: Negative. Allergic/Immunologic: Negative. OBJECTIVE Objective: Physical Exam Constitutional: Appearance: Normal appearance. She is well-developed. Genitourinary: Vulva normal. Cardiovascular: Rate and Rhythm: Normal rate and regular rhythm. Pulmonary: Effort: Pulmonary effort is normal. Breath sounds: Normal breath sounds. Abdominal: General: Bowel sounds are normal. There is no distension. Palpations: Abdomen is soft. Tenderness: There is no abdominal tenderness. There is no guarding or rebound. Musculoskeletal: General: No swelling. Normal range of motion. Right lower leg: No edema. Left lower leg: No edema. Neurological: Mental Status: She is alert and oriented to person, place, and time. Skin: General: Skin is warm and dry. Psychiatric: Mood and Affect: Mood normal. Behavior: Behavior normal. Vitals and nursing note reviewed. Exam conducted with a construction equipment mechanic present. Vitals: Estimated body mass index is 26.49 kg/m?? as calculated from the following: Height as of 11/17/22: 5' 7 . Weight as of this encounter: 169 lb 1.9 oz. BP: 114/70 Patient's last menstrual period was 02/13/2025. Assessment/Plan ICD-10-CM 1. Screening, , for anatomic survey ([facility]) Z36.89 US OB 14+ weeks anatomy scan US OB 14+ weeks anatomy scan 2. Well woman exam with routine gynecological exam Z01.419 Pap Smear 3. Second trimester ([facility]) Z34.92 POCT urinalysis dipstick manually resulted Alpha fetoprotein, maternal Alpha fetoprotein, maternal 4. 22 weeks gestation of ([facility]) Z3A.22 POCT urinalysis dipstick manually resulted Alpha fetoprotein, maternal Alpha fetoprotein, maternal 5. Vaginal discharge N89.8 SURESWAB(R) ADVANCED VAGINITIS PLUS, TMA 6. STD exposure Z20.2 CHLAMYDIA TRACHOMATIS (GENITO/STI) Neisseria gonorrhea DNA probe, direct Assessment/Plan Return OB/Annual Exam: Patient presents today for a annual exam/routine obstetrics appointment. Patient is currently 75d6ulybgvwpj. Patient states she is doing well but has complaints of nausea in the morning. Pap and cultures was obtained without difficulty and patient was given orders for anatomy scan and msAFP to be obtained. Orders Placed This Encounter Procedures US OB 14+ weeks anatomy scan CHLAMYDIA TRACHOMATIS (GENITO/STI) Neisseria gonorrhea DNA probe, direct Alpha fetoprotein, maternal POCT urinalysis dipstick manually resulted Follow Up: Patient is to schedule annual exam for next year and return to office in 4 weeks for OB appointment. Documented by Candida Lao LPN on behalf of: Hung Thompson DO documented in this encounter Plan of Treatment DateTypeDepartmentCare Team (Latest Contact Info)Hcnwhhzshjn91/06/2026 11:30 AM ESTAncillary Procedure [facility] [address] [place] [address] 08/12/2025 9:30 AM ESTRoutine [facility] [address] [place] [phone] Chante Queen, ENVIRONMENTAL SCIENTIST [address] [facility] [place] [address] NameTypePriorityAssociated DiagnosesOrder ScheduleSURESWAB(R) ADVANCED VAGINITIS PLUS, TMAPathology and CytologyRoutine Vaginal discharge Ordered: 07/14/2025HLAMYDIA TRACHOMATIS (GENITO/STI)LabRoutine STD exposure Ordered: 07/14/2025Neisseria gonorrhea DNA probe, directLabRoutine STD exposure Ordered: 07/14/2025Pap SmearPathology and CytologyRoutine Well woman exam with routine gynecological exam Ordered: 07/14/2025US OB 14+ weeks anatomy scanImagingRoutine Screening, , for anatomic survey ([facility]) Expected: 07/14/2025, Expires: 10/12/2025lpha fetoprotein, maternalLabRoutine Second trimester ([facility]) 22 weeks gestation of ([facility]) Expected: 07/14/2025 (Approximate), Expires: 01/12/2026documented as of this encounter Procedures Procedure NamePriorityDate/TimeAssociated DiagnosisCommentsPOCT URINALYSIS LFFLGUWRCqjigeq28/23/2025 10:38 AM EST Second trimester ([facility]) 22 weeks gestation of ([facility]) documented in this encounter Results * [...] Location / LateralityCollection Method / VolumeCollection TimeReceived IifvBdznu44/23/2025 10:38 AM EST Narrative Authorizing ProviderResult TypeResult StatusCorey Jay DOPOINT OF CARE TEST ENTER/EDIT ORDERABLESFinal Result documented in this encounter Visit Diagnoses Diagnosis Screening, , for anatomic survey ([facility]) Encounter for anatomic survey Well woman exam with routine gynecological exam Routine gynecological examination Second trimester ([facility]) state, incidental 22 weeks gestation of ([facility]) Vaginal discharge Leukorrhea, not specified as infective STD exposure Upper respiratory tract infection, unspecified type documented in this encounter Care Teams Team MemberRelationshipSpecialtyStart DateEnd Date Virginia Oviedo MD [address] [place] [address] PCP - GeneralFamily Medicine11/17/24documented as of this encounter
--- OUTSIDE RECORDS SUMMARY | 2025-07-14 19:54 | XMS_ITS | Clinical Summary ---
Author Organization [facility] [facility] tem Address [facility] [address] [place] [address] Care Team Providers Care Diesel Technology Instructor Name Role Phone David Vicenteash MARTINEZ-ASP NET PROGRAMMER Primary Care Provider [phone] Allergies Active AllergyReactionsCriticalityNoted GvhwLyptpfnpTzqeewhsyltfd87/10/2021 Medications MedicationSigDispense QuantityRefillsLast FilledStart DateEnd DateStatus ondansetron ODT (ZOFRAN-ODT) 4 mg disintegrating tablet Dissolve 4 mg on tongue every 6 (six) hours as needed for nausea or vomiting. Active vit no.157-uqaf-aygsq ( VITAMIN) 27 mg iron- 800 mcg tablet Take 1 tablet by mouth daily.Active Family History Medical HistoryRelationNameCommentsDiabetesFatherHypertensionFatherAneurysm Maternal GrandmotherbrainHypertensionMotherHeart diseaseSisterRelationNameStatus CommentsFatherMaternal GrandmotherMotherSister Social History Tobacco UseTypesPacks/DayYears UsedDateSmoking Tobacco: NeverChildcareAnswerDate AuwjluarFznjlfctrCcxdfbm72/09/2021EmploymentAnswerDate RecordedEmploymentUnknown 1Purpose - LifeAnswerDate RecordedPurpose and direction in lifeUnknown 1CommentsNoSex and Gender InformationValueDate RecordedSex Assigned at BirthNot on fileLegal KviXhlyva00/09/2021 2:55 PM ESTGender Identity Not on fileSexual OrientationNot on file Plan of Treatment Health MaintenanceDue DateLast DoneCommentsDepression Zkuhkbnfn31/26/2009Tobacco Qqcfvycyw58/26/2009dult BMI Xuisekhjr92/26/2015Pap Smear2018DTaP,Tdap and Td Vaccines (2 - Td or Tdap)5011/14/2014Influenza Mmezmzs8403/23/2025 Medical Devices [place] [address] MemberSubscriberPlan / Payer (Effective 2019-Present)Name:Jose Maria Corona Relation to Subscriber:ChildName:DANYELLE CORONA Date of :1974 (Home) Address: [address] [place] [address] Payer ID:Not on file Type:Not on file Address: [place] [id number] Care Teams Team MemberRelationshipSpecialtyStart DateEnd Date Tg Vicente APRN-RONALD [address] [place] [address] PCP - GeneralNurse Practitioner11/16/20
--- OUTSIDE RECORDS SUMMARY | 2025-07-14 19:54 | XMS_ITS | Encounter Summary ---
Author Organization [facility] Address [address] [place] [address] Care Team Providers Care Fluoroscope Operator Name Role Phone Virginia Oviedo MD Primary Care Provider [phone] Encounter Details DateTypeDepartmentCare Team (Latest Contact Info)Feesbbqalgm17/15/2025External Result Encounter [facility]OMS External Department Unsolicited Hung Thompson DO [address] [facility] [address] [place], [facility]11 Social History Tobacco UseTypesPacks/DayYears UsedDateSmoking Tobacco: Never Assessed Estimated Date of YogwgmaqUehlujkeZoa86/26/2026Based on Ultrasound, FHR: 175Sex and Gender InformationValueDate RecordedSex Assigned at BirthNot on fileLegal JmsMozwkg36/15/2023 7:28 PM EDTGender IdentityNot on fileSexual OrientationNot on filedocumented as of this encounter Plan of Treatment DateTypeDepartmentCare Team (Latest Contact Info)Wjjkjbmtasd37/06/2026 11:30 AM ESTAncillary Procedure [facility] RODRÍGUEZ [address] [facility] [address] 08/12/2025 9:30 AM ESTRoutine [facility] RODRÍGUEZ [address] [place] [address] Chante Queen, CONVENTION WORKER [address] [place] [address] documented as of this encounter Procedures Procedure NamePriorityDate/TimeAssociated DiagnosisCommentsCULTURE, URINE, ZQGDAPGAmxfosa72/15/2025 10:00 PM EST documented in this encounter Results * Urine culture (07/06/2025 10:00 PM EST)ComponentValueRef RangeTest Method Analysis TimePerformed AtPathologist SignatureFR NOTE?20,000 colonies/ml mixed ?bacterial skin contaminants ?2 Days 07/09/2025 11:[address] [facility] CtrSpecimen (Source)Anatomical Location / LateralityCollection Method / VolumeCollection TimeReceived TimeUrine Urine specimen obtained by clean catch procedure / Jkzeule8407/06/2025 10:00 PM EST07/07/2025 1:28 PM ESTComment:Clean-Voided Midstream Narrative [facility] - 07/09/2025 11:26 AM EST Diagnosis: Bleeding Comment: Authorizing ProviderResult TypeResult StatusCorey Jay DOLAB MICROBIOLOGY - GENERAL ORDERABLESFinal ResultPerforming OrganizationAddressCity/State/ZIP Code Phone Number [facility] [address] [place] [address], [facility] [address] [place] [address] documented in this encounter Visit Diagnoses Not on filedocumented in this encounter Care Teams Team MemberRelationshipSpecialtyStart DateEnd Date Virginia Oviedo MD [address] [place] [id number] PCP - GeneralFamily Medicine11/17/24documented as of this encounter
--- OUTSIDE RECORDS SUMMARY | 2025-07-14 19:54 | XMS_ITS | Encounter Summary ---
Author Organization [facility] Address [address] [place] [address] Care Team Providers Care Firer Watertender Name Role Phone Virginia Oviedo MD Primary Care Provider [phone] Encounter Details DateTypeDepartmentCare Team (Latest Contact Info)Xuwjwzfqpiv78/23/2025Bamboo flowsheet [facility] [address] [place] [address] Hung Thompson DO [address] [facility] [address] [place], [facility]11 Social History Tobacco UseTypesPacks/DayYears UsedDateSmoking Tobacco: Never Assessed Estimated Date of RtjaqzckYrfthipqBtl00/26/2026Based on Ultrasound, FHR: 175Sex and Gender InformationValueDate RecordedSex Assigned at BirthNot on fileLegal WjmLgoodo44/15/2023 7:28 PM EDTGender IdentityNot on fileSexual OrientationNot on filedocumented as of this encounter Plan of Treatment DateTypeDepartmentCare Team (Latest Contact Info)Eciqdwabmoz08/06/2026 11:30 AM ESTAncillary Procedure [facility] [address] [address] [place] [address] 08/12/2025 9:30 AM ESTRoutine [facility] [address] [place] [address] Chante Queen, DES [address] [place] [address] documented as of this encounter Visit Diagnoses Not on filedocumented in this encounter Care Teams Team MemberRelationshipSpecialtyStart DateEnd Date Virginia Oviedo MD [address] [place] [address] PCP - GeneralFamily Medicine11/17/24documented as of this encounter
--- OUTSIDE RECORDS SUMMARY | 2025-07-14 19:54 | XMS_ITS | Encounter Summary ---
Author Organization [facility] Address [address] [place] [address] Care Team Providers Care Machine Cloth Measurer Name Role Phone Virginia Oviedo MD Primary Care Provider [phone] Encounter Details DateTypeDepartmentCare Team (Latest Contact Info)Tggewxsqtoa57/15/2025Clinisync Result Encounter [facility] External Department Unsolicited Sofía Thompson, [address] [facility] [address] Lili [place], [facility]11 Social History Tobacco UseTypesPacks/DayYears UsedDateSmoking Tobacco: Never Assessed Estimated Date of IjwsygixEoonypgxHsm09/26/2026Based on Ultrasound, FHR: 175Sex and Gender InformationValueDate RecordedSex Assigned at BirthNot on fileLegal MrtHufmgu54/15/2023 7:28 PM EDTGender IdentityNot on fileSexual OrientationNot on filedocumented as of this encounter Plan of Treatment DateTypeDepartmentCare Team (Latest Contact Info)Zutcqvsaccf51/06/2026 11:30 AM ESTAncillary Procedure [facility] [address] [place] [address] 08/12/2025 9:30 AM ESTRoutine [facility] [address] [place] [address] Chante Queen, TEST RIDER [address] [place] [address] documented as of this encounter Procedures Procedure NamePriorityDate/TimeAssociated DiagnosisCommentsUS OB CERVICAL LENGTH 07/06/2025 11:52 PM EST documented in this encounter Results * US OB CERVICAL LENGTH (07/06/2025 11:52 PM EST)Anatomical RegionLaterality ModalityOtherSpecimen (Source)Anatomical Location / LateralityCollection Method / VolumeCollection TimeReceived Time07/06/2025 11:52 PM EST Narrative 07/06/2025 11:55 PM EST [facility] ?[address] ? [place] [address] ? Ultrasound Report ? Signed ? Patient: JOSE MARIA CORONA S M ?MR#: [id number] ?? : 1995 ?Acct:[id number] ?? Age/Sex: 30 / F ?ADM Date: 07/06/25 ?? Loc: [facility] ? Attending Dr: Sofía Thompson D.O. ? Ordering Physician: Sofía Thompson D.O. ?? Date of Service: 07/06/25 ?? Procedure(s): US OB cervical length ?? Accession Number(s): [id number] ? cc: Sofía Thompson D.O.; Physician,Non-Staff M.DWojciech ? [facility] ? [facility]. [facility] ? [place] [address] ? Patient Name: ?? JOSE MARIA CORONA ? MRN: [facility]:[id number] ? date: 1995 ?Sex: F ?? Assigned Patient Location: [facility] ?? Current Patient Location: [facility] ?? Accession/Order Number: [id number] ?? Exam Date: 07/06/2025 ??23:15 ?Report Date: [...] M.D. ??07/06/2025 11:52 PM ? Dictation Location: [facility]--17 ? Electronically authenticated by: [id number] ??Y ?? Date: 07/06/2025 ??23:52 ? Dictated By: ?Kenroy Alaniz M.D. ? Signed By: ?07/06/255 ? DD/ 2352 ? TD/TT: ? Edge Kitter: Procedure Note Radiology, Radiologist, MD - 07/06/2025 [place] [address] Ultrasound Report Signed Patient: JOS EMARIA CORONA MMR#: [id number] : 1995Acct:[id number] Age/Sex: 30 / FADM Date: 07/06/25 Loc: [facility] Attending Dr: Sofía Thompson D.O. Ordering Physician: Sofía Thompson D.O. Date of Service: 07/06/25 Procedure(s): US OB cervical length Accession Number(s): [id number] cc: Sofía Thompson D.O.; Physician,Non-Staff M.Briana The [address] [address] Patient Name: JOSE MARIA CORONA MRN: [id number] date: 1995 Sex: F Assigned Patient Location: [facility] Current Patient Location: [facility] Accession/Order Number: [id number] Exam Date: 07/06/2025 23:15 Report Date: 07/06/2025 [...] Alaniz M.D. 07/06/2025 11:52 PM Dictation Location: in2nite Electronically authenticated by: [id number] Y Date: 3:52 Dictated By: Kenroy Alaniz M.D. Signed By:07/06/255 DD/ 51 TD/TT: Edge Kitter: Authorizing ProviderResult TypeResult StatusCorey Jay DOCLINISYNC IMAGINGFinal Result documented in this encounter Visit Diagnoses Not on filedocumented in this encounter Care Teams Team MemberRelationshipSpecialtyStart DateEnd Date Virginia Oviedo MD [address] [place] [address] PCP - GeneralFamily Medicine11/17/24documented as of this encounter
--- OUTSIDE RECORDS SUMMARY | 2025-07-14 19:54 | XMS_ITS | Encounter Summary ---
Author Organization [facility] Address [address] [place] [address] Care Team Providers Care Steam Shovel Oiler Name Role Phone Virginia Oviedo MD Primary Care Provider [phone] Encounter Details DateTypeDepartmentCare Team (Latest Contact Info)Xkzxqbsjxfo85/15/2025Clinisync Result Encounter [facility] External Department Unsolicited Hung Thompson, [address] [facility] [address] L[place], [facility]11 Social History Tobacco UseTypesPacks/DayYears UsedDateSmoking Tobacco: Never Assessed Estimated Date of SaznzkeaRltzywkwFgu17/26/2026Based on Ultrasound, FHR: 175Sex and Gender InformationValueDate RecordedSex Assigned at BirthNot on fileLegal UilQfizwt37/15/2023 7:28 PM EDTGender IdentityNot on fileSexual OrientationNot on filedocumented as of this encounter Plan of Treatment DateTypeDepartmentCare Team (Latest Contact Info)Zcgrmrvxvuu39/06/2026 11:30 AM ESTAncillary Procedure [facility] [address] [place] [address] 08/12/2025 9:30 AM ESTRoutine [facility] [address] [facility] [place] [address] Chante Queen, ROLLER CHECKER [address] [place] [address] documented as of this encounter Procedures Procedure NamePriorityDate/TimeAssociated DiagnosisCommentsURINE CULTURE - [facility] Dvgzqbb2207/06/2025 10:00 PM EST [facility] UA (CLEAN/CATCH) ELECTROMECHANICAL TECHNOLOGIST/MICRO IF IND.Oxwenpw8007/06/2025 10:00 PM EST documented in this encounter [...] [facility] * (ABNORMAL) [facility] UA (CLEAN/CATCH) ELECTROMECHANICAL TECHNOLOGIST/MICRO IF IND. (07/06/2025 10:00 PM EST) ComponentValueRef [...] Oviedo MD [address] [place] [address] PCP - GeneralFamily Medicine11/17/24documented as of this encounter
--- OUTSIDE RECORDS SUMMARY | 2025-07-14 19:54 | XMS_ITS | Clinical Summary ---
Author Organization [facility] Address [address] [place] [address] Care Team Providers Care Agriculture Sales Account Manager Name Role Phone Virginia Oviedo MD Primary Care Provider Allergies Active AllergyReactionsCriticalityNoted DateCommentsDoxycyclineHivesMedium 08/25/2023 Other Reaction(s): hives Nrafzqvcxszo66/10/2021Tetracyclines & Urevohz2509/29/2020 Medications MedicationSigDispense QuantityRefillsLast FilledStart DateEnd DateStatus Vit-Fe Fumarate-FA ( VITAMIN PO) Take by mouth DailyActive aspirin 81 MG EC tablet Take 81 mg by mouth DailyActive docusate sodium (Colace) 250 MG capsule Take 250 mg by mouth DailyActive azithromycin (Zithromax Z-Krystian) 250 MG tablet Indications:Upper respiratory tract infection, unspecified typeAs directed 6 tablet 5Active Encounters DateTypeDepartmentCare OaljWxgdjmqwsvr86/23/2025 9:50 [place] [address] Sofía Thompson DO Screening, , for anatomic survey ([facility]); Well woman exam with routine gynecological exam; Second trimester ([facility]); 22 weeks gestation of ([facility]); Vaginal discharge; STD exposure; Upper respiratory tract infection, unspecified type07/14/2025amboo flowsheet [facility] [address] [place] [address] Sofía Thompson DO 07/08/2025Telephone [facility] [phone] Sofía Thompson, DO 07/06/2025bstract [facility] [address] [place] [address] Sofía Thompson, DO 07/06/2025External Result Encounter NOMS External Department Unsolicited Sofaí Thompson, DO 07/06/2025linisync Result Encounter NOMS External Department Unsolicited Sofía Thompson, DO 07/06/2025linisync Result Encounter NOMS External Department Unsolicited Sofía Thompson, DO 06/30/2025 9:00 AM ESTAncillary Procedure [facility] [place] [address] Screening, , for anatomic survey ([facility])06/15/2025 10:40 AM EST Routine [facility] [place] [phone] Sera Lau PA Diabetes mellitus screening; Second trimester ([facility]); 18 weeks gestation of ([facility]); STD exposure; Well woman exam with routine gynecological exam; Screening, , for anatomic survey ([facility]); Missed menses; , unspecified gestational age ([facility])5Bamboo flowsheet [place] [phone] Sera Lau PA 06/06/2025linisync Result Encounter NOMS External Department Unsolicited Sofía Thompson, DO 05/18/2025 10:10 [place] [address] Sofía Thompson, DO Second trimester ([facility]); 14 weeks gestation of ([facility]); Diabetes mellitus zkzhjytpa56/27/2025Telephone [facility] [address] [facility] [place] [address] Catherine Canales MA 05/18/2025amboo flowsheet [facility] JIANGN Anisa [facility] [place] [address] Sofía Thompson, 5Abstract [facility] [place] [phone] Sofía Thompson, 5Clinisync Result Encounter NOMS External Department Unsolicited Sofía Thompson, 05/07/2025Patient Outreach [facility] [address] [place] [address] Sera Cabezas LPN 04/30/2025bstract [facility] [address] [place] [address] Sera Cabezas LPN 04/16/2025 1:30 PM EDTInitial [place] [address] GA: 94d04/16/2025 1:00 PM EDTAncillary Procedure [place] [address] Missed menses; Positive urine test ([facility])from Last 3 Months Social History Tobacco UseTypesPacks/DayYears UsedDateSmoking Tobacco: Never Assessed Estimated Date of MszrtpiyNomiatraKws98/26/2026ased on Ultrasound, FHR: 175Sex and Gender InformationValueDate RecordedSex Assigned at BirthNot on fileLegal HrqYwnrtv58/15/2023 7:28 PM EDTGender IdentityNot on fileSexual OrientationNot on file Last Filed Vital Signs Vital SignReadingTime TakenCommentsBlood Iaqfilqd610/7012 10:27 AM EST Pulse--Temperature--Respiratory Rate--Oxygen Saturation--Inhaled Oxygen Concentration--Uavqtq09.7 kg (169 lb 1.9 oz)07/14/2025 10:27 AM QDDEddjia886.2 cm (5' 7 )11/17/2022 12:00 PM EDTBody Mass Index26.49011/17/2022 12:00 PM EDT Plan of Treatment DateTypeDepartmentCare Team (Latest Contact Info)Otgqdkggegu07/06/2026 11:30 AM ESTAncillary Procedure [facility] [address] [facility] [place] [phone] 08/12/2025 9:30 AM ESTRoutine [facility] [address] [facility] [address] Chante Queen, MANAGER FINE DINING [address] [place] [phone] Health MaintenanceDue DateLast DoneCommentsInfluenza Vaccine (#1)03/23/2025 04/20/2008, 04/24/2007Pneumococcal Vaccine: Pediatrics (0 to 5 Years) and At- Risk Patients (6 to 64 Years)Aged OutNo longer eligible based on patient's age to complete this topic Procedures Procedure NamePriorityDate/TimeAssociated DiagnosisCommentsPOCT URINALYSIS QWJQGALAZhkuupz08/23/2025 10:38 AM EST Second trimester ([facility]) 22 weeks gestation of ([facility]) US OB CERVICAL UQCKRI8907/06/2025 11:52 PM EST URINE CULTURE - JFOIKrejvmt42/15/2025 10:00 PM EST [facility] UA (CLEAN/CATCH) CASTING INSPECTOR/MICRO IF IND.Jjjmjnk8007/06/2025 10:00 PM EST CULTURE, URINE, OWZNCDZIqbgzsh39/15/2025 10:00 PM EST US OB 14+ WEEKS ANATOMY OIHVXoozoyc50/09/2025 10:09 AM EST Screening, , for anatomic survey ([facility]) POCT URINALYSIS JXQLBPGMOwkodrh32/24/2025 11:21 AM EST 18 weeks gestation of ([facility]) GLUCOSE 1 LTKUXlciccd60/15/2025 1:02 PM EST POCT URINALYSIS VZTRDSMOQdrnske84/27/2025 10:57 AM EDT 14 weeks gestation of ([facility]) [facility] DRUG SCREEN RAPID (URINE)Otgsleg9805/13/2025 3:25 PM EDT URINE CULTURE, ZBELAPFUqhzqab13/22/2025 3:25 PM EDT HBSAG PLAGABUdrhjnn57/22/2025 3:10 PM EDT RAPID PLASMA REAGIN, TNTGFWmcmpax27/22/2025 3:10 PM EDT HCV ANTIBODY RFX TO QUANT TXDCwgthar15/22/2025 3:10 PM EDT ALL RUBELLA IGG HEEropagm76/22/2025 3:10 PM EDT HIV AB/P24 AG WITH SRJTMHHvfhcsf35/22/2025 3:10 PM EDT ALL TYPE AND OEDNZWCkkplyt83/22/2025 3:10 PM EDT ALL CBC WITH AUTO NXPPPizdean39/22/2025 3:10 PM EDT MLR HEMOGLOBIN V4OEiyilym18/22/2025 3:10 PM EDT POCT , CNCSTRfxmvyy40/25/2025 2:48 PM EDT Missed menses POCT URINALYSIS JKMAJHXIDtvqovt17/25/2025 2:47 PM EDT Missed menses US OB VXZNTUAFNIVJFucddrr12/25/2025 1:36 PM EDT Missed menses Positive urine test ([facility]) from Last 3 Months Results * (ABNORMAL) [...] Location / LateralityCollection Method / VolumeCollection TimeReceived JaziQjcxm74/23/2025 10:38 AM EST Narrative Authorizing ProviderResult TypeResult StatusCorey Jay DOPOINT OF CARE TEST ENTER/EDIT ORDERABLESFinal Result * US OB CERVICAL LENGTH (07/06/2025 11:52 PM EST)Anatomical RegionLaterality ModalityOtherSpecimen (Source)Anatomical Location / LateralityCollection Method / VolumeCollection TimeReceived Time07/06/2025 11:52 PM EST Narrative 07/06/2025 11:55 PM EST [facility] ?[address] ? [place] [address] ? Ultrasound Report ? Signed ? Patient: WHITRIGHT,JOSE MARIA S M ?MR#: [id number] ?? : 1995 ?Acct:[id number] ?? Age/Sex: 30 / F ?ADM Date: 12/15/25 ?? Loc: FBCO ? Attending Dr: Sofía Thompson D.O. ? Ordering Physician: Sofía Thompson D.O. ?? Date of Service: 07/06/25 ?? Procedure(s): US OB cervical length ?? Accession Number(s): [id number] ? cc: Sofía Thompson D.O.; Physician,Non-Staff Maria Teresa ? [facility] ? [address] ? [place] [address] ? Patient Name: ?? JOSE MARIA CORONA ? MRN: [facility]:[id number] ? date: 1995 ?Sex: F ?? Assigned Patient Location: FB ?? Current Patient Location: FB ?? Accession/Order Number: [id number] ?? Exam Date: 07/06/2025 ??23:15 ?Report Date: [...] M.D. ??07/06/2025 11:52 PM ? Dictation Location: RADIO-PC-17 ? Electronically authenticated by: [id number] ??Y ?? Date: 07/06/2025 ??23:52 ? Dictated By: ?Kenroy Alaniz M.D. ? Signed By: ?07/06/25 2355 ? DD/ 2352 ? TD/TT: ? E Merchant: Procedure Note Radiology, Radiologist, MD - 07/06/2025 [place] [address] Ultrasound Report Signed Patient: JOSE MARIA CORONA MMR#: [id number] : 1995Acct:[id number] Age/Sex: 30 / FADM Date: 07/06/25 Loc: FBCO Attending Dr: Sofía Thompson D.O. Ordering Physician: Sofía Thompson D.O. Date of Service: 07/06/25 Procedure(s): US OB cervical length Accession Number(s): [id number] cc: Sofía Thompson D.O.; Physician,Non-Staff Maria Teresa [facility] [address] [place] [address] Patient Name: JOSE MARIA CORONA MRN: [facility]:[id number] date: 1995 Sex: F Assigned Patient Location: [facility] Current Patient Location: [facility] Accession/Order Number: [id number] Exam Date: 07/06/2025 23:15 Report Date: 07/06/2025 [...] Alaniz M.D. 07/06/2025 11:52 PM Dictation Location: [place] [address] Electronically authenticated by: [id number] Y Date: 3:52 Dictated By: Kenroy Alaniz M.D. Signed By:07/06/251 DD/ 51 TD/TT: E Merchant: Authorizing ProviderResult TypeResult StatusCorey Jay DOCLINISYNC IMAGINGFinal Result * URINE CULTURE - [facility] (07/06/2025 10:00 PM EST)ComponentValueRef RangeTest MethodAnalysis TimePerformed AtPathologist SignatureURINE CULTURE - [facility] ??Urine Culture - [facility] SEEFR [facility] RESULT^[facility] RESULT TBHURINE [facility] SEE SCANNED REPORT, NORMAL^SEE SCANNED REPORT, NORMALTBHSpecimen (Source)Anatomical Location / LateralityCollection Method / VolumeCollection TimeReceived Time07/06/2025 10:00 PM EST07/06/2025 10:13 PM EST Narrative [facility] - 07/09/2025 1:32 PM EST Authorizing ProviderResult TypeResult StatusCorey Jay DOLAB BLOOD ORDERABLES Final ResultPerforming OrganizationAddressCity/State/ZIP CodePhone Number [facility] * (ABNORMAL) [facility] UA (CLEAN/CATCH) CASTING INSPECTOR/MICRO IF IND. (07/06/2025 10:00 PM EST) ComponentValueRef [...] Jay DOCLINISYNCFinal Result Performing OrganizationAddressCity/State/ZIP CodePhone Number [facility] * Urine culture (07/06/2025 10:00 PM EST)ComponentValueRef RangeTest Method Analysis TimePerformed AtPathologist SignatureFR NOTE?20,000 colonies/ml mixed ?bacterial skin contaminants ?2 Days 07/09/2025 11:26 AM [facility] CtrSpecimen (Source)Anatomical Location / LateralityCollection Method / VolumeCollection TimeReceived TimeUrine Urine specimen obtained by clean catch procedure / Lyqzkqw0407/06/2025 10:00 PM EST07/07/2025 1:28 PM ESTComment:Clean-Voided Midstream Narrative [facility] - 07/09/2025 11:26 AM EST Diagnosis: Bleeding Comment: Authorizing ProviderResult TypeResult StatusCorey Jay DOLAB MICROBIOLOGY - GENERAL ORDERABLESFinal ResultPerforming OrganizationAddressCity/State/ZIP Code Phone Number [facility] [address] [id number], [facility] [address] [place] [address] * OB 14+ weeks anatomy scan (06/30/2025 [...] RangeTest Method Analysis TimePerformed AtPathologist SignatureGLUCOSE 1 MRFD729<130 mg/dLTB Specimen (Source)Anatomical Location / LateralityCollection Method / Volume Collection TimeReceived Time06/06/2025 1:02 PM EST06/06/2025 1:07 PM EST Narrative [facility] - 06/06/2025 1:49 PM EST Authorizing ProviderResult TypeResult StatusCorey Jay DOLAB BLOOD ORDERABLES Final ResultPerforming OrganizationAddressCity/State/ZIP CodePhone Number [facility] * URINE CULTURE, ROUTINE (05/13/2025 3:25 PM EDT)ComponentValueRef RangeTest MethodAnalysis TimePerformed AtPathologist SignatureURINE CULTURE, ROUTINE ??Urine Culture, Routine TBHURINE CULTURE, ROUTINEMixed urogenital floraTBHURINE CULTURE, RDTVWUQ02,000- 25,000 colony forming units per mLTBHURINE CULTURE, ROUTINEPerformed at: [facility] LabCorewell Health Ludington HospitalTBHURINE CULTURE, [id number] [place], [place] [address] URINE CULTURE, ROUTINELab Director: Barrington Reyes PhD, Phone: [phone] Specimen (Source)Anatomical Location / LateralityCollection Method / Volume Collection TimeReceived Time05/13/2025 3:25 PM EDT1 3:25 PM EDT Narrative [facility] - 05/16/2025 7:07 AM EDT Authorizing ProviderResult TypeResult StatusCorey Jay DOLAB BLOOD ORDERABLES Final ResultPerforming OrganizationAddressCity/State/ZIP CodePhone Number [facility] * [facility] DRUG SCREEN RAPID (URINE) (05/13/2025 [...] 3:25 PM EDT1 3:25 PM EDT Narrative [facility] - 05/13/2025 4:23 PM EDT Authorizing ProviderResult TypeResult StatusCorey Jay DOCLINISYNCFinal Result Performing OrganizationAddressCity/State/ZIP CodePhone Number [facility] * HBSAG SCREEN (05/13/2025 3:10 PM EDT)ComponentValueRef RangeTest Method Analysis TimePerformed AtPathologist SignatureHBSAG SCREENTNP.TBHComment: Please refer to the following specimen for additional lab results. Please refer to [phone] for results. Specimen (Source)Anatomical Location / LateralityCollection Method / Volume Collection TimeReceived Time05/13/2025 3:10 PM EDT1 3:14 PM EDT Narrative [facility] - 05/14/2025 5:08 PM EDT Authorizing ProviderResult TypeResult StatusCorey Jay DOLAB BLOOD ORDERABLES Final ResultPerforming OrganizationAddWellSpan Surgery & Rehabilitation Hospitalty/State/ZIP CodePhone Number [facility] * RAPID PLASMA REAGIN, QUANT (05/13/2025 3:10 PM EDT)ComponentValueRef RangeTest MethodAnalysis TimePerformed AtPathologist SignatureRAPID PLASMA REAGIN, QUANT TNP. titerTBHComment: Please refer to the following specimen for additional lab results. Please refer to [phone] for results. Please Note: This test does not meet current guidelines for screening and diagnosis of syphilis. This test is intended for following treatment response in patients being treated for syphilis infection. To screen for syphilis infection, a reflex cascade that includes both RPR and a treponema-specific assay should be utilized, such as Treponema pallidum (Syphilis) Screening [place] (839698) or Rapid Plasma Reagin (RPR) Test With Reflex to Quantitative RPR and Confirmatory Treponema pallidum Antibodies (577707). Specimen (Source)Anatomical Location / LateralityCollection Method / Volume Collection TimeReceived Time05/13/2025 3:10 PM EDT1 3:14 PM EDT [facility] - 05/14/2025 5:08 PM EDT Authorizing ProviderResult TypeResult StatusCorey Jay DOLAB BLOOD ORDERABLES Final ResultPerforming OrganizationAddressty/State/ZIP CodePhone Number [facility] * HIV AB/P24 AG WITH REFLEX (05/13/2025 3:10 PM EDT)ComponentValueRef RangeTest MethodAnalysis TimePerformed AtPathologist SignatureHIV AB/P24 AG SCREENNon ReactiveNon ReactiveTBHComment: HIV-1/HIV-2 antibodies and HIV-1 p24 antigen were NOT detected. There is no laboratory evidence of HIV infection. HIV Negative Performed at: ?? - [facility] [address] ??[id number] Management Development Specialist: Barrington Reyes PhD, Phone: ??[phone] Specimen (Source)Anatomical Location / LateralityCollection Method / Volume Collection TimeReceived Time05/13/2025 3:10 PM EDT1 3:14 PM EDT Narrative [facility] - 05/14/2025 5:08 AM EDT Authorizing ProviderResult TypeResult StatusCorey Jay DOLAB BLOOD ORDERABLES Final ResultPerforming OrganizationAddressty/State/ZIP CodePhone Number [facility] * HCV ANTIBODY RFX TO QUANT PCR [...] 3:10 PM EDT1 3:14 PM EDT Narrative [facility] - 05/14/2025 6:08 AM EDT Authorizing ProviderResult TypeResult StatusCorey Jay DOLAB BLOOD ORDERABLES Final ResultPerforming OrganizationAddressCity/State/ZIP CodePhone Number [facility] * MLR HEMOGLOBIN A1C (05/13/2025 3:10 PM EDT)ComponentValueRef RangeTest Method Analysis TimePerformed AtPathologist SignatureGLYCOHEMOGLOBIN A1C5.24.5 - 6.2 %TBHComment: ADA RECOMMENDED LIMIT 4.0 - 6.0 ADA THERAPEUTIC TARGET < 7.0 ACTION SUGGESTED > 7.0 ESTIMATED AVERAGE MJRHXSF406dz/dLTBHSpecimen (Source)Anatomical Location / LateralityCollection Method / VolumeCollection TimeReceived Time05/13/2025 3:10 PM EDT1 3:14 PM EDT Narrative [facility] - 05/13/2025 3:31 PM EDT Authorizing ProviderResult TypeResult StatusCorey Jay DOCLINISYNCFinal Result Performing OrganizationAddressCity/State/ZIP CodePhone Number [facility] * ALL TYPE AND SCREEN (05/13/2025 3:10 PM EDT)ComponentValueRef RangeTest Method Analysis TimePerformed AtPathologist SignatureBLOOD TYPEA PositiveTBHANTIBODY SCREENNEGATIVETBHSpecimen (Source)Anatomical Location / LateralityCollection Method / VolumeCollection TimeReceived Time05/13/2025 3:10 PM EDT1 3:14 PM EDT Narrative [facility] - 05/13/2025 4:47 PM EDT [facility] , Authorizing ProviderResult TypeResult StatusCorey Jay DOCLINISYNCFinal Result Performing OrganizationAddressCity/State/ZIP CodePhone Number [facility] * ALL RUBELLA IGG AB (05/13/2025 3:10 PM EDT)ComponentValueRef RangeTest Method Analysis TimePerformed AtPathologist SignatureRUBELLA ANTIBODIES, IGG1.91 Immune >0.99 indexTBHComment: Non-immune <0.90 ?Equivocal ??0.90 - 0.99 Immune >0.99 Performed at: ?? - [facility] [address] ??[id number] Management Development Specialist: Barrington Reyes PhD, Phone: ??[phone] Specimen (Source)Anatomical Location / LateralityCollection Method / Volume Collection TimeReceived Time05/13/2025 3:10 PM EDT1 3:14 PM EDT Narrative [facility] - 05/14/2025 6:08 AM EDT Authorizing ProviderResult TypeResult StatusCorey Jay DOCLINISYNCFinal Result Performing OrganizationAddChestnut [facility] Hospital/[facility] CodePhone Number [facility] * (ABNORMAL) ALL CBC WITH AUTO DIFF (05/13/2025 3:10 PM EDT)ComponentValueRef RangeTest MethodAnalysis TimePerformed AtPathologist SignatureTBH WBC13.0(H) 4.0 - 11.0 10 3/uLTBHTBH RBC4.364.20 - 5.40 10 6/uLTBHTBH HGB13.812.0 - 16.0 g/dLTBHTBH HCT40.136.0 - 48.0 %TBHTBH MCV92.081.0 - 99.0 fLTBHTBH MCH31.726.7 - 34.0 pgTBHTBH MCHC34.429.9 - 35.2 g/dLTBHTBH RDW11.911.0 - 15.0 %TBHTBH PLT 049783 - 450 10 3/uLTBHTBH MPV11.09.5 - 13.5 [...] Jay DOCLINISYNCFinal Result Performing OrganizationAddressCity/State/ZIP CodePhone Number [facility]INISYFORMERLY [facility], [facility] * (ABNORMAL) POCT , urine manually [...] Months Insurance Care Teams Team MemberRelationshipSpecialtyStart DateEnd Virginia Oviedo MD [address] [place] [address] PCP - GeneralFamily Medicine11/17/24
--- OUTSIDE RECORDS SUMMARY | 2025-07-14 19:54 | XMS_ITS | Encounter Summary ---
Author Organization [facility] Address [address] [place] [address] Care Team Providers Care Cardiovascular Tech Name Role Phone Virginia Oviedo MD Primary Care Provider [phone] Encounter Details DateTypeDepartmentCare Team (Latest Contact Info)Nfepjkmmqnf68/17/2025Telephone [facility] [address] [place] [address] Hung Thompson, [address] [place], [facility] Social History Tobacco UseTypesPacks/DayYears UsedDateSmoking Tobacco: Never Assessed Estimated Date of CfefcnnrCkaaewgjKiu78/26/2026ased on Ultrasound, FHR: 175Sex and Gender InformationValueDate RecordedSex Assigned at BirthNot on fileLegal KfqFnkdur13/15/2023 7:28 PM EDTGender IdentityNot on fileSexual OrientationNot [...] was advised will have to verify with equipment tech on these results. Patient was advised we will have the placenta in 4 weeks when we get anatomy back and if need to do that we can schedule at that time. PVU and she was transferred to clerical to schedule. documented in this encounter Plan of Treatment DateTypeDepartmentCare Team (Latest Contact Info)Mdzirebuohj21/06/2026 11:30 AM ESTAncillary Procedure [facility] JIANGN [address] [place] [phone] 08/12/2025 9:30 AM ESTRoutine [facility] JIANGN [address] [place] [address] Chante Queen, WEB RETAILER [address] [place] [phone] NameTypePriorityAssociated DiagnosesOrder ScheduleUS OB limited 1+ fetuses ImagingRoutine Low-lying placenta ([facility]) Expected: 07/08/2025, Expires: 10/06/2025documented as of this encounter Visit Diagnoses Diagnosis Low-lying placenta ([facility]-HCC) Hemorrhage from placenta previa, unspecified as to episode of care documented in this encounter Care Teams Team MemberRelationshipSpecialtyStart DateEnd Date Virginia Oviedo MD [address] [place] [address] PCP - GeneralFamily Medicine11/17/24documented as of this encounter
--- OUTSIDE RECORDS SUMMARY | 2025-07-14 19:54 | XMS_ITS | Clinical Summary ---
Author Organization [facility] Address [address], [address] [place] [address] Care Team Providers Care Litigation Manager Name Role Phone Virginia Oviedo MD Primary Care Provider [phone] Allergies Active AllergyReactionsCriticalityNoted DateCommentsDoxycyclineHivesMedium 08/25/2023 Medications MedicationSigDispense QuantityRefillsLast FilledStart DateEnd DateStatus pantoprazole (PROTONIX) 20 MG tablet Take 1 tablet by mouth every morning (before breakfast) 90 tablet ctive naproxen (NAPROSYN) 375 MG tablet Take 1 tablet 2 times a days with food for 5 days, then 1 tablet 2 times a day as needed for pain 40 tablet 09/19/2023ctive Active Problems ProblemNoted DateDiagnosed JvzeCjptfxxojgbgg90/03/2024 Resolved Problems ProblemNoted DateDiagnosed DateResolved LitkKgbpnchfcvgqz70/05/202402/ Acute biliary pancreatitis without infection or bmnpzobc70/ Ylzeibperckl11/03/202402/ Social History Tobacco UseTypesPacks/DayYears UsedDateSmoking Tobacco: NeverSmokeless [...] Source: IP Abuse ScreeningAnswerDate RecordedRead-Only, Retired: Physical NtiyxIwvnst47/28/2024Read-Only, Retired: Verbal QzmjlUgquxg48/28/2024 Read-Only, Retired: Emotional pqfuoKvnmsw51/28/2024Read-Only, Retired: Financial AjsnuHovkxv88/28/2024ead-Only, Retired: Sexual tkpifAsepin78/28/2024 CommentsNoSex and Gender InformationValueDate RecordedSex Assigned at BirthNot on fileLegal JokWjcmay18/03/2024 3:23 AM ESTGender IdentityNot on fileSexual OrientationNot on file Last Filed Vital Signs Vital SignReadingTime TakenCommentsBlood Achpacli968/69010/04/2023 9:11 AM EDT Kdxmv63697/14/2024 9:11 AM UMOJhikvhlgufr10.8 ??C (98.3 ??F)10/04/2023 9:11 AM EDTRespiratory Albx086309/19/2023 4:00 PM ESTOxygen Twcxananpj09%09/19/2023 4:00 PM ESTInhaled Oxygen Concentration--Zwpumi13.3 kg (144 lb)10/04/2023 9:11 AM EDT Dzcbcm453.7 cm (5' 8 )09/03/2023 1:21 PM ESTBody Mass Index21.902 1:21 PM EST Plan of Treatment Health MaintenanceDue DateLast DoneCommentsDepression Zbamxt9004/17/2009HIV screen 2012Hepatitis C cjagtm4704/17/2015Pap smear2018DTaP/Tdap/Td vaccine (8 - Td or Tdap)5011/14/2014, 04/20/2008, 12/11/2001, Additional history existsFlu vaccine (#1)51COVID-19 Vaccine ( - season) 2025Hepatitis B xivttqfWuopcchch64/08/1998, 1997, 1997Hib chnibyoJfkpexkag14/27/1999, 1997, 1997, Additional history exists Polio hkapjxvTniuvutze13/22/2002, 08/18/1998, 1997, Additional history existsVaricella pzorslzWdzsajvmf84/29/2008, 08/18/1998HPV vaccineCompleted 10/29/2008, 06/25/2008, 04/20/2008Meningococcal (ACWY) vaccineCompleted [...] Date Virginia Oviedo MD [address] [place] [address] PCP - GeneralFamily Medicine08/25/23
--- OUTSIDE RECORDS SUMMARY | 2025-07-14 19:54 | XMS_ITS | Encounter Summary ---
Author Organization [facility] Address [address] [place] [address] Care Team Providers Care Skills Auditor Name Role Phone Virginia Oviedo MD Primary Care Provider [phone] Encounter Details DateTypeDepartmentCare Team (Latest Contact Info)Kejpojlffwd70/15/2025bstract [facility] [address] [place] [address] Hung Thompson DO [address] Lili Portillo, [id number] Social History Tobacco UseTypesPacks/DayYears UsedDateSmoking Tobacco: Never Assessed Estimated Date of ToirolywVlhnhxrmSod71/26/2026Based on Ultrasound, FHR: 175Sex and Gender InformationValueDate RecordedSex Assigned at BirthNot on fileLegal WrtAtmcfu38/15/2023 7:28 PM EDTGender IdentityNot on fileSexual OrientationNot on filedocumented as of this encounter Plan of Treatment DateTypeDepartmentCare Team (Latest Contact Info)Xmhmftwmzuf53/06/2026 11:30 AM ESTAncillary Procedure [facility] [address] [place] [address] 08/12/2025 9:30 AM ESTRoutine [facility] [address] [place] [address] Chante Queen, DES [address] [place] [address] documented as of this encounter Visit Diagnoses Not on filedocumented in this encounter Care Teams Team MemberRelationshipSpecialtyStart DateEnd Date Virginia Oviedo MD [address] [place] [address] PCP - GeneralFamily Medicine11/17/24documented as of this encounter
== END 2025-07-14 19:51 | disposition home or self-care (01) ==
LOC: LAB 19:50
PROVIDERS: Visit Provider Obstetrics & Gynecology
DX: Z01.419 Encounter for gynecological examination (general) (routine) without abnormal findings (principal)